=== PATIENT | male | born 1950 | race American Indian/Alaskan Native ===

== ENCOUNTER 2016-07-13 10:51 | Inpatient (IN) | payer MEDICARE, OTHER ==
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
[2016-07-13 11:24] VITALS: BMI 25.9
[2016-07-13 12:39] LABS: BASO # 0.1 K/uL (0.0-0.2); BASO % 0.8 % (0.0-2.0); EOS # 0.1 K/uL (0.0-0.7); EOS % 1.5 % (0.0-4.0); HEMATOCRIT 39.3 % (35.0-51.0); LYMPH # 1.6 K/uL (1.0-4.3); LYMPH % 21.9 % (20.0-40.0); MEAN CORPUSCULAR HEMOGLOBIN 30.4 pg (27.0-31.0); MEAN CORPUSCULAR HGB CONC 32.2 g/dL (33.0-37.0); MEAN PLATELET VOLUME 8.3 fL (7.2-11.7); MONO # 0.7 K/uL (0.0-0.8); MONO % 9.2 % (0.0-10.0); NRBC % 0.1 % (0.0-2.0); RED CELL DISTRIBUTION WIDTH 16.8 % (11.5-14.5)
[2016-07-13 12:41] LABS: MEAN CELL VOLUME 94.5 fL (80.0-94.0); WHITE BLOOD COUNT 7.1 K/uL (4.8-10.8)
[2016-07-13 13:24] LABS: CHLORIDE 102 mmol/L (98-107); SODIUM 136 mmol/L (132-148)
[2016-07-13 13:25] LABS: POTASSIUM 3.8 mmol/L (3.6-5.2)
[2016-07-13 13:26] LABS: GFR AFRICAN-AMERICAN > 60
[2016-07-13 13:27] LABS: ALKALINE PHOSPHATASE 128 U/L (38-126); ALT/SGPT 27 U/L (21-72); AST/SGOT 39 U/L (17-59); BILIRUBIN,TOTAL 1.8 mg/dL (0.2-1.3); BLOOD UREA NITROGEN 13 mg/dL (9-20); CALCIUM 9.2 mg/dl (8.6-10.4); CARBON DIOXIDE 23 mmol/L (22-30); GLUCOSE,RANDOM 88 mg/dL (75-110); TOTAL PROTEIN 8.2 g/dL (6.3-8.3)
[2016-07-13 13:28] LABS: ALCOHOL SERUM < 10 mg/dl (0-10)
[2016-07-13] MEDS ORDERED: Iodixanol 320 MG/ML 100 ML BOTTLE IV ONE (15:00)
[2016-07-13 15:11] LABS: RBC URINE 2 /hpf (0-3); URINE BILIRUBIN NEGATIVE (NEGATIVE); URINE BLOOD 1+ (NEGATIVE); URINE COLOR Yellow (YELLOW); URINE GLUCOSE (UA) NORMAL (Normal); URINE KETONE TRACE mg/dL (NEGATIVE); URINE LEUKOCYTE ESTERASE NEG Leu/uL (Negative); URINE PROTEIN 2+ mg/dL (NEGATIVE); URINE UROBILINOGEN NORMAL mg/dL (0.2-1.0); WBC URINE 1 /hpf (0-5)
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
[2016-07-13] MEDS ORDERED: Sodium Chloride 0.9% 1,000 ML IV ONE (15:46)
[2016-07-13] MEDS ORDERED: Morphine 4 MG/ML VIAL ONE (16:54)
[2016-07-13] MEDS ORDERED: Moxifloxacin IV 400mg/250ml NS 400 MG/250 ML BAG IVPB ONE ×2 (16:59→21:24)
[2016-07-13] MEDS ORDERED: Azithromycin 500 MG in Sodium Chloride 0.9% 250 ML IVPB STA (17:01)
[2016-07-13] MEDS ORDERED: Azithromycin 500mg/250ML NS 500 MG/250 ML BAG IVPB ONE (18:17)
[2016-07-13 18:29] LABS: C DIFF TOXIN A B POSITIVE ANTIGEN (NEGATIVE)
[2016-07-13 19:36] LABS: FECAL LEUKOCYTES NEGATIVE (NEGATIVE)
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
[2016-07-13] MEDS: Moxifloxacin IV 400mg/250ml NS 400 MG/250 ML BAG IVPB SCH (21:29)
[2016-07-13] MEDS ORDERED: LYRICA 75 MG PO SCH (21:30)
[2016-07-13] MEDS ORDERED: PERCOCET PO PRN (21:30)
[2016-07-13] MEDS ORDERED: Enoxaparin 150 mg Syringe SC SCH (21:30)
[2016-07-13] MEDS ORDERED: ZOLPIDEM 10 MG PO SCH (22:00)
[2016-07-13] MEDS: Dextrose 5%/0.9% NS 1,000 ML IV SCH (22:09)
[2016-07-13] MEDS: Oxycodone/Acetaminophen 5/325 mg Tab PO PRN (22:13)
[2016-07-14] MEDS: Vancomycin 125 MG/5 ML SOLN (ORAL/RECTAL) PO SCH ×5 (00:08→21:17)
[2016-07-14] MEDS: metroNIDAZOLE IV 500 mg/100 ml 500 MG/100 ML BAG IVPB SCH ×4 (00:10→22:09)
[2016-07-14] MEDS: Oxycodone/Acetaminophen 5/325 mg Tab PO PRN ×2 (08:42→14:47)
--- NOTE | 2016-07-14 13:27 | CP.PCM.PN ---
Subjective - Date & Time of Evaluation Date of Evaluation: 07/14/16 Time of Evaluation: 09:20 - Subjective Subjective: clinically same Objective - Vital Signs/Intake and Output Vital Signs (last 24 hours): Temp Pulse Resp BP Pulse Ox 98.6 F 83 20 136/65 98 07/14/16 08:09 07/14/16 08:09 07/14/16 08:09 07/14/16 08:09 07/14/16 08:09 Intake and Output: 07/14/16 07/14/16 06:59 18:59 Intake Total 720 Output Total 200 Balance 520 - Medications Medications: Current Medications Amlodipine Besylate (Norvasc) 10 mg PO DAILY [facility] Last Admin: 07/14/16 11:31 Dose: 10 mg Enoxaparin Sodium (Lovenox) 40 mg SC DAILY [facility] Dextrose/Sodium Chloride (Dextrose 5%/0.9% Ns 1000 Ml) 1,000 mls @ 75 mls/hr IV .[id number] [facility] Last Admin: 07/13/16 22:09 Dose: 75 mls/hr Moxifloxacin HCl (Avelox Iv 400mg/250ml Ns) 400 mg in 250 mls @ 167 mls/hr IVPB Q24H [facility] Last Admin: 07/13/16 21:29 Dose: Not Given Metronidazole (Flagyl) 500 mg in 100 mls @ 100 mls/hr IVPB Q8 [facility] Last Admin: 07/14/16 05:17 Dose: 100 mls/hr Oxycodone/Acetaminophen (Percocet 5/325 Mg Tab) 2 tab PO Q6 PRN PRN Reason: Pain, moderate (4-7) Last Admin: 07/14/16 08:42 Dose: 2 tab Pantoprazole Sodium (Protonix Inj) 40 mg IVP DAILY [facility] Last Admin: 07/14/16 11:31 Dose: 40 mg Pregabalin (Lyrica) 75 mg PO BID [facility] Last Admin: 07/14/16 11:31 Dose: 75 mg Vancomycin HCl (Vancocin (Oral Or Rectal Use)) 125 mg PO QID [facility] Last Admin: 07/14/16 11:31 Dose: 125 mg Zolpidem Tartrate (Ambien) 5 mg PO HS PRN PRN Reason: Insomnia Last Admin: 07/13/16 22:40 Dose: 5 mg - Labs Labs: PT 11.1 SECONDS (9.7-12.2) 07/13/16 14:24 INR 1.0 07/13/16 14:24 APTT 29 SECONDS (21-34) 07/13/16 14:24 - Constitutional Appears: Well - Head Exam Head Exam: ATRAUMATIC, NORMAL INSPECTION, NORMOCEPHALIC - Eye Exam Eye Exam: EOMI, Normal appearance, PERRL Pupil Exam: NORMAL ACCOMODATION, PERRL - ENT Exam ENT Exam: Mucous Membranes Moist, Normal Exam - Neck Exam Neck Exam: Full ROM, Normal Inspection. absent: Lymphadenopathy - Respiratory Exam Respiratory Exam: Decreased Breath Sounds - Cardiovascular Exam Cardiovascular Exam: REGULAR RHYTHM, +S1, +S2 - GI/Abdominal Exam GI & Abdominal Exam: Soft, Diminished Bowel Sounds - Rectal Exam Rectal Exam: Deferred Assessment and Plan (1) Abdominal pain Status: Acute (2) Abdominal pain Status: Acute (3) Asthma Status: Acute (4) Colitis Status: Acute (5) Diarrhea Status: Acute (6) HIV (human immunodeficiency virus infection) Status: Acute (7) HIV (human immunodeficiency virus infection) Status: Acute (8) Hepatitis B Status: Acute (9) Hepatitis C antibody test positive Status: Acute (10) Pancytopenia Status: Acute (11) Prophylactic measure Status: Acute (12) Rectal bleeding Status: Acute (13) Thrombocytopenia Status: Acute (14) Hypertension Status: Chronic - Assessment and Plan (Free Text) Plan: protonix lovenox avelox stool work up marjorie same ivf vanco po
[2016-07-14] MEDS: Enoxaparin 40 mg Syringe SC SCH (14:24)
[2016-07-14] MEDS: Dextrose 5%/0.9% NS 1,000 ML IV SCH ×2 (14:25)
[2016-07-14] MEDS: Moxifloxacin IV 400mg/250ml NS 400 MG/250 ML BAG IVPB SCH (20:30)
[2016-07-15] MEDS: Oxycodone/Acetaminophen 5/325 mg Tab PO PRN ×4 (03:40→22:39)
[2016-07-15] MEDS: metroNIDAZOLE IV 500 mg/100 ml 500 MG/100 ML BAG IVPB SCH ×3 (05:17→21:00)
[2016-07-15] MEDS: Dextrose 5%/0.9% NS 1,000 ML IV SCH ×4 (05:18→21:41)
[2016-07-15] MEDS: Enoxaparin 40 mg Syringe SC SCH (09:38)
[2016-07-15] MEDS: Vancomycin 125 MG/5 ML SOLN (ORAL/RECTAL) PO SCH ×4 (09:39→21:38)
--- NOTE | 2016-07-15 12:54 | CP.PCM.PN ---
Subjective - Date & Time of Evaluation Date of Evaluation: 07/15/16 Time of Evaluation: 09:40 - Subjective Subjective: clinically same Objective - Vital Signs/Intake and Output Vital Signs (last 24 hours): Temp Pulse Resp BP Pulse Ox 98.3 F 85 20 109/66 97 07/15/16 07:43 07/15/16 07:43 07/15/16 07:43 07/15/16 07:43 07/15/16 07:43 Intake and Output: 07/15/16 07/15/16 06:59 18:59 Intake Total 840 Balance 840 - Medications Medications: Current Medications Amlodipine Besylate (Norvasc) 10 mg PO DAILY [facility] Last Admin: 07/15/16 09:38 Dose: 10 mg Enoxaparin Sodium (Lovenox) 40 mg SC DAILY [facility] Last Admin: 07/15/16 09:38 Dose: 40 mg Dextrose/Sodium Chloride (Dextrose 5%/0.9% Ns 1000 Ml) 1,000 mls @ 75 mls/hr IV .[id number] [facility] Last Admin: 07/15/16 05:18 Dose: 75 mls/hr Moxifloxacin HCl (Avelox Iv 400mg/250ml Ns) 400 mg in 250 mls @ 167 mls/hr IVPB Q24H [facility] Last Admin: 07/14/16 20:30 Dose: 167 mls/hr Metronidazole (Flagyl) 500 mg in 100 mls @ 100 mls/hr IVPB Q8 [facility] Last Admin: 07/15/16 05:17 Dose: 100 mls/hr Oxycodone/Acetaminophen (Percocet 5/325 Mg Tab) 2 tab PO Q6 PRN PRN Reason: Pain, moderate (4-7) Last Admin: 07/15/16 09:38 Dose: 2 tab Pantoprazole Sodium (Protonix Inj) 40 mg IVP DAILY [facility] Last Admin: 07/15/16 09:38 Dose: 40 mg Pregabalin (Lyrica) 75 mg PO BID [facility] Last Admin: 07/15/16 09:38 Dose: 75 mg Vancomycin HCl (Vancocin (Oral Or Rectal Use)) 125 mg PO QID [facility] Last Admin: 07/15/16 09:39 Dose: 125 mg Zolpidem Tartrate (Ambien) 5 mg PO HS PRN PRN Reason: Insomnia Last Admin: 07/14/16 22:22 Dose: 5 mg - Labs Labs: PT 11.1 SECONDS (9.7-12.2) 07/13/16 14:24 INR 1.0 07/13/16 14:24 APTT 29 SECONDS (21-34) 07/13/16 14:24 - Constitutional Appears: Well - Head Exam Head Exam: ATRAUMATIC, NORMAL INSPECTION, NORMOCEPHALIC - Eye Exam Eye Exam: EOMI, Normal appearance, PERRL Pupil Exam: NORMAL ACCOMODATION, PERRL - ENT Exam ENT Exam: Mucous Membranes Moist, Normal Exam - Neck Exam Neck Exam: Full ROM, Normal Inspection. absent: Lymphadenopathy - Respiratory Exam Respiratory Exam: Decreased Breath Sounds - Cardiovascular Exam Cardiovascular Exam: REGULAR RHYTHM, +S1, +S2 - GI/Abdominal Exam GI & Abdominal Exam: Soft, Diminished Bowel Sounds - Rectal Exam Rectal Exam: Deferred Assessment and Plan (1) Abdominal pain Status: Acute (2) Abdominal pain Status: Acute (3) Asthma Status: Acute (4) Colitis Status: Acute (5) Diarrhea Status: Acute (6) HIV (human immunodeficiency virus infection) Status: Acute (7) HIV (human immunodeficiency virus infection) Status: Acute (8) Hepatitis B Status: Acute (9) Hepatitis C antibody test positive Status: Acute (10) Pancytopenia Status: Acute (11) Prophylactic measure Status: Acute (12) Rectal bleeding Status: Acute (13) Thrombocytopenia Status: Acute (14) Hypertension Status: Chronic - Assessment and Plan (Free Text) Plan: protonix lovenox avelox marjorie same ivf vanco po
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
[2016-07-15] MEDS: Moxifloxacin IV 400mg/250ml NS 400 MG/250 ML BAG IVPB SCH (21:39)
[2016-07-16] MEDS: Dextrose 5%/0.9% NS 1,000 ML IV SCH ×3 (02:50→17:17)
[2016-07-16] MEDS: Oxycodone/Acetaminophen 5/325 mg Tab PO PRN ×3 (05:26→17:18)
[2016-07-16] MEDS: metroNIDAZOLE IV 500 mg/100 ml 500 MG/100 ML BAG IVPB SCH ×3 (05:27→21:20)
[2016-07-16] MEDS: Vancomycin 125 MG/5 ML SOLN (ORAL/RECTAL) PO SCH ×4 (11:05→21:20)
[2016-07-16] MEDS: Enoxaparin 40 mg Syringe SC SCH (11:06)
--- NOTE | 2016-07-16 18:11 | CP.PCM.PN ---
Subjective - Date & Time of Evaluation Date of Evaluation: 07/16/16 Time of Evaluation: 09:00 - Subjective Subjective: clinically same Objective - Vital Signs/Intake and Output Vital Signs (last 24 hours): Temp Pulse Resp BP Pulse Ox 98.3 F 72 23 117/66 97 07/16/16 15:00 07/16/16 15:00 07/16/16 15:00 07/16/16 15:00 07/16/16 15:00 Intake and Output: 07/16/16 07/16/16 06:59 18:59 Intake Total 2610 1100 Balance 2610 1100 - Medications Medications: Current Medications Amlodipine Besylate (Norvasc) 10 mg PO DAILY [facility] Last Admin: 07/16/16 11:06 Dose: 10 mg Enoxaparin Sodium (Lovenox) 40 mg SC DAILY [facility] Last Admin: 07/16/16 11:06 Dose: 40 mg Dextrose/Sodium Chloride (Dextrose 5%/0.9% Ns 1000 Ml) 1,000 mls @ 75 mls/hr IV .[id number] [facility] Last Admin: 07/16/16 17:17 Dose: 75 mls/hr Moxifloxacin HCl (Avelox Iv 400mg/250ml Ns) 400 mg in 250 mls @ 167 mls/hr IVPB Q24H [facility] Last Admin: 07/15/16 21:39 Dose: 167 mls/hr Metronidazole (Flagyl) 500 mg in 100 mls @ 100 mls/hr IVPB Q8 [facility] Last Admin: 07/16/16 14:16 Dose: 100 mls/hr Oxycodone/Acetaminophen (Percocet 5/325 Mg Tab) 2 tab PO Q6 PRN PRN Reason: Pain, moderate (4-7) Last Admin: 07/16/16 17:18 Dose: 2 tab Pantoprazole Sodium (Protonix Inj) 40 mg IVP DAILY [facility] Last Admin: 07/16/16 11:05 Dose: 40 mg Pregabalin (Lyrica) 75 mg PO BID [facility] Last Admin: 07/16/16 17:18 Dose: 75 mg Vancomycin HCl (Vancocin (Oral Or Rectal Use)) 125 mg PO QID [facility] Last Admin: 07/16/16 17:21 Dose: 125 mg Zolpidem Tartrate (Ambien) 5 mg PO HS PRN PRN Reason: Insomnia Last Admin: 07/15/16 23:58 Dose: 5 mg - Labs Labs: PT 11.1 SECONDS (9.7-12.2) 07/13/16 14:24 INR 1.0 07/13/16 14:24 APTT 29 SECONDS (21-34) 07/13/16 14:24 - Constitutional Appears: Well - Head Exam Head Exam: ATRAUMATIC, NORMAL INSPECTION, NORMOCEPHALIC - Eye Exam Eye Exam: EOMI, Normal appearance, PERRL Pupil Exam: NORMAL ACCOMODATION, PERRL - ENT Exam ENT Exam: Mucous Membranes Moist, Normal Exam - Neck Exam Neck Exam: Full ROM, Normal Inspection. absent: Lymphadenopathy - Respiratory Exam Respiratory Exam: Decreased Breath Sounds - Cardiovascular Exam Cardiovascular Exam: REGULAR RHYTHM, +S1, +S2 - GI/Abdominal Exam GI & Abdominal Exam: Soft, Diminished Bowel Sounds - Rectal Exam Rectal Exam: Deferred Assessment and Plan (1) Abdominal pain Status: Acute (2) Abdominal pain Status: Acute (3) Asthma Status: Acute (4) Colitis Status: Acute (5) Diarrhea Status: Acute (6) HIV (human immunodeficiency virus infection) Status: Acute (7) HIV (human immunodeficiency virus infection) Status: Acute (8) Hepatitis B Status: Acute (9) Hepatitis C antibody test positive Status: Acute (10) Pancytopenia Status: Acute (11) Prophylactic measure Status: Acute (12) Rectal bleeding Status: Acute (13) Thrombocytopenia Status: Acute (14) Hypertension Status: Chronic - Assessment and Plan (Free Text) Plan: protonix lovenox avelox marjorie same ivf vanco po
[2016-07-16] MEDS: Moxifloxacin IV 400mg/250ml NS 400 MG/250 ML BAG IVPB SCH (20:35)
[2016-07-17 00:21] VITALS: RESP 20
[2016-07-17] MEDS: Oxycodone/Acetaminophen 5/325 mg Tab PO PRN ×4 (00:32→19:05)
[2016-07-17] MEDS: metroNIDAZOLE IV 500 mg/100 ml 500 MG/100 ML BAG IVPB SCH ×3 (05:18→22:32)
[2016-07-17] MEDS: Enoxaparin 40 mg Syringe SC SCH (11:18)
[2016-07-17] MEDS: Vancomycin 125 MG/5 ML SOLN (ORAL/RECTAL) PO SCH ×4 (11:18→21:30)
--- NOTE | 2016-07-17 12:06 | CP.PCM.PN ---
Subjective - Date & Time of Evaluation Date of Evaluation: 07/17/16 Time of Evaluation: 08:00 - Subjective Subjective: no new complaints discussed with dR lillie Longoria [employer] Objective - Vital Signs/Intake and Output Vital Signs (last 24 hours): Temp Pulse Resp BP Pulse Ox 98.4 F 73 20 138/82 100 07/17/16 08:00 07/17/16 08:00 07/17/16 08:00 07/17/16 08:00 07/17/16 08:00 Intake and Output: 07/17/16 07/17/16 06:59 18:59 Intake Total 1920 400 Balance 1920 400 - Medications Medications: Current Medications Acetaminophen (Tylenol 325mg Tab) 650 mg PO Q8 PRN PRN Reason: for pain Last Admin: 07/16/16 21:19 Dose: 650 mg Amlodipine Besylate (Norvasc) 10 mg PO DAILY [facility] Last Admin: 07/17/16 11:19 Dose: 10 mg Enoxaparin Sodium (Lovenox) 40 mg SC DAILY [facility] Last Admin: 07/17/16 11:18 Dose: 40 mg Moxifloxacin HCl (Avelox Iv 400mg/250ml Ns) 400 mg in 250 mls @ 167 mls/hr IVPB Q24H [facility] Last Admin: 07/16/16 20:35 Dose: 167 mls/hr Metronidazole (Flagyl) 500 mg in 100 mls @ 100 mls/hr IVPB Q8 [facility] Last Admin: 07/17/16 05:18 Dose: 100 mls/hr Oxycodone/Acetaminophen (Percocet 5/325 Mg Tab) 2 tab PO Q6 PRN PRN Reason: Pain, moderate (4-7) Last Admin: 07/17/16 06:33 Dose: 2 tab Pantoprazole Sodium (Protonix Inj) 40 mg IVP DAILY [facility] Last Admin: 07/17/16 11:18 Dose: 40 mg Pregabalin (Lyrica) 75 mg PO BID [facility] Last Admin: 07/17/16 11:19 Dose: 75 mg Vancomycin HCl (Vancocin (Oral Or Rectal Use)) 125 mg PO QID [facility] Last Admin: 07/17/16 11:18 Dose: 125 mg Zolpidem Tartrate (Ambien) 5 mg PO HS PRN PRN Reason: Insomnia Last Admin: 07/16/16 22:47 Dose: 5 mg - Labs Labs: PT 11.1 SECONDS (9.7-12.2) 07/13/16 14:24 INR 1.0 07/13/16 14:24 APTT 29 SECONDS (21-34) 07/13/16 14:24 - Constitutional Appears: Non-toxic, Cachectic, Chronically Ill - Head Exam Head Exam: NORMOCEPHALIC - Eye Exam Eye Exam: PERRL. absent: Scleral icterus - ENT Exam ENT Exam: Mucous Membranes Dry - Neck Exam Neck Exam: absent: Lymphadenopathy - Respiratory Exam Respiratory Exam: Decreased Breath Sounds, Rhonchi - Cardiovascular Exam Cardiovascular Exam: REGULAR RHYTHM, +S1, +S2 - GI/Abdominal Exam GI & Abdominal Exam: Distended, Soft. absent: Tenderness - Rectal Exam Rectal Exam: Deferred - Exam Exam: NORMAL INSPECTION - Extremities Exam Extremities Exam: absent: Pedal Edema - Back Exam Back Exam: absent: CVA tenderness (L), CVA tenderness (R) Assessment and Plan (1) HIV (human immunodeficiency virus infection) Status: Acute (2) HIV (human immunodeficiency virus infection) Status: Acute (3) Abdominal pain Status: Acute (4) Diarrhea Status: Acute (5) Abdominal pain Status: Acute (6) Colitis Status: Acute (7) Hepatitis C antibody test positive Status: Acute (8) Pancytopenia Status: Acute - Assessment and Plan (Free Text) Assessment: WOULD RESUME HIV MEDS
[2016-07-17 15:19] LABS: BASO % 0.5 % (0.0-2.0); EOS # 0.2 K/uL (0.0-0.7); HEMATOCRIT 31.8 % (35.0-51.0); LYMPH # 2.6 K/uL (1.0-4.3); LYMPH % 43.6 % (20.0-40.0); MEAN CELL VOLUME 94.2 fL (80.0-94.0); MEAN CORPUSCULAR HEMOGLOBIN 31.1 pg (27.0-31.0); MEAN PLATELET VOLUME 8.9 fL (7.2-11.7); MONO # 0.5 K/uL (0.0-0.8); MONO % 9.1 % (0.0-10.0); RED CELL DISTRIBUTION WIDTH 16.5 % (11.5-14.5)
[2016-07-17 15:33] LABS: CHLORIDE 108 mmol/L (98-107); POTASSIUM 3.7 mmol/L (3.6-5.2); SODIUM 135 mmol/L (132-148)
--- NOTE | 2016-07-17 15:33 | CP.PCM.PN ---
Subjective - Date & Time of Evaluation Date of Evaluation: 07/17/16 Time of Evaluation: 09:00 - Subjective Subjective: clinically same Objective - Vital Signs/Intake and Output Vital Signs (last 24 hours): Temp Pulse Resp BP Pulse Ox 98.4 F 73 20 138/82 100 07/17/16 08:00 07/17/16 08:00 07/17/16 08:00 07/17/16 08:00 07/17/16 08:00 Intake and Output: 07/17/16 07/17/16 06:59 18:59 Intake Total 1920 400 Balance 1920 400 - Medications Medications: Current Medications Acetaminophen (Tylenol 325mg Tab) 650 mg PO Q8 PRN PRN Reason: for pain Last Admin: 07/16/16 21:19 Dose: 650 mg Amlodipine Besylate (Norvasc) 10 mg PO DAILY [facility] Last Admin: 07/17/16 11:19 Dose: 10 mg Dicyclomine HCl (Bentyl) 20 mg PO QID [facility] Stop: 07/20/16 14:01 Last Admin: 07/17/16 14:06 Dose: 20 mg Enoxaparin Sodium (Lovenox) 40 mg SC DAILY [facility] Last Admin: 07/17/16 11:18 Dose: 40 mg Moxifloxacin HCl (Avelox Iv 400mg/250ml Ns) 400 mg in 250 mls @ 167 mls/hr IVPB Q24H [facility] Last Admin: 07/16/16 20:35 Dose: 167 mls/hr Metronidazole (Flagyl) 500 mg in 100 mls @ 100 mls/hr IVPB Q8 [facility] Last Admin: 07/17/16 14:08 Dose: 100 mls/hr Oxycodone/Acetaminophen (Percocet 5/325 Mg Tab) 2 tab PO Q6 PRN PRN Reason: Pain, moderate (4-7) Last Admin: 07/17/16 12:44 Dose: 2 tab Pantoprazole Sodium (Protonix Inj) 40 mg IVP DAILY [facility] Last Admin: 07/17/16 11:18 Dose: 40 mg Pregabalin (Lyrica) 75 mg PO BID [facility] Last Admin: 07/17/16 11:19 Dose: 75 mg Vancomycin HCl (Vancocin (Oral Or Rectal Use)) 125 mg PO QID [facility] Last Admin: 07/17/16 14:07 Dose: 125 mg Zolpidem Tartrate (Ambien) 5 mg PO HS PRN PRN Reason: Insomnia Last Admin: 07/16/16 22:47 Dose: 5 mg - Labs Labs: 07/17/16 15:09 PT 11.1 SECONDS (9.7-12.2) 07/13/16 14:24 INR 1.0 07/13/16 14:24 APTT 29 SECONDS (21-34) 07/13/16 14:24 - Constitutional Appears: Well - Head Exam Head Exam: ATRAUMATIC, NORMAL INSPECTION, NORMOCEPHALIC - Eye Exam Eye Exam: EOMI, Normal appearance, PERRL Pupil Exam: NORMAL ACCOMODATION, PERRL - ENT Exam ENT Exam: Mucous Membranes Moist, Normal Exam - Neck Exam Neck Exam: Full ROM, Normal Inspection. absent: Lymphadenopathy - Respiratory Exam Respiratory Exam: Decreased Breath Sounds - Cardiovascular Exam Cardiovascular Exam: REGULAR RHYTHM, +S1, +S2 - GI/Abdominal Exam GI & Abdominal Exam: Soft, Diminished Bowel Sounds - Rectal Exam Rectal Exam: Deferred Assessment and Plan (1) Abdominal pain Status: Acute (2) Abdominal pain Status: Acute (3) Asthma Status: Acute (4) Colitis Status: Acute (5) Diarrhea Status: Acute (6) HIV (human immunodeficiency virus infection) Status: Acute (7) HIV (human immunodeficiency virus infection) Status: Acute (8) Hepatitis B Status: Acute (9) Hepatitis C antibody test positive Status: Acute (10) Pancytopenia Status: Acute (11) Prophylactic measure Status: Acute (12) Rectal bleeding Status: Acute (13) Thrombocytopenia Status: Acute (14) Hypertension Status: Chronic - Assessment and Plan (Free Text) Plan: f/u with ID protonix lvoenox avelox marjorie same ivf vanco po
[2016-07-17 15:36] LABS: BLOOD UREA NITROGEN 8 mg/dL (9-20); CARBON DIOXIDE 17 mmol/L (22-30); GFR AFRICAN-AMERICAN > 60
[2016-07-17 15:37] LABS: CALCIUM 7.8 mg/dl (8.6-10.4); GLUCOSE,RANDOM 109 mg/dL (75-110)
[2016-07-17 17:22] VITALS: O2SAT 97
[2016-07-17] MEDS: Moxifloxacin IV 400mg/250ml NS 400 MG/250 ML BAG IVPB SCH (21:30)
[2016-07-18] MEDS: Oxycodone/Acetaminophen 5/325 mg Tab PO PRN ×3 (05:07→16:59)
[2016-07-18] MEDS: metroNIDAZOLE IV 500 mg/100 ml 500 MG/100 ML BAG IVPB SCH ×2 (05:10→14:13)
[2016-07-18] MEDS: Vancomycin 125 MG/5 ML SOLN (ORAL/RECTAL) PO SCH ×2 (11:05→14:14)
[2016-07-18] MEDS: Enoxaparin 40 mg Syringe SC SCH (11:06)
--- NOTE | 2016-07-18 11:29 | CP.PCM.PN ---
Subjective - Date & Time of Evaluation Date of Evaluation: 07/18/16 Time of Evaluation: 08:20 - Subjective Subjective: clinically same Objective - Vital Signs/Intake and Output Vital Signs (last 24 hours): Temp Pulse Resp BP Pulse Ox 98.2 F 71 20 126/74 97 07/18/16 07:59 07/18/16 07:59 07/18/16 07:59 07/18/16 07:59 07/18/16 07:59 Intake and Output: 07/18/16 07/18/16 06:59 18:59 Intake Total 1180 Output Total 1500 Balance -320 - Medications Medications: Current Medications Acetaminophen (Tylenol 325mg Tab) 650 mg PO Q8 PRN PRN Reason: for pain Last Admin: 07/17/16 17:33 Dose: 650 mg Amlodipine Besylate (Norvasc) 10 mg PO DAILY [facility] Last Admin: 07/18/16 11:06 Dose: 10 mg Dicyclomine HCl (Bentyl) 20 mg PO QID [facility] Stop: 07/20/16 14:01 Last Admin: 07/18/16 11:06 Dose: 20 mg Enoxaparin Sodium (Lovenox) 40 mg SC DAILY [facility] Last Admin: 07/18/16 11:06 Dose: 40 mg Moxifloxacin HCl (Avelox Iv 400mg/250ml Ns) 400 mg in 250 mls @ 167 mls/hr IVPB Q24H [facility] Last Admin: 07/17/16 21:30 Dose: 167 mls/hr Metronidazole (Flagyl) 500 mg in 100 mls @ 100 mls/hr IVPB Q8 [facility] Last Admin: 07/18/16 05:10 Dose: 100 mls/hr Oxycodone/Acetaminophen (Percocet 5/325 Mg Tab) 2 tab PO Q6H PRN PRN Reason: Pain, moderate (4-7) Stop: 07/20/16 23:03 Last Admin: 07/18/16 11:04 Dose: 2 tab Pantoprazole Sodium (Protonix Inj) 40 mg IVP DAILY [facility] Last Admin: 07/18/16 11:05 Dose: 40 mg Pregabalin (Lyrica) 75 mg PO BID [facility] Last Admin: 07/18/16 11:06 Dose: 75 mg Vancomycin HCl (Vancocin (Oral Or Rectal Use)) 125 mg PO QID [facility] Last Admin: 07/18/16 11:05 Dose: 125 mg Zolpidem Tartrate (Ambien) 5 mg PO HS PRN PRN Reason: Insomnia Last Admin: 07/17/16 22:31 Dose: 5 mg - Labs Labs: 07/17/16 15:09 07/17/16 15:09 PT 11.1 SECONDS (9.7-12.2) 07/13/16 14:24 INR 1.0 07/13/16 14:24 APTT 29 SECONDS (21-34) 07/13/16 14:24 - Constitutional Appears: Well - Head Exam Head Exam: ATRAUMATIC, NORMAL INSPECTION, NORMOCEPHALIC - Eye Exam Eye Exam: EOMI, Normal appearance, PERRL Pupil Exam: NORMAL ACCOMODATION, PERRL - ENT Exam ENT Exam: Mucous Membranes Moist, Normal Exam - Neck Exam Neck Exam: Full ROM, Normal Inspection. absent: Lymphadenopathy - Respiratory Exam Respiratory Exam: Decreased Breath Sounds - Cardiovascular Exam Cardiovascular Exam: REGULAR RHYTHM, +S1, +S2 - GI/Abdominal Exam GI & Abdominal Exam: Soft, Diminished Bowel Sounds - Rectal Exam Rectal Exam: Deferred Assessment and Plan - Assessment and Plan (Free Text) Plan: diarrhoea so far only one andimproved cd4 s good marjorie same discharge to rehab todya .. pt agreed
[2016-07-18 13:20] LABS: BASO % 0.7 % (0.0-2.0); EOS # 0.2 K/uL (0.0-0.7); EOS % 4.2 % (0.0-4.0); HEMATOCRIT 31.9 % (35.0-51.0); LYMPH # 2.5 K/uL (1.0-4.3); LYMPH % 45.8 % (20.0-40.0); MEAN CORPUSCULAR HEMOGLOBIN 30.4 pg (27.0-31.0); MONO # 0.5 K/uL (0.0-0.8); MONO % 9.7 % (0.0-10.0); NRBC % 0.1 % (0.0-2.0); RED CELL DISTRIBUTION WIDTH 16.5 % (11.5-14.5); WHITE BLOOD COUNT 5.5 K/uL (4.8-10.8)
[2016-07-18 13:39] LABS: CHLORIDE 110 mmol/L (98-107); POTASSIUM 3.7 mmol/L (3.6-5.2); SODIUM 137 mmol/L (132-148)
[2016-07-18 13:42] LABS: ALB/GLOB RATIO 0.9 (1.0-2.1); ALKALINE PHOSPHATASE 87 U/L (38-126); ALT/SGPT 34 U/L (21-72); AST/SGOT 40 U/L (17-59); BILIRUBIN,TOTAL 0.4 mg/dL (0.2-1.3); BLOOD UREA NITROGEN 9 mg/dL (9-20); CALCIUM 7.3 mg/dl (8.6-10.4); CARBON DIOXIDE 18 mmol/L (22-30); GFR AFRICAN-AMERICAN > 60; GLUCOSE,RANDOM 100 mg/dL (75-110); TOTAL PROTEIN 6.3 g/dL (6.3-8.3)
[2016-07-18 16:52] VITALS: BP 116/66; PULSE 74; TEMP 98.4
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
== END 2016-07-18 18:30 | DRG 977 ==
LOC: C.ER 10:51 → C.9E 17:02 → OBSVTOIN 18:50 → C.3T 20:55
PROVIDERS: ADMIT Internal Medicine Nephrology; ATTEND Internal Medicine Nephrology
DX: B20 Human immunodeficiency virus [HIV] disease (principal); A04.7 Enterocolitis due to Clostridium difficile; B19.10 Unspecified viral hepatitis B without hepatic coma; B19.20 Unspecified viral hepatitis C without hepatic coma; Z59.0 Homelessness; F17.210 Nicotine dependence, cigarettes, uncomplicated; S43.005A Unspecified dislocation of left shoulder joint, initial encounter; V03.10XA Pedestrian on foot injured in collision with car, pick-up truck or van in traffic accident, initial encounter; Y92.410 Unspecified street and highway as the place of occurrence of the external cause

== ENCOUNTER 2016-09-27 21:10 | Emergency (ER) | payer MEDICARE ==
[2016-09-27 21:10] VITALS: BMI 25.9
[2016-09-27 21:31] VITALS: RESP 18; O2SAT 99
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
[2016-09-27 23:42] VITALS: BP 145/80; PULSE 83; TEMP 97.7
[2016-09-27] MEDS ORDERED: Bacitracin 500 Units/gm Oint Foilpak UD TOP ONE (23:48)
[2016-09-27] MEDS ORDERED: Bacitracin 500 Units/gm Oint Foilpak UD ONE (23:51)
[2016-09-28] MEDS ORDERED: Amoxicillin-Clav 875-125 mg Tab PO ONE (00:05)
[2016-09-28] MEDS ORDERED: Amoxicillin-Clav 875-125 mg Tab PO STA (00:05)
== END 2016-09-28 00:11 | disposition home or self-care (01) ==
LOC: C.ER 21:10
DX: S02.2XXA Fracture of nasal bones, initial encounter for closed fracture (principal); S00.83XA Contusion of other part of head, initial encounter; S00.31XA Abrasion of nose, initial encounter; Y08.89XA Assault by other specified means, initial encounter

== ENCOUNTER 2017-05-13 02:17 | Observation (INO) | payer MEDICARE ==
[2017-05-13 02:18] VITALS: BMI 25.9
--- NOTE | 2017-05-13 03:47 | C.PDOC ---
History Of Present Illness <Christian Zelaya R - Last Filed: 05/13/17 06:39> <Brian De La Vega M - Last Filed: 05/13/17 09:14> 66 y/o male presents to the ED complaining of left sided chest pain since tonight. No sweating. Also reports feeling short of breath. Denies any associated cough, fever, or chills. (Christian Zelaya R) History Per: Patient History/Exam Limitations: no limitations Onset/Duration Of Symptoms: Hrs Current Symptoms Are (Timing): Still Present <Christian Zelaya R - Last Filed: 05/13/17 06:39> <Brian De La Vega M - Last Filed: 05/13/17 09:14> Time Seen by Provider: 05/13/17 03:22 Chief Complaint (Nursing): Chest Pain Past Medical History Reviewed: Historical Data, Nursing Documentation, Vital Signs - Medical History PMH: Asthma, Bronchitis, HTN Other Surgeries: Right ankle, right knee, left hip replacement, neck surgery Family History: States: Unknown Family Hx - Social History Hx Tobacco Use: Yes Hx Alcohol Use: Yes Hx Substance Use: No - Immunization History Hx Tetanus Toxoid Vaccination: Yes Hx Influenza Vaccination: Yes Hx Pneumococcal Vaccination: Yes <Christian Zelaya - Last Filed: 05/13/17 06:39> Vital Signs: Last Vital Signs Temp 97.5 F L 05/13/17 02:40 Pulse 62 05/13/17 07:05 Resp 16 05/13/17 07:05 BP 122/79 05/13/17 07:05 Pulse Ox 98 05/13/17 07:05 Review Of Systems Except As Marked, All Systems Reviewed And Found Negative. Constitutional: Negative for: Fever, Chills, Sweats ENT: Negative for: Nose Congestion Cardiovascular: Positive for: Chest Pain Respiratory: Positive for: Shortness of Breath. Negative for: Cough Gastrointestinal: Negative for: Nausea, Vomiting <Christian Zelaya - Last Filed: 05/13/17 06:39> Physical Exam - Physical Exam Appears: No Acute Distress Skin: Normal Color, Warm, Dry Head: Atraumatic, Normacephalic Eye(s): bilateral: Normal Inspection, PERRL, EOMI Nose: Normal Oral Mucosa: Moist Neck: Normal ROM, Supple Chest: Tenderness (Mild tenderness to left chest wall area) Cardiovascular: Rhythm Regular, No Murmur Respiratory: Decreased Breath Sounds (bilaterally), No Rales, No Rhonchi, No Wheezing Gastrointestinal/Abdominal: Soft, No Tenderness, No Distention Extremity: Bilateral: Atraumatic, Normal Color And Temperature, Normal ROM Neurological/Psych: Oriented x3, Normal Speech <GarciaChristian R - Last Filed: 05/13/17 06:39> ED Course And Treatment - Laboratory Results Result Diagrams: 05/13/17 04:01 05/13/17 04:47 O2 Sat by Pulse Oximetry: 100 (RA) Pulse Ox Interpretation: Normal <GarciaChristian R - Last Filed: 05/13/17 06:39> - Laboratory Results Result Diagrams: 05/13/17 04:01 05/13/17 04:47 <Brian De La Vega - Last Filed: 05/13/17 09:14> Medical Decision Making <ZelayaChristian R - Last Filed: 05/13/17 06:39> <Brian De La Vega - Last Filed: 05/13/17 09:14> Medical Decision Making: Time: 3:27 Initial Plan: --EKG --Basic blood work --Pro-BNP --Troponin I --D dimer --Chest x-ray --Reevaluation Labs reviewed: D dimer elevated at 865 Pending PE study. 7:00 Dr. De La Vega to take over care, patient still pending PE study (Christian Zelaya R) Disposition Discussed With : Brian De La Vega (pending PE study) Counseled Patient/Family Regarding: Studies Performed, Diagnosis - Disposition Disposition Time: 07:00 <Christian Zelaya - Last Filed: 05/13/17 06:39> - Disposition Disposition Time: 09:13 <Brian De La Vega - Last Filed: 05/13/17 09:14> - Disposition Condition: FAIR Forms: [facility] (Amharic) - Clinical Impression Clinical Impression: Chest pain - Scribe Statement The provider has reviewed the documentation as recorded by the Scribe (Nahomy Kim) <Christian Zelaya R - Last Filed: 05/13/17 06:39> <Brian De La Vega - Last Filed: 05/13/17 09:14> - Scribe Statement Provider Attestation: All medical record entries made by the Scribe were at my direction and personally dictated by me. I have reviewed the chart and agree that the record accurately reflects my personal performance of the history, physical exam, medical decision making, and the department course for this patient. I have also personally directed, reviewed, and agree with the discharge instructions and disposition. (Christian Zelaya) Addendum <Christian Zelaya R - Last Filed: 05/13/17 06:39> <Brian De La Vega M - Last Filed: 05/13/17 09:14> Addendum: 05/13/17 09:11 Received patient in s/o with chest pain and sob. PE study ordered. Case discussed with Dr. Christy Hinojosa and will admit to tele observation. Discussed with Dr. Sharan Tapia and everette to admit to Dr. Christy Hinojosa. (Brian De La Vega ) Disposition <Christian Zelaya R - Last Filed: 05/13/17 06:39> Discussed With Dr.: Jonathan Hinojosa Doctor Will See Patient In The: Hospital Counseled Patient/Family Regarding: Studies Performed, Diagnosis Disposition Time: :13 - POA Present On Arrival: None <Brian De La Vega - Last Filed: 05/13/17 09:14> Clinical Impression: Chest pain Disposition: HOSPITALIZED Condition: FAIR Stand Alone Forms: [facility] (Amharic)
[2017-05-13 04:04] LABS: BASO % 0.7 % (0.0-2.0); EOS # 0.3 K/uL (0.0-0.7); EOS % 4.4 % (0.0-4.0); HEMOGLOBIN 12.1 g/dL (12.0-18.0); LYMPH % 27.4 % (20.0-40.0); MEAN CELL VOLUME 95.3 fL (80.0-94.0); MEAN CORPUSCULAR HEMOGLOBIN 31.6 pg (27.0-31.0); MEAN CORPUSCULAR HGB CONC 33.1 g/dL (33.0-37.0); MEAN PLATELET VOLUME 8.3 fL (7.2-11.7); MONO # 0.7 K/uL (0.0-0.8); MONO % 10.4 % (0.0-10.0); NEUT # 4.1 K/uL (1.8-7.0); NEUT % 57.1 % (50.0-75.0); NRBC % 0.1 % (0.0-2.0); RBC 3.84 Mil/uL (4.40-5.90); RED CELL DISTRIBUTION WIDTH 16.2 % (11.5-14.5); WHITE BLOOD COUNT 7.2 K/uL (4.8-10.8)
[2017-05-13 05:09] LABS: ALB/GLOB RATIO 0.9 (1.0-2.1); ALT/SGPT 39 U/L (21-72); AST/SGOT 42 U/L (17-59); BLOOD UREA NITROGEN 15 mg/dL (9-20); CALCIUM 9.3 mg/dl (8.6-10.4); GFR AFRICAN-AMERICAN > 60; GFR NON-AFRICAN AMERICAN > 60
[2017-05-13 05:21] LABS: B-TYPE NATRIURETIC PEPTIDE 126 pg/mL (0-900)
[2017-05-13] MEDS ORDERED: Iodixanol 320 MG/ML 100 ML BOTTLE IV ONE (06:09)
--- NOTE | 2017-05-13 07:26 | CT ---
EXAM: CT Angiography Chest With Intravenous Contrast EXAM DATE/TIME: 05/13/2017 4:22 AM CLINICAL HISTORY: 66 years old, male; Pain; Chest pain; Additional info: Chest pain/ sob/ elev/ d-dimer. Pt had 22g size i couldn't hold the 2.7 cc pressure, and i redo the study as chest w/contrast TECHNIQUE: Axial computed tomographic angiography images of the chest with intravenous contrast using pulmonary embolism protocol. All CT scans at this facility use one or more dose reduction techniques, viz.: automated exposure control; ma/kV adjustment per patient size (including targeted exams where dose is matched to indication; i.e. head); or iterative reconstruction technique. MIP reconstructed images were created and reviewed. Coronal and sagittal reformatted images were created and reviewed. CONTRAST: 100 mL of [id number] administered intravenously. COMPARISON: No relevant prior studies available. FINDINGS: Pulmonary arteries: Examination technically limited for evaluation of pulmonary embolism secondary to suboptimal contrast bolus. Contrast density in the pulmonary trunk, on 2 separate attempts, only in the 140s Hounsfield units. No large defect in the main pulmonary and lobar arteries. Aorta: No thoracic aortic aneurysm or dissection. Lungs: Unremarkable. No mass. No consolidation. Pleural space: Unremarkable. No significant effusion. No pneumothorax. Heart: Unremarkable. No cardiomegaly. No significant pericardial effusion. No evidence of RV dysfunction. Bones/joints: No acute fracture. Soft tissues: Unremarkable. Lymph nodes: No enlarged lymph nodes. IMPRESSION: Limited examination, no large embolus in main or lobar arteries.
[2017-05-13] MEDS ORDERED: Albuterol-Ipratrop 3 mg / 0.5 (3 ml) UD INH STA (08:23)
[2017-05-13] MEDS ORDERED: Albuterol-Ipratrop 3 mg / 0.5 (3 ml) UD ONE (08:30)
--- NOTE | 2017-05-13 10:11 | RAD ---
HISTORY: chest pain COMPARISON: 11/18/2013 TECHNIQUE: Chest PA and lateral FINDINGS: LUNGS: No active pulmonary disease. PLEURA: No significant pleural effusion identified. No pneumothorax apparent. CARDIOVASCULAR: Normal. OSSEOUS STRUCTURES: No significant abnormalities. VISUALIZED UPPER ABDOMEN: Normal. OTHER FINDINGS: None. IMPRESSION: No active disease.
[2017-05-13 10:55] VITALS: RESP 20
[2017-05-13] MEDS ORDERED: Aluminum Hydroxide/Magnesium Hydroxide Susp (30 mL) PO STA (12:04)
--- NOTE | 2017-05-13 13:28 | VASCLAB ---
PROCEDURE: Lower Extremity Venous Duplex Exam. HISTORY: Pain, r/o DVT - d- dimer elevated PRIORS: None. TECHNIQUE: Bilateral common femoral, femoral, popliteal and posterior tibial, peroneal and great saphenous veins were evaluated. Flow was assessed with color Doppler, compressibility, assessment of phasic flow and augmentation response. Report prepared by Ashu Garcia, NAIF, RVT FINDINGS: RIGHT: 1. Common Femoral Vein: 1.1. Compressibility - Fully compressible: Thrombus - None : Flow - Phasic: Augmentation -Normal: Reflux - None. 2. Femoral Vein: 2.1. Compressibility - Fully compressible: Thrombus - None : Flow - Phasic: Augmentation -Normal: Reflux - None. 3. Popliteal Vein: 3.1. Compressibility - Fully compressible: Thrombus - None : Flow - Phasic: Augmentation -Normal: Reflux - None. 4. Posterior Tibial Vein: 4.1. Compressibility - Fully compressible: Thrombus - None: Flow - Phasic: Augmentation -Normal: Reflux - None. 5. Peroneal Vein: 5.1. Compressibility - Fully compressible: Thrombus - None: Flow - Phasic: Augmentation -Normal: Reflux - None. 6. Great Saphenous Vein: 6.1. Compressibility - Fully compressible: Thrombus - None: Flow - Phasic: Augmentation - Normal: Reflux - None. LEFT: 1. Common Femoral Vein: 1.1. Compressibility - Fully compressible: Thrombus - None: Flow - Phasic: Augmentation -Normal: Reflux - None. 2. Femoral Vein: 2.1. Compressibility - Fully compressible: Thrombus - None: Flow - Phasic: Augmentation -Normal: Reflux - None. 3. Popliteal Vein: 3.1. Compressibility - Fully compressible: Thrombus - None : Flow - Phasic: Augmentation -Normal: Reflux - None. 4. Posterior Tibial Vein: 4.1. Compressibility - Fully compressible: Thrombus - None: Flow - Phasic: Augmentation -Normal: Reflux - None. 5. Peroneal Vein: 5.1. Compressibility - Fully compressible: Thrombus - None: Flow - Phasic: Augmentation -Normal: Reflux - None. 6. Great Saphenous Vein: 6.1. Compressibility - Fully compressible: Thrombus - None: Flow - Phasic: Augmentation - Normal: Reflux - None. OTHER FINDINGS: Right: None significant. Left: None significant. IMPRESSION: Right: No evidence of deep or superficial vein thrombosis of the right lower extremity. Normal valve function noted of the right side. Left: No evidence of deep or superficial vein thrombosis of the left lower extremity. Normal valve function noted of the left side.
[2017-05-13 14:25] LABS: CK-MB 0.75 ng/mL (0.0-3.38)
--- NOTE | 2017-05-13 14:29 | CP.PCM.HP ---
Past Patient History - Infectious Disease Hx of Infectious Diseases: None - Tetanus Immunizations Tetanus Immunization: Unknown - Past Medical History & Family History Past Medical History?: Yes - Past Social History Smoking Status: Heavy Smoker > 10 Cigarettes Daily - CARDIAC Hx Hypertension: Yes - PULMONARY Hx Asthma: Yes Hx Bronchitis: Yes - NEUROLOGICAL HX Cerebrovascular Accident: No - HEMATOLOGICAL/ONCOLOGICAL Hx Hepatitis B: Yes - MUSCULOSKELETAL/RHEUMATOLOGICAL Hx Falls: No - GASTROINTESTINAL Hx Colitis: Yes - PSYCHIATRIC Hx Substance Use: No - SURGICAL HISTORY Hx Surgeries: Yes Hx Orthopedic Surgery: Yes (right ankle, left hip replacement, neck surgery) Other/Comment: right knee sx. 14 screws to left ankle. left hip replacement - ANESTHESIA Hx Anesthesia: Yes Meds Allergies/Adverse Reactions: Allergies Allergy/AdvReac Type Severity Reaction Status Date / Time No Known Allergies Allergy Verified 05/13/17 02:43 Physical Exam - Constitutional Appears: Well - Head Exam Head Exam: ATRAUMATIC, NORMAL INSPECTION, NORMOCEPHALIC - Eye Exam Eye Exam: EOMI, Normal appearance, PERRL Pupil Exam: NORMAL ACCOMODATION, PERRL - ENT Exam ENT Exam: Mucous Membranes Moist, Normal Exam - Neck Exam Neck exam: Positive for: Normal Inspection - Respiratory Exam Respiratory Exam: Decreased Breath Sounds - Cardiovascular Exam Cardiovascular Exam: REGULAR RHYTHM, +S1, +S2 - GI/Abdominal Exam GI & Abdominal Exam: Diminished Bowel Sounds, Soft - Rectal Exam Rectal Exam: Deferred Results - Vital Signs Recent Vital Signs: Last Vital Signs Temp 98.8 F 05/13/17 10:54 Pulse 70 05/13/17 10:54 Resp 20 05/13/17 10:54 BP 164/79 H 05/13/17 10:54 Pulse Ox 98 05/13/17 10:54 - Labs Result Diagrams: 05/13/17 04:01 05/13/17 04:47 Labs: Laboratory Results - last 24 hr 05/13/17 05/13/17 05/13/17 04:01 04:01 04:47 WBC 7.2 RBC 3.84 L Hgb 12.1 Hct 36.6 MCV 95.3 H MCH 31.6 H MCHC 33.1 RDW 16.2 H Plt Count 181 MPV 8.3 Neut % (Auto) 57.1 Lymph % (Auto) 27.4 Gonzales % (Auto) 10.4 H Eos % (Auto) 4.4 H Baso % (Auto) 0.7 Neut # (Auto) 4.1 Lymph # (Auto) 2.0 Gonzales # (Auto) 0.7 Eos # (Auto) 0.3 Baso # (Auto) 0.0 D-Dimer, Quantitative 865 H Sodium 142 Potassium 4.6 Chloride 110 H Carbon Dioxide 19 L Anion Gap 18 BUN 15 Creatinine 1.1 Est GFR ( Amer) > 60 Est GFR (Non-Af Amer) > 60 Random Glucose 84 Calcium 9.3 Total Bilirubin 0.9 AST 42 ALT 39 Alkaline Phosphatase 114 Total Creatine Kinase CK-MB (Mass) Troponin I < 0.0120 NT-Pro-B Natriuret Pep 126 Total Protein 8.3 Albumin 4.0 Globulin 4.3 H Albumin/Globulin Ratio 0.9 L 05/13/17 13:55 WBC RBC Hgb Hct MCV MCH MCHC RDW Plt Count MPV Neut % (Auto) Lymph % (Auto) Gonzales % (Auto) Eos % (Auto) Baso % (Auto) Neut # (Auto) Lymph # (Auto) Gonzales # (Auto) Eos # (Auto) Baso # (Auto) D-Dimer, Quantitative Sodium Potassium Chloride Carbon Dioxide Anion Gap BUN Creatinine Est GFR ( Amer) Est GFR (Non-Af Amer) Random Glucose Calcium Total Bilirubin AST ALT Alkaline Phosphatase Total Creatine Kinase 158 CK-MB (Mass) 0.75 Troponin I < 0.0120 NT-Pro-B Natriuret Pep Total Protein Albumin Globulin Albumin/Globulin Ratio
[2017-05-13] MEDS: Oxycodone/Acetaminophen 5/325 mg Tab PO PRN (17:16)
[2017-05-13 21:12] LABS: CK-MB 0.52 ng/mL (0.0-3.38)
--- NOTE | 2017-05-13 23:07 | CARD ---
APPROVED REPORT EXAM: Two-dimensional and M-mode echocardiogram with Doppler and color Doppler. Other Information Quality : LimitedRhythm : INDICATION Dyspnea Chest Pain LVF, HIV (+) RISK FACTORS Hypertension M-Mode DIMENSIONS RVDd2.03 (2.1-3.2cm)Left Atrium (MM)3.72 (2.5-4.0cm) IVSd1.18 (0.7-1.1cm)Aortic Root3.25 (2.2-3.7cm) LVDd5.09 (4.0-5.6cm)Aortic Cusp Exc.2.14 (1.5-2.0cm) PWd1.22 (0.7-1.1cm)FS (%) 49 % LVDs2.62 (2.0-3.8cm)LVEF (%)80 (>50%) Mitral Valve MV E Sjkcrsju32.4cm/sMV A Uyhiuhqi77.5cm/sE/A ratio0.7 TDI E/Lateral E'0.0E/Medial E'0.0 Tricuspid Valve TR Peak Wuofmpow593sr/sTR Peak Gr.[id number] LEFT VENTRICLE The left ventricle is normal size. There is normal left ventricular wall thickness. Left ventricle systolic function is normal. The Ejection Fraction is 65-70%. There is normal LV segmental wall motion. Transmitral Doppler flow pattern is Grade I-abnormal relaxation pattern. There is no ventricular septal defect visualized. RIGHT VENTRICLE The right ventricle is normal size. The right ventricular systolic function is normal. ATRIA The left atrium is borderline dilated. The right atrium size is normal. AORTIC VALVE The aortic valve is mildly sclerotic. The aortic valve is tri-cuspid. No aortic regurgitation is present. There is no aortic valvular stenosis. MITRAL VALVE The mitral valve is normal in structure. There is no evidence of mitral valve prolapse. There is no mitral valve regurgitation noted. TRICUSPID VALVE The tricuspid valve is normal in structure. There is trace tricuspid regurgitation. Right ventricular systolic pressure is estimated at less than 30 mmHg. There is no pulmonary hypertension. PULMONIC VALVE The pulmonic valve is not well visualized. There is no pulmonic valvular regurgitation. GREAT VESSELS The aortic root is normal in size. The IVC is normal in size and collapses >50% with inspiration. PERICARDIAL EFFUSION There is no pericardial effusion. <Conclusion> Left ventricle systolic function is normal. The Ejection Fraction is 65-70%. Transmitral Doppler flow pattern is Grade I-abnormal relaxation pattern.
[2017-05-14] MEDS: Oxycodone/Acetaminophen 5/325 mg Tab PO PRN ×3 (01:16→19:17)
--- NOTE | 2017-05-14 06:53 | CP.PCM.CON ---
History of Present Illness - History of Present Illness History of Present Illness: Patient seen and evaluated Admitted for chest pain DERREK x 2 negative For stress test in am Past Patient History - Infectious Disease Hx of Infectious Diseases: None - Tetanus Immunizations Tetanus Immunization: Unknown - Past Medical History & Family History Past Medical History?: Yes - Past Social History Smoking Status: Heavy Smoker > 10 Cigarettes Daily - CARDIAC Hx Hypertension: Yes - PULMONARY Hx Asthma: Yes Hx Bronchitis: Yes - NEUROLOGICAL HX Cerebrovascular Accident: No - HEMATOLOGICAL/ONCOLOGICAL Hx Hepatitis B: Yes - MUSCULOSKELETAL/RHEUMATOLOGICAL Hx Falls: No - GASTROINTESTINAL Hx Colitis: Yes - PSYCHIATRIC Hx Substance Use: No - SURGICAL HISTORY Hx Surgeries: Yes Hx Orthopedic Surgery: Yes (right ankle, left hip replacement, neck surgery) Other/Comment: right knee sx. 14 screws to left ankle. left hip replacement - ANESTHESIA Hx Anesthesia: Yes Meds Allergies/Adverse Reactions: Allergies Allergy/AdvReac Type Severity Reaction Status Date / Time No Known Allergies Allergy Verified 05/13/17 02:43 - Medications Medications: Current Medications Acetaminophen (Tylenol 325mg Tab) 650 mg PO Q6 PRN PRN Reason: Pain, moderate (4-7) Amlodipine Besylate (Norvasc) 10 mg PO DAILY [facility] Last Admin: 05/13/17 12:14 Dose: 10 mg Aspirin (Aspirin) 325 mg PO DAILY [facility] Heparin Sodium (Porcine) (Heparin) 5,000 units SC Q8 [facility] Last Admin: 05/14/17 05:48 Dose: 5,000 units Oxycodone/Acetaminophen (Percocet 5/325 Mg Tab) 1 tab PO Q8 PRN PRN Reason: Pain, severe (8-10) Stop: 05/16/17 22:01 Last Admin: 05/14/17 01:16 Dose: 1 tab Pantoprazole Sodium (Protonix Ec Tab) 40 mg PO DAILY [facility] Pregabalin (Lyrica) 75 mg PO BID [facility] Last Admin: 05/13/17 17:16 Dose: 75 mg Rosuvastatin Calcium (Crestor) 5 mg PO HS [facility] Last Admin: 05/13/17 21:43 Dose: 5 mg Zolpidem Tartrate (Ambien) 5 mg PO HS PRN PRN Reason: Insomnia Last Admin: 05/13/17 21:43 Dose: 5 mg Results - Vital Signs Recent Vital Signs: Last Vital Signs Temp 98.5 F 05/14/17 05:46 Pulse 72 05/14/17 05:46 Resp 20 05/14/17 05:46 BP 103/71 05/14/17 05:46 Pulse Ox 97 05/14/17 05:46 - Labs Result Diagrams: 05/13/17 04:01 05/13/17 04:47 Labs: Laboratory Results - last 24 hr 05/13/17 05/13/17 13:55 20:46 Total Creatine Kinase 158 137 CK-MB (Mass) 0.75 0.52 Troponin I < 0.0120 < 0.0120
[2017-05-14 08:24] LABS: HDL CHOLESTEROL 44 mg/dL (30-70)
[2017-05-14 08:35] LABS: LDL CHOLESTEROL 106 mg/dL (0-129)
--- NOTE | 2017-05-14 10:16 | CP.PCM.PN ---
Subjective - Date & Time of Evaluation Date of Evaluation: 05/14/17 Time of Evaluation: 10:16 - Subjective Subjective: Progress note for Dr. Hinojosa's Service Pt seen and examined at bedside. He states that he continued to have chest pain overnight last night and localizes this to the left side of the chest about 1-2 inches below the nipple line, ranging from axillary to midline. He states that this pain has not been present today. + SOB with chest pain. He had a stress test this morning. No acute events. Objective - Vital Signs/Intake and Output Vital Signs (last 24 hours): Temp Pulse Resp BP Pulse Ox 98.7 F 69 20 125/73 98 05/14/17 07:30 05/14/17 07:30 05/14/17 07:30 05/14/17 07:30 05/14/17 07:30 - Medications Medications: Current Medications Acetaminophen (Tylenol 325mg Tab) 650 mg PO Q6 PRN PRN Reason: Pain, moderate (4-7) Amlodipine Besylate (Norvasc) 10 mg PO DAILY [facility] Last Admin: 05/13/17 12:14 Dose: 10 mg Aspirin (Aspirin) 325 mg PO DAILY [facility] Heparin Sodium (Porcine) (Heparin) 5,000 units SC Q8 [facility] Last Admin: 05/14/17 05:48 Dose: 5,000 units Oxycodone/Acetaminophen (Percocet 5/325 Mg Tab) 1 tab PO Q8 PRN PRN Reason: Pain, severe (8-10) Stop: 05/16/17 22:01 Last Admin: 05/14/17 01:16 Dose: 1 tab Pantoprazole Sodium (Protonix Ec Tab) 40 mg PO DAILY [facility] Pregabalin (Lyrica) 75 mg PO BID [facility] Last Admin: 05/13/17 17:16 Dose: 75 mg Rosuvastatin Calcium (Crestor) 5 mg PO HS [facility] Last Admin: 05/13/17 21:43 Dose: 5 mg Zolpidem Tartrate (Ambien) 5 mg PO HS PRN PRN Reason: Insomnia Last Admin: 05/13/17 21:43 Dose: 5 mg - Labs Labs: 05/13/17 04:01 05/13/17 04:47 - Constitutional Appears: No Acute Distress - Head Exam Head Exam: ATRAUMATIC, NORMOCEPHALIC - Eye Exam Eye Exam: EOMI - ENT Exam ENT Exam: Mucous Membranes Moist - Respiratory Exam Respiratory Exam: Clear to Ausculation Bilateral, NORMAL BREATHING PATTERN - Cardiovascular Exam Cardiovascular Exam: REGULAR RHYTHM, +S1, +S2 - GI/Abdominal Exam GI & Abdominal Exam: Soft. absent: Tenderness - Extremities Exam Extremities Exam: absent: Pedal Edema - Neurological Exam Neurological Exam: Alert, Awake, Oriented x3 - Psychiatric Exam Psychiatric exam: Normal Affect, Normal Mood - Skin Skin Exam: Dry, Warm Assessment and Plan - Assessment and Plan (Free Text) Plan: Chest Pain Cardio consult placed to Dr. Daphne jenkins appreciated DERREK negative x3 CXR negative EKG 05/13/17 - Sinus rhythm with premature atrial complexes Echo 05/13/17- EF 65-70% with grade I abnormal relaxation pattern Stress test completed- follow up results crestor 5mg PO daily norvasc 10mg PO daily D-dimer elevated - 865 LE US negative for DVT Chest CT negative ASA 325mg PO daily Percocet 5/325mg 1T PO q8hrs prn severe pain HTN Amlodipine 10mg PO daily crestor 5mg PO daily HIV Documented history on previous admissions but no labs Follow up hiv ab; CD4/CD8 ID consult placed to Dr. Ming jenkins appreciated Hep C Documented hx of hep C s/p treatment Hep C ab reactive on labs 11/2013 As per pt condition is resolved ID consult placed to Dr. Ming jenkins appreciated Insomnia Ambien 5mg PO qhs prn Prophylaxis Heparin 5k sc q8hrs protonix 40mg PO daily Case Discussed with Dr. Hinojosa All management as per Dr. Hinojosa
[2017-05-14] MEDS: Pantoprazole 40 mg EC Tab PO SCH (10:36)
--- NOTE | 2017-05-14 11:18 | CP.PCM.PN ---
Addendum entered and electronically signed by Zeeshan Schuler DO 05/14/17 16:27: Stress test 05/14/17- Normal cardiac stress test; see full report. Stable from Cardiac Standpoint. Original Note: <Zeeshan Schuler - Last Filed: 05/14/17 11:13> Subjective - Date & Time of Evaluation Date of Evaluation: 05/14/17 Time of Evaluation: 09:00 - Subjective Subjective: PGY2 Cardiology Progress Note for Dr. Mata Patient seen and examined at bedside. No acute distress. Patient denies chest pain, SOB, or LE edema. Patient is scheduled for stress test. 12-point review of systems is otherwise negative without any additional acute complaints. Objective - Vital Signs/Intake and Output Vital Signs (last 24 hours): Temp Pulse Resp BP Pulse Ox 98.7 F 69 20 125/73 98 05/14/17 07:30 05/14/17 07:30 05/14/17 07:30 05/14/17 07:30 05/14/17 07:30 - Medications Medications: Current Medications Acetaminophen (Tylenol 325mg Tab) 650 mg PO Q6 PRN PRN Reason: Pain, moderate (4-7) Amlodipine Besylate (Norvasc) 10 mg PO DAILY [facility] Last Admin: 05/14/17 10:36 Dose: 10 mg Aspirin (Aspirin) 325 mg PO DAILY [facility] Last Admin: 05/14/17 10:36 Dose: 325 mg Heparin Sodium (Porcine) (Heparin) 5,000 units SC Q8 [facility] Last Admin: 05/14/17 05:48 Dose: 5,000 units Oxycodone/Acetaminophen (Percocet 5/325 Mg Tab) 1 tab PO Q8 PRN PRN Reason: Pain, severe (8-10) Stop: 05/16/17 22:01 Last Admin: 05/14/17 10:40 Dose: 1 tab Pantoprazole Sodium (Protonix Ec Tab) 40 mg PO DAILY [facility] Last Admin: 05/14/17 10:36 Dose: 40 mg Pregabalin (Lyrica) 75 mg PO BID [facility] Last Admin: 05/14/17 10:36 Dose: 75 mg Rosuvastatin Calcium (Crestor) 5 mg PO HS [facility] Last Admin: 05/13/17 21:43 Dose: 5 mg Zolpidem Tartrate (Ambien) 5 mg PO HS PRN PRN Reason: Insomnia Last Admin: 05/13/17 21:43 Dose: 5 mg - Labs Labs: 05/13/17 04:01 05/13/17 04:47 - Constitutional Appears: Non-toxic, No Acute Distress - Head Exam Head Exam: ATRAUMATIC, NORMAL INSPECTION - Eye Exam Eye Exam: EOMI, Normal appearance - ENT Exam ENT Exam: Mucous Membranes Moist - Respiratory Exam Respiratory Exam: Clear to Ausculation Bilateral, NORMAL BREATHING PATTERN. absent: Wheezes - Cardiovascular Exam Cardiovascular Exam: REGULAR RHYTHM, +S1, +S2. absent: JVD, Murmur - GI/Abdominal Exam GI & Abdominal Exam: Soft, Normal Bowel Sounds. absent: Tenderness - Extremities Exam Extremities Exam: Normal Capillary Refill. absent: Pedal Edema, Tenderness - Back Exam Back Exam: NORMAL INSPECTION. absent: CVA tenderness (L), CVA tenderness (R) - Neurological Exam Neurological Exam: Alert, Awake, Oriented x3 - Psychiatric Exam Psychiatric exam: Normal Affect, Normal Mood Assessment and Plan - Assessment and Plan (Free Text) Assessment: Chest Pain f/u stress test results (test scheduled) DERREK negative x3 EKG 05/13/17 - Sinus rhythm with premature atrial complexes Echo 05/13/17- EF 65-70% with grade I abnormal relaxation pattern Ddimer elevated - 865 LE US negative for DVT Chest CT negative CXR negative Continue crestor 5, norvasc [address] Adolfo Schuler, PGY2 <Fan Mata - Last Filed: 05/14/17 22:54> Objective - Vital Signs/Intake and Output Vital Signs (last 24 hours): Temp Pulse Resp BP Pulse Ox 98 F 87 20 107/61 98 05/14/17 15:00 05/14/17 16:00 05/14/17 15:00 05/14/17 15:00 05/14/17 15:00 Intake and Output: 05/14/17 05/15/17 18:59 06:59 Intake Total 480 Balance 480 - Medications Medications: Current Medications Acetaminophen (Tylenol 325mg Tab) 650 mg PO Q6 PRN PRN Reason: Pain, moderate (4-7) Last Admin: 05/14/17 15:47 Dose: 650 mg Amlodipine Besylate (Norvasc) 10 mg PO DAILY [facility] Last Admin: 03/27/18 10:36 Dose: 10 mg Aspirin (Aspirin) 325 mg PO DAILY [facility] Last Admin: 05/14/17 10:36 Dose: 325 mg Heparin Sodium (Porcine) (Heparin) 5,000 units SC Q8 [facility] Last Admin: 05/14/17 21:53 Dose: 5,000 units Oxycodone/Acetaminophen (Percocet 5/325 Mg Tab) 1 tab PO Q8 PRN PRN Reason: Pain, severe (8-10) Stop: 05/16/17 22:01 Last Admin: 05/14/17 19:17 Dose: 1 tab Pantoprazole Sodium (Protonix Ec Tab) 40 mg PO DAILY [facility] Last Admin: 05/14/17 10:36 Dose: 40 mg Pregabalin (Lyrica) 75 mg PO BID [facility] Last Admin: 05/14/17 17:17 Dose: 75 mg Rosuvastatin Calcium (Crestor) 5 mg PO HS [facility] Last Admin: 05/14/17 21:53 Dose: 5 mg Zolpidem Tartrate (Ambien) 5 mg PO HS PRN PRN Reason: Insomnia Last Admin: 05/14/17 21:54 Dose: 5 mg - Labs Labs: 05/13/17 04:01 05/13/17 04:47 Assessment and Plan - Assessment and Plan (Free Text) Plan: Patient seen and evaluated Normal stress test and EF No further cardiac work up needed at this time
--- NOTE | 2017-05-14 16:09 | CP.PCM.PN ---
Subjective - Date & Time of Evaluation Date of Evaluation: 05/14/17 Time of Evaluation: 12:00 - Subjective Subjective: clinically same Objective - Vital Signs/Intake and Output Vital Signs (last 24 hours): Temp Pulse Resp BP Pulse Ox 98 F 80 20 107/61 98 05/14/17 15:00 05/14/17 15:00 05/14/17 15:00 05/14/17 15:00 05/14/17 15:00 Intake and Output: 05/14/17 05/14/17 06:59 18:59 Intake Total 480 Balance 480 - Medications Medications: Current Medications Acetaminophen (Tylenol 325mg Tab) 650 mg PO Q6 PRN PRN Reason: Pain, moderate (4-7) Last Admin: 05/14/17 15:47 Dose: 650 mg Amlodipine Besylate (Norvasc) 10 mg PO DAILY [facility] Last Admin: 05/14/17 10:36 Dose: 10 mg Aspirin (Aspirin) 325 mg PO DAILY [facility] Last Admin: 05/14/17 10:36 Dose: 325 mg Heparin Sodium (Porcine) (Heparin) 5,000 units SC Q8 [facility] Last Admin: 05/14/17 13:17 Dose: 5,000 units Oxycodone/Acetaminophen (Percocet 5/325 Mg Tab) 1 tab PO Q8 PRN PRN Reason: Pain, severe (8-10) Stop: 05/16/17 22:01 Last Admin: 05/14/17 10:40 Dose: 1 tab Pantoprazole Sodium (Protonix Ec Tab) 40 mg PO DAILY [facility] Last Admin: 05/14/17 10:36 Dose: 40 mg Pregabalin (Lyrica) 75 mg PO BID [facility] Last Admin: 05/14/17 10:36 Dose: 75 mg Rosuvastatin Calcium (Crestor) 5 mg PO HS [facility] Last Admin: 05/13/17 21:43 Dose: 5 mg Zolpidem Tartrate (Ambien) 5 mg PO HS PRN PRN Reason: Insomnia Last Admin: 05/13/17 21:43 Dose: 5 mg - Labs Labs: 05/13/17 04:01 05/13/17 04:47 - Constitutional Appears: Well - Head Exam Head Exam: ATRAUMATIC, NORMAL INSPECTION, NORMOCEPHALIC - Eye Exam Eye Exam: EOMI, Normal appearance, PERRL Pupil Exam: NORMAL ACCOMODATION, PERRL - ENT Exam ENT Exam: Mucous Membranes Moist, Normal Exam - Neck Exam Neck Exam: Full ROM, Normal Inspection. absent: Lymphadenopathy - Respiratory Exam Respiratory Exam: Decreased Breath Sounds - Cardiovascular Exam Cardiovascular Exam: REGULAR RHYTHM, +S1, +S2 - GI/Abdominal Exam GI & Abdominal Exam: Soft, Diminished Bowel Sounds - Rectal Exam Rectal Exam: Deferred
[2017-05-15] MEDS: Oxycodone/Acetaminophen 5/325 mg Tab PO PRN ×2 (05:25→13:46)
--- NOTE | 2017-05-15 07:42 | CARD ---
APPROVED REPORT Protocol: PHARMACOLOGICAL STRESS Test Type: LEXISCAN Test Indications: CHEST PAIN Medications: LIST SCAN Medical History: CHEST PAIN Target HR: 156 bpm Resting ECG: NSR Resting Heart Rate: 81 bpm Resting Blood Pressure: 120/60mmHg submaximum (85%): 133 bpm TEST SUMMARY [id number]/60.0. INFUSIONDOSE 100:[id number]/60.0. [id number]/60.1. PROCEDURE Pharmacologic stress testing was performed using 0.4mg per 5ml of regadenoson given intravenously over 7-10 seconds. Reversal agent aminophyline 125 mg, given intravenously for Chest Pain. POST EXERCISE Reason for Termination: Protocol Completed Target HR: No Max HR: 86 bpm 83% of Maximum Predicted HR: 156 bpm Exercise duration: 00:30 min:sec, 0 Stage Exercise capacity: 1.0METs Max Blood Pressure: 150/60mmHg Blood Pressure response to exercise: normal resting BP - appropriate response Heart Rate response to exercise: appropriate Chest Pain: No, none Angina index: 0 Arrhythmia: No, none ST Change: No, none Deviation: 0 mm INTERPRETATION Stress EKG Conclusion: NEGATIVE LEXISCAN STRESS TEST VPB'S NORMAL BP RESPONSE TO LEXISCAN NUCLEAR STUDIES TO BE READ SEPARATELY EXAM: Myocardial Perfusion STRESS/REST Imaging Protocol The imaging protocol used to acquire images was Stress Tc-99m/rest Tc-99m 1 day Rest Spect myocardial perfusion imaging was performed in supine position 45 minutes following the injection of 32.6 mCi of Tc-99 Myoview. Gated Stress Spect was performed 45 minutes after intravenous 13.1 mCi Tc-99 Myoview injection. The images were gated to evaluate regional wall motion and calculate ventricular ejection fraction.Images were reconstructed using backfilter projection method in short horizontal and verticle long axis. Spect slices were generated. RESTING DATA EDV43.72xjUK3.30L/min ESV10.00mlMyocardial Mass87.00g Av. Heart Rate70.00bpm EF77.00% STRESS DATA EDV51.53wtDM4.40L/min ESV13.00mlMyocardial Mass94.00g EF75.00% Regional WT score at stress:2.00 Regional WM score at stress:0.00 Summed WT score at stress:21.00 Av. Heart Rate87.00bpmSummed WM score at stress:0.00 LV Perf. Quant 17 Seg. SSS0.00 17 Seg. SRS0.00 17 Seg. SDS0.00 Stress Defect Extent (% LAD)0.00Rest Defect Extent (% LAD)0.00Rev. Defect Extent (% LAD)0.00 Stress Defect Extent (% LCX)10.00Rest Defect Extent (% LCX)7.50Rev. Defect Extent (% LCX)8.80 Stress Defect Extent (% RCA)0.00Rest Defect Extent (% RCA)0.00Rev. Defect Extent (% RCA)0.00 Stress Defect Extent (% OTILIA)1.70Rest Defect Extent (% OTILIA)1.30Rev. Defect Extent (% OTILIA)1.50 IMPRESSION Normal Myocardial Perfusion exercise stress study Left Ventricle LV Size/Shape: The left ventricle is normal size. LV Function:Left ventricle systolic function is normal. The Ejection Fraction is >70%. Regional Wall Motion:There is normal left ventricular wall motion. Metabolism/Perfusion Defects: There is no scan evidence of reversible ischemia noted. There are no perfusion/metabolism defects. Conclusion 1. There is no scan evidence of reversible ischemia noted. 2. Left ventricle systolic function is normal. 3. The Ejection Fraction is >70%.
[2017-05-15 08:13] LABS: BASO % 0.6 % (0.0-2.0); EOS # 0.3 K/uL (0.0-0.7); EOS % 4.3 % (0.0-4.0); HEMOGLOBIN 12.2 g/dL (12.0-18.0); LYMPH # 1.8 K/uL (1.0-4.3); LYMPH % 29.7 % (20.0-40.0); MEAN CELL VOLUME 94.5 fL (80.0-94.0); MEAN CORPUSCULAR HEMOGLOBIN 31.9 pg (27.0-31.0); MEAN CORPUSCULAR HGB CONC 33.8 g/dL (33.0-37.0); MEAN PLATELET VOLUME 8.6 fL (7.2-11.7); MONO # 0.7 K/uL (0.0-0.8); MONO % 11.9 % (0.0-10.0); NEUT # 3.2 K/uL (1.8-7.0); NEUT % 53.5 % (50.0-75.0); NRBC % 0.1 % (0.0-2.0); RBC 3.82 Mil/uL (4.40-5.90); RED CELL DISTRIBUTION WIDTH 15.6 % (11.5-14.5)
[2017-05-15 08:26] VITALS: BP 106/68; PULSE 76; TEMP 98; O2SAT 97
[2017-05-15 08:51] LABS: ALB/GLOB RATIO 0.9 (1.0-2.1); ALBUMIN 3.7 g/dL (3.5-5.0); ALT/SGPT 27 U/L (21-72); AST/SGOT 31 U/L (17-59); BLOOD UREA NITROGEN 16 mg/dL (9-20); CALCIUM 9.3 mg/dl (8.6-10.4); GFR AFRICAN-AMERICAN > 60; GFR NON-AFRICAN AMERICAN 51
[2017-05-15] MEDS: Pantoprazole 40 mg EC Tab PO SCH (09:28)
--- NOTE | 2017-05-15 10:11 | CP.PCM.PN ---
Subjective - Date & Time of Evaluation Date of Evaluation: 05/15/17 Time of Evaluation: 10:04 - Subjective Subjective: Progress note for Dr. Hinojosa's Service Pt seen and examined at bedside. He states that he is feeling better and relieved to hear that his heart is doing well. No acute complaints. No chest pain currently. He has been off of HIV meds for days now. Awaiting evaluation by Dr. Talbert. Objective - Vital Signs/Intake and Output Vital Signs (last 24 hours): Temp Pulse Resp BP Pulse Ox 98.0 F 76 20 106/68 97 05/15/17 08:23 05/15/17 08:23 05/15/17 08:23 05/15/17 08:23 05/15/17 08:23 - Medications Medications: Current Medications Acetaminophen (Tylenol 325mg Tab) 650 mg PO Q6 PRN PRN Reason: Pain, moderate (4-7) Last Admin: 05/14/17 15:47 Dose: 650 mg Amlodipine Besylate (Norvasc) 10 mg PO DAILY [facility] Last Admin: 05/15/17 09:28 Dose: 10 mg Aspirin (Aspirin) 325 mg PO DAILY [facility] Last Admin: 05/15/17 09:28 Dose: 325 mg Heparin Sodium (Porcine) (Heparin) 5,000 units SC Q8 [facility] Last Admin: 05/15/17 05:26 Dose: 5,000 units Oxycodone/Acetaminophen (Percocet 5/325 Mg Tab) 1 tab PO Q8 PRN PRN Reason: Pain, severe (8-10) Stop: 05/16/17 22:01 Last Admin: 05/15/17 05:25 Dose: 1 tab Pantoprazole Sodium (Protonix Ec Tab) 40 mg PO DAILY [facility] Last Admin: 05/15/17 09:28 Dose: 40 mg Pregabalin (Lyrica) 75 mg PO BID [facility] Last Admin: 05/15/17 09:28 Dose: 75 mg Rosuvastatin Calcium (Crestor) 5 mg PO HS [facility] Last Admin: 05/14/17 21:53 Dose: 5 mg Zolpidem Tartrate (Ambien) 5 mg PO HS PRN PRN Reason: Insomnia Last Admin: 05/14/17 21:54 Dose: 5 mg - Labs Labs: 05/15/17 08:02 05/15/17 08:02 - Constitutional Appears: No Acute Distress - Head Exam Head Exam: ATRAUMATIC - Eye Exam Eye Exam: EOMI, Normal appearance - ENT Exam ENT Exam: Mucous Membranes Moist - Respiratory Exam Respiratory Exam: Clear to Ausculation Bilateral - Cardiovascular Exam Cardiovascular Exam: REGULAR RHYTHM, +S1, +S2 - GI/Abdominal Exam GI & Abdominal Exam: Soft. absent: Tenderness - Extremities Exam Extremities Exam: absent: Pedal Edema - Neurological Exam Neurological Exam: Alert, Awake, Oriented x3 - Psychiatric Exam Psychiatric exam: Normal Affect, Normal Mood - Skin Skin Exam: Dry, Warm Assessment and Plan - Assessment and Plan (Free Text) Plan: Chest Pain Cardio consult placed to Dr. Daphne jenkins appreciated DERREK negative x3 CXR negative EKG 05/13/17 - Sinus rhythm with premature atrial complexes Echo 05/13/17- EF 65-70% with grade I abnormal relaxation pattern Stress test completed 05/14- normal with EF >70% crestor 5mg PO daily norvasc 10mg PO daily Stable from cardiac standpoint D-dimer elevated - 865 LE US negative for DVT Chest CT negative Lipid panel: Total cholesterol 183 Triglycerides 65 LDL 106 HDL 44 ASA 325mg PO daily Percocet 5/325mg 1T PO q8hrs prn severe pain HTN Amlodipine 10mg PO daily crestor 5mg PO daily HIV Documented history on previous admissions but no labs Follow up hiv ab; CD4/CD8 ID consult placed to Dr. Ming jenkins appreciated Hep C Documented hx of hep C s/p treatment Hep C ab reactive on labs 11/2013 As per pt condition is resolved ID consult placed to Dr. Ming jenkins appreciated Insomnia Ambien 5mg PO qhs prn Hx of neuralgia/chronic pain Continue Lyrica 75mg PO BID Prophylaxis Heparin 5k sc q8hrs protonix 40mg PO daily We will follow up recs from Dr. Talbert and prepare for discharge accordingly. Pt states that his PMD is Dr. Tapia and he sees a clinic in [place] for his HIV meds. He will follow up with these physicians upon d/c. Case Discussed with Dr. Hinojosa All management as per Dr. Hinojosa
--- NOTE | 2017-05-15 14:33 | CP.PCM.CON ---
History of Present Illness - History of Present Illness History of Present Illness: 66 yo male referred for ID eval Hx of HIV and Hep C denies current mediucations 'last CD4 670 in june 2016 will review old records and update t cells Review of Systems - Review of Systems All systems: reviewed and no additional remarkable complaints except - Constitutional Constitutional: absent: As Per HPI, Anorexia, Chills, Daytime Sleepiness, Excessive Sweating, Fatigue, Fever, Frequent Falls, Headache, Increased Appetite , Lethargy, Malaise, Night Sweats, Snoring, Sleep Apnea, Weight Gain, Weight Loss, Weakness, Other - EENT Eyes: As Per HPI Ears: As Per HPI Nose/Mouth/Throat: As Per HPI. absent: Epistaxis, Nasal Congestion, Nasal Discharge, Nasal Obstruction, Nasal Trauma, Nose Pain, Post Nasal Drip, Sinus Pain, Sinus Pressure, Bleeding Gums, Change in Voice, Dental Pain, Dry Mouth, Dysphagia, Halitosis, Hoarsness, Lip Swelling, Mouth Lesions, Mouth Pain, Odynophagia, Sore Throat, Throat Swelling, Tongue Swelling, Facial Pain, Neck Pain, Neck Mass, Other - Cardiovascular Cardiovascular: absent: As Per HPI, Acrocyanosis, Chest Pain, Chest Pain at Rest , Chest Pain with Activity, Claudication, Diaphoresis, Dyspnea, Dyspnea on Exertion, Edema, Irregular Heart Rhythm, Pain Radiating to Arm/Neck/Jaw, Leg Edema, Leg Ulcers, Lightheadedness, Orthopnea, Palpitations, Paroxysmal Nocturnal Dyspnea, Pedal Edema, Radiating Pain, Rapid Heart Rate, Slow Heart Rate, Syncope, Other - Respiratory Respiratory: absent: As Per HPI, Cough, Dyspnea, Hemoptysis, Dyspnea on Exertion , Wheezing, Snoring, Stridor, Pain on Inspiration, Chest Congestion, Excessive Mucous Production, Change in Mucous Color, Pain with Coughing, Other - Gastrointestinal Gastrointestinal: absent: As Per HPI, Abdominal Pain, Belching, Bloating, Change in Bowel Habits, Change in Stool Character, Coffee Ground Emesis, Constipation, Cramping, Diarrhea, Dyspepsia, Dysphagia, Early Satiety, Excessive Flatus, Fecal Incontinence, Heartburn, Hematemesis, Hematochezia, Loose Stools, Melena, Nausea, Odynophagia, Temesmus, Vomiting, Other - Genitourinary Genitourinary: absent: As Per HPI, Change in Urinary Stream, Difficulty Urinating, Dysuria, Flank Pain, Hematuria, Pyuria, Nocturia, Urinary Incontinence, Urinary Frequency, Urinary Hesitance, Urinary Urgency, Voiding Freq/Small Amts, Freq UTI, Hx Renal/Bladder Calculi, Hx /Renal Surgery, Bladder Distension, Other - Musculoskeletal Musculoskeletal: absent: As Per HPI, Abnormal Gait, Arthralgias, Atrophy, Back Pain, Deformity, Joint Swelling, Limited Range of Motion, Loss of Height, Muscle Cramps, Muscle Weakness, Myalgias, Neck Pain, Numbness, Radiating Pain into Limb, Stiffness, Tingling, Other - Integumentary Integumentary: absent: As Per HPI, Acne, Alopecia, Bleeding Lesions, Change in Hair, Change in Nails, Change in Pigmentation, Changing Lesions, Dry Skin, Erythema, Furuncle, Hirsutism, Lesions, New Lesions, Non-Healing Lesions, Photosensitivity, Pruritus, Rash, Skin Pain, Skin Ulcer, Sores, Striae, Swelling , Unusual Bruising, Wounds, Jaundice, Other - Neurological Neurological: absent: As Per HPI, Abnormal Gait, Abnormal Hearing, Abnormal Movements, Abnormal Speech, Behavioral Changes, Burning Sensations, Confusion, Convulsions, Disequilibrium, Dizziness, Numbness, Focal Weakness, Frequent Falls , Headaches, Lack of Coordination, Loss of Vision, Memory Loss, Paresthesias, Radicular Pain, Restless Legs, Sensory Deficit, Syncope, Tingling, Tremor, Vertigo, Weakness, Other Visual Disturbances, Other - Psychiatric Psychiatric: absent: As Per HPI, Abnormal Sleep Pattern, Anhedonia, Anxiety, Auditory Hallucinations, Behavioral Changes, Change in Appetite, Change in Libido, Confusion, Depression, Difficulty Concentrating, Hallucinations, Homicidal Ideation, Hopelessness, Irritability, Memory Loss, Mood Swings, Panic Attacks, Paranoia, Suicidal Ideation, Visual Hallucinations, Tactile Hallucinations, Other Past Patient History - Infectious Disease Hx of Infectious Diseases: None - Tetanus Immunizations Tetanus Immunization: Unknown - Past Medical History & Family History Past Medical History?: Yes - Past Social History Smoking Status: Heavy Smoker > 10 Cigarettes Daily - CARDIAC Hx Hypertension: Yes - PULMONARY Hx Asthma: Yes Hx Bronchitis: Yes - NEUROLOGICAL HX Cerebrovascular Accident: No - HEMATOLOGICAL/ONCOLOGICAL Hx Hepatitis B: Yes - MUSCULOSKELETAL/RHEUMATOLOGICAL Hx Falls: No - GASTROINTESTINAL Hx Colitis: Yes - PSYCHIATRIC Hx Substance Use: No - SURGICAL HISTORY Hx Surgeries: Yes Hx Orthopedic Surgery: Yes (right ankle, left hip replacement, neck surgery) Other/Comment: right knee sx. 14 screws to left ankle. left hip replacement - ANESTHESIA Hx Anesthesia: Yes Meds Allergies/Adverse Reactions: Allergies Allergy/AdvReac Type Severity Reaction Status Date / Time No Known Allergies Allergy Verified 05/13/17 02:43 - Medications Medications: Current Medications Acetaminophen (Tylenol 325mg Tab) 650 mg PO Q6 PRN PRN Reason: Pain, moderate (4-7) Last Admin: 05/14/17 15:47 Dose: 650 mg Amlodipine Besylate (Norvasc) 10 mg PO DAILY [facility] Last Admin: 05/15/17 09:28 Dose: 10 mg Aspirin (Aspirin) 325 mg PO DAILY [facility] Last Admin: 05/15/17 09:28 Dose: 325 mg Heparin Sodium (Porcine) (Heparin) 5,000 units SC Q8 [facility] Last Admin: 05/15/17 14:23 Dose: 5,000 units Oxycodone/Acetaminophen (Percocet 5/325 Mg Tab) 1 tab PO Q8 PRN PRN Reason: Pain, severe (8-10) Stop: 05/16/17 22:01 Last Admin: 05/15/17 13:46 Dose: 1 tab Pantoprazole Sodium (Protonix Ec Tab) 40 mg PO DAILY [facility] Last Admin: 05/15/17 09:28 Dose: 40 mg Pregabalin (Lyrica) 75 mg PO BID [facility] Last Admin: 05/15/17 09:28 Dose: 75 mg Rosuvastatin Calcium (Crestor) 5 mg PO HS [facility] Last Admin: 05/14/17 21:53 Dose: 5 mg Zolpidem Tartrate (Ambien) 5 mg PO HS PRN PRN Reason: Insomnia Last Admin: 05/14/17 21:54 Dose: 5 mg Physical Exam - Constitutional Appears: Non-toxic - Head Exam Head Exam: ATRAUMATIC, NORMOCEPHALIC - Eye Exam Eye Exam: EOMI, PERRL. absent: Scleral icterus - ENT Exam ENT Exam: Mucous Membranes Dry - Neck Exam Neck exam: Negative for: Lymphadenopathy - Respiratory Exam Respiratory Exam: Decreased Breath Sounds - Cardiovascular Exam Cardiovascular Exam: REGULAR RHYTHM - GI/Abdominal Exam GI & Abdominal Exam: Diminished Bowel Sounds, Soft. absent: Tenderness - Rectal Exam Rectal Exam: Deferred - Exam Exam: NORMAL INSPECTION - Extremities Exam Extremities exam: Negative for: pedal edema - Back Exam Back exam: absent: CVA tenderness (L), CVA tenderness (R) - Neurological Exam Neurological exam: Alert, CN II-XII Intact, Oriented x3, Reflexes Normal Results - Vital Signs Recent Vital Signs: Last Vital Signs Temp 98.0 F 05/15/17 08:23 Pulse 76 05/15/17 08:23 Resp 20 05/15/17 08:23 BP 106/68 05/15/17 08:23 Pulse Ox 97 05/15/17 08:23 - Labs Result Diagrams: 05/15/17 08:02 05/15/17 08:02 Labs: Laboratory Results - last 24 hr 05/15/17 05/15/17 05/15/17 08:02 08:02 08:02 WBC 6.0 RBC 3.82 L Hgb 12.2 Hct 36.1 MCV 94.5 H MCH 31.9 H MCHC 33.8 RDW 15.6 H Plt Count 178 MPV 8.6 Neut % (Auto) 53.5 Lymph % (Auto) 29.7 [place] % (Auto) 11.9 H Eos % (Auto) 4.3 H Baso % (Auto) 0.6 Neut # (Auto) 3.2 Lymph # (Auto) 1.8 [place] # (Auto) 0.7 Eos # (Auto) 0.3 Baso # (Auto) 0.0 Sodium 139 Potassium 4.2 Chloride 108 H Carbon Dioxide 16 L Anion Gap 18 BUN 16 Creatinine 1.4 Est GFR ( Amer) > 60 Est GFR (Non-Af Amer) 51 Random Glucose 93 Calcium 9.3 Total Bilirubin 1.0 AST 31 ALT 27 Alkaline Phosphatase 114 Total Protein 7.8 Albumin 3.7 Globulin 4.1 H Albumin/Globulin Ratio 0.9 L HIV 1&2 Antibody Screen Reactive Assessment & Plan (1) Chest pain Status: Acute (2) Abdominal pain Status: Acute (3) HIV (human immunodeficiency virus infection) Status: Acute (4) Hepatitis C antibody test positive Status: Acute
--- NOTE | 2017-05-15 15:28 | CP.PCM.PN ---
Subjective - Date & Time of Evaluation Date of Evaluation: 05/15/17 Time of Evaluation: 15:28 - Subjective Subjective: PT 2 DAY OBS; TO BE D/C HOME TODAY PER DR. Victorina FRANKLIN. DR FRANKLIN IS AWARE THAT THE CD4, T-CELL COUNT WAS DRAWN THIS MORNING; RESULT MAY TAKE 2 DAYS TO COME IN. PT TO BE D/C HOME TODAY AND F/U WITH DR. KIMBROUGH ON SATURDAY FOR LAB RESULTS AND FURTHER MANAGEMENT FOR HIS HIV. CLEARED BY DR. FREY FOR D/C. -FOLLOW UP WITH DR. Christy FRANKLIN IN THE OFFICE ON SATURDAY IF YOU'D LIKE---CALL THE OFFICE TO MAKE YOUR APPT TIME. -FOLLOW UP WITH DR. KIMBROUGH IN THE OFFICE BY SATURDAY---CALL THE OFFICE TO MAKE YOU APPT TIME. -FOLLOW UP WITH DR. FREY (HEART DOCTOR) IN THE OFFICE WITHIN 2-3 WEEKS---CALL FOR APPT TIME. -CONTINUE YOUR HOME MEDICATIONS USUAL. DR. KIMBROUGH WILL MAKE ADJUSTMENTS IF NEEDED AFTER YOUR BLOOD WORK IS RESULTED. -REFILL PRESCRIPTIONS HAVE BEEN PROVIDED TO YOU. PICK THEM UP SOON POSSIBLE. -YOU MAY TAKE A BABY ASPIRIN (81 MG) ONCE A DAY FOR HEART PROTECTION. -IF YOU HAVE ANY FURTHER CONCERNS OR QUESTIONS PRIOR TO YOUR APPTS, CONTACT DR. KIMBROUGH AND DR. FRANKLIN. Objective - Vital Signs/Intake and Output Vital Signs (last 24 hours): Temp Pulse Resp BP Pulse Ox 98.0 F 76 20 106/68 97 05/15/17 08:23 05/15/17 08:23 05/15/17 08:23 05/15/17 08:23 05/15/17 08:23 - Medications Medications: Current Medications Acetaminophen (Tylenol 325mg Tab) 650 mg PO Q6 PRN PRN Reason: Pain, moderate (4-7) Last Admin: 05/14/17 15:47 Dose: 650 mg Amlodipine Besylate (Norvasc) 10 mg PO DAILY [facility] Last Admin: 05/15/17 09:28 Dose: 10 mg Aspirin (Aspirin) 325 mg PO DAILY [facility] Last Admin: 05/15/17 09:28 Dose: 325 mg Heparin Sodium (Porcine) (Heparin) 5,000 units SC Q8 [facility] Last Admin: 05/15/17 14:23 Dose: 5,000 units Oxycodone/Acetaminophen (Percocet 5/325 Mg Tab) 1 tab PO Q8 PRN PRN Reason: Pain, severe (8-10) Stop: 05/16/17 22:01 Last Admin: 05/15/17 13:46 Dose: 1 tab Pantoprazole Sodium (Protonix Ec Tab) 40 mg PO DAILY [facility] Last Admin: 05/15/17 09:28 Dose: 40 mg Pregabalin (Lyrica) 75 mg PO BID [facility] Last Admin: 05/15/17 09:28 Dose: 75 mg Rosuvastatin Calcium (Crestor) 5 mg PO HS [facility] Last Admin: 05/14/17 21:53 Dose: 5 mg Zolpidem Tartrate (Ambien) 5 mg PO HS PRN PRN Reason: Insomnia Last Admin: 05/14/17 21:54 Dose: 5 mg - Labs Labs: 05/15/17 08:02 05/15/17 08:02
--- NOTE | 2017-05-15 23:36 | CARD ---
APPROVED REPORT EKG Measurement Heart [id number] <Conclusion> Sinus rhythm with premature atrial complexes Otherwise normal ECG
[2017-05-16 11:55] LABS: % CD4 (T HELPER CELL) 40 Percent (30-61); % CD8 (SUPPRESSOR T CELL) 42 Percent (12-42); ABSOLUTE CD4 CELLS 670 Cells/mcL (490-1740); ABSOLUTE CD8 CELLS 703 Cells/mcL (180-1170); ABSOLUTE LYMPHOCYTES 1690 Cells/mcL (850-3900); HELPER/SUPPRESSOR RATIO 0.95 Ratio (0.86-5.00)
== END 2017-05-15 16:44 | disposition home or self-care (01) ==
LOC: C.ER 02:17 → C.9E 09:10 → C.6T 09:34
PROVIDERS: ADMIT Internal Medicine Nephrology; ATTEND Internal Medicine Nephrology
DX: R07.9 Chest pain, unspecified (principal); F17.210 Nicotine dependence, cigarettes, uncomplicated; I10 Essential (primary) hypertension; J45.909 Unspecified asthma, uncomplicated; Z96.642 Presence of left artificial hip joint; R10.9 Unspecified abdominal pain; B20 Human immunodeficiency virus [HIV] disease; B19.20 Unspecified viral hepatitis C without hepatic coma; Z86.19 Personal history of other infectious and parasitic diseases; G47.00 Insomnia, unspecified
CPT/HCPCS: 36415; 71046; 71275; 78452; 80053; 80061; 83880; 84484; 85025; 85378; 86360; 86703; 87389; 93005; 93017; 93306; 93970; 94150; 94640; 96374; 97116; 97162; 99285; A9502; G0378; G8978; G8979; J1644; J2785; Q9967

== ENCOUNTER 2017-08-17 02:20 | Observation (INO) | payer MEDICARE ==
[2017-08-17 02:20] VITALS: BMI 25.9
--- NOTE | 2017-08-17 02:51 | C.PDOC ---
History Of Present Illness <Christian Zelaya R - Last Filed: 08/17/17 02:51> <Kirti Davila A - Last Filed: 08/17/17 17:39> 67 year old male with a Hx of HIV presents to the ER with a complaint of numbness to the left side of the face and vomiting. Denies headache. (Christian Zelaya R) History Per: Patient History/Exam Limitations: no limitations Onset/Duration Of Symptoms: Hrs Current Symptoms Are (Timing): Still Present Recent travel outside of the [place]: No <Christian Zelaya R - Last Filed: 08/17/17 02:51> <Kirti Davila A - Last Filed: 08/17/17 17:39> Chief Complaint (Nursing): GI Problem Past Medical History Reviewed: Historical Data, Nursing Documentation, Vital Signs - Medical History PMH: Asthma, Bronchitis, HTN Family History: States: Unknown Family Hx - Social History Hx Tobacco Use: Yes Hx Alcohol Use: Yes Hx Substance Use: No - Immunization History Hx Tetanus Toxoid Vaccination: Yes Hx Influenza Vaccination: Yes Hx Pneumococcal Vaccination: Yes <Christian Zelaya R - Last Filed: 08/17/17 02:51> Vital Signs: Last Vital Signs Temp 98 F 08/17/17 15:56 Pulse 74 08/17/17 15:56 Resp 20 08/17/17 15:56 BP 119/76 08/17/17 15:56 Pulse Ox 98 08/17/17 16:40 Review Of Systems Constitutional: Negative for: Fever, Chills Cardiovascular: Negative for: Chest Pain, Palpitations Respiratory: Negative for: Cough, Shortness of Breath Gastrointestinal: Negative for: Nausea, Vomiting Neurological: Positive for: Numbness (Left face), Headache <Christian Zelaya R - Last Filed: 08/17/17 02:51> Physical Exam - Physical Exam Appears: Non-toxic Skin: Normal Color, Warm, Dry Head: Atraumatic, Normacephalic, Other (No facial asymmetry) Eye(s): bilateral: Normal Inspection, PERRL, EOMI Oral Mucosa: Moist Neck: Normal, Supple Chest: Symmetrical, No Tenderness Cardiovascular: Rhythm Regular Respiratory: Normal Breath Sounds, No Rales, No Rhonchi, No Wheezing Gastrointestinal/Abdominal: Soft, No Tenderness Extremity: Other (Mild swelling of the right lower extremity) Neurological/Psych: Oriented x3, Normal Speech, Normal Motor, Normal Sensation, Other (No focal deficits) <Christian Zelaya R - Last Filed: 08/17/17 02:51> ED Course And Treatment O2 Sat by Pulse Oximetry: 98 (Room air) Pulse Ox Interpretation: Normal Progress Note: CT head and blood work ordered. Toradol administered. <Christian Zelaya - Last Filed: 08/17/17 02:51> - Laboratory Results Result Diagrams: 08/17/17 03:17 08/17/17 03:17 <Kirti Davila A - Last Filed: 08/17/17 17:39> rTPA Inclusion/Exclusion - Refusal of Treatment Patient Refused Treatment: No - Inclusion Criteria for Altepase Patient is 18 years or Older: Yes The Clinical Diagnosis of Ischemic Stroke That is Causing a Potentially Disabling Neurological Deficit: No Time of Onset is Well Established to be Less Than 270 Minute Before Treatment Would Begin: No Risk/Benefit Discussed With Patient/Family Member Present: No <Kirti Davila - Last Filed: 08/17/17 17:39> NIHSS Stroke Scale - Date/Time Evaluation Performed Date Performed: 08/17/17 Time Performed: 07:15 When Was NIHSS Performed: Baseline - How Severe is the Stroke Level of Consciousness: 0=Alert LOC to Questions: 0=Both comments correct LOC to commands: 0=Obeys both correctly Best Gaze: 0=Normal Visual: 0=No visual loss Facial: 0=Normal Motor Arm - Left: 0=No drift Motor Arm - Right: 0=No drift Motor Leg - Left: 0=No drift Motor Leg - Right: 0=No drift Limb Ataxia: 0=Absent Sensory: 1=Mild to moderate loss (mild left sided facial numbness) Best Language: 0=No aphasia Dysarthia: 0=Normal articulation Extinction & Inattention (Neglect): 0=Normal, no object Score: 1 <Kirti Davila - Last Filed: 08/17/17 17:39> Disposition <Christian Zelaya - Last Filed: 08/17/17 02:51> - Disposition Disposition Time: 09:33 <Kirti Davila - Last Filed: 08/17/17 17:39> - Disposition Disposition: HOSPITALIZED Condition: STABLE - Clinical Impression Clinical Impression: TIA (transient ischemic attack), Left facial numbness, Elevated serum creatinine, Dehydration - Scribe Statement The provider has reviewed the documentation as recorded by the Scribe <Christian Zelaya - Last Filed: 08/17/17 02:51> <Kirti Davila A - Last Filed: 08/17/17 17:39> - Scribe Statement Ashu Kraus All medical record entries made by the Scribe were at my direction and personally dictated by me. I have reviewed the chart and agree that the record accurately reflects my personal performance of the history, physical exam, medical decision making, and the department course for this patient. I have also personally directed, reviewed, and agree with the discharge instructions and disposition. (Christian Zelaya) Addendum <Christian Zelaya - Last Filed: 08/17/17 02:51> <Kirti Davila A - Last Filed: 08/17/17 17:39> Addendum: 08/17/17 07:23 No peripheral access obtainable by nurse. Right sided EJ 18 gauge peripheral IV inserted by me, patient tolerated well. 08/17/17 09:12 Accession No. : [id number] Patient Name / ID : MAXWELL CASPER / [id number] Exam Date : 08/17/2017 08:14:53 ( Approved ) Study Comment : Sex / Age : M / 67Y Creator : Addison Schuster MD Dictator : Registered Dietetic Technician : Cabin Equipment Supervisor : Addison Schuster MD Approver2 : Report Date : 08/17/2017 09:09:58 My Comment : PROCEDURE: CT Chest with contrast (Pulmonary Angiogram) HISTORY: elevated D-dimer/ chest discomfort COMPARISON: None available. TECHNIQUE: Axial computed tomography images were obtained of the chest in the pulmonary arterial phase of enhancement. Coronal and sagittal reformatted images were created and reviewed. Intravenous contrast dose: 100 cc Visipaque 320 Radiation dose: Total exam DLP = 381.05 mGy-cm. This CT exam was performed using one or more of the following dose reduction techniques: Automated exposure control, adjustment of the mA and/or kV according to patient size, and/or use of iterative reconstruction technique. FINDINGS: PULMONARY ARTERIES: Unremarkable. No pulmonary embolism. Pulmonary trunk measures approximately 2.65 cm. . There may be a tiny bubble of air within the the right aspect of the main pulmonary trunk likely due to injection AORTA: No acute findings. No thoracic aortic aneurysm. Ascending thoracic aorta measures approximately 3.3 cm and descending thoracic aorta measures approximately 2.65 cm. The right brachiocephalic and left common carotid artery arise from a common trunk. LUNGS: Minor passive/dependent atelectasis seen both posterior lower lung zones. . . There are also some mild scarring changes seen in the left medial lung base, lingular region as well as superior aspect right lower and middle lobe. PLEURAL SPACES: Unremarkable. No effusion or pneumothorax. HEART: Unremarkable. Heart is enlarged. . No significant pericardial effusion. LYMPH NODES: No there are a few small nonspecific mediastinal lymph nodes. . . Central airways midline and patent. Small hiatal hernia with wall thickening of the distal esophagus likely due to protrusion of gastric mucosa. Possibility of esophagitis or other intrinsic wall lesion not excluded. BONES, CHEST WALL: Unremarkable. No fracture or destructive lesion OTHER FINDINGS: There is a small calcification seen in the left lobe of the liver. IMPRESSION: No evidence of acute pulmonary embolus. Mild scarring changes seen throughout the lower lobes including the lingular and middle lobe regions. 08/17/17 09:20 Name: PENNIE ARREOLA Age: 67Years M Date: 08/17/2017 Requesting Physician: Christian Zelaya : 1950 [employer] Procedure Ordered As Accession Number of Images CT HEAD WO CT HEAD W O CONTRAST [id number] Provided Clinical History: Headache CONFIDENTIALITY STATEMENT This report is intended only for the use of the referring physician, and only in accordance with law, If you received this in error, call [phone] Page 1 of 1 EXAM: CT Head Without Intravenous Contrast CLINICAL HISTORY: 67 years old, male; Pain; Headache; Patient HX: 09-27-16 TECHNIQUE: Axial computed tomography images of the head/brain without intravenous contrast. All CT scans at this facility use at least one of these dose optimization techniques: automated exposure control; mA and/or kV adjustment per patient size (includes targeted exams where dose is matched to clinical indication); or iterative reconstruction. COMPARISON: No relevant prior studies available. FINDINGS: Brain: Cerebral and cerebellar atrophy. Small vessel ischemic/degenerative changes. Physiologic basal ganglia calcifications. No hemorrhage. Ventricles: Unremarkable. No ventriculomegaly. Bones/joints: Unremarkable. No acute fracture. Soft tissues: Unremarkable. Vasculature: Intracranial arterial calcifications. Sinuses: Unremarkable as visualized. No acute sinusitis. Mastoid air cells: Unremarkable as visualized. No mastoid effusion. IMPRESSION: 1. Cerebral and cerebellar atrophy. 2. Small vessel ischemic/degenerative changes. Thank you for allowing us to participate in the care of your patient. Dictated and Authenticated by: James Tesfaye MD 08/17/2017 8:18 AM Eastern Time ([place] & [place]) 08/17/17 09:[address] Lee Tapia, requests admission to Dr. Victorina Hinojosa with him on consult for possible TIA. Dr. Victorina Hinojosa contacted and agrees [facility] admission to his service, Dr. Osuna for neurology. (Kirti Davila) Decision To Admit <Christian Zelaya - Last Filed: 08/17/17 02:51> - Pt Status Changed To: Hospital Disposition Of: Observation - . Bed Request Type: Telemetry Admitting Physician: Jonathan Hinojosa <Kirti Davila - Last Filed: 08/17/17 17:39> - . Patient Diagnosis: TIA (transient ischemic attack), Left facial numbness, Elevated serum creatinine, Dehydration
[2017-08-17 03:21] LABS: BASO # 0.1 K/uL (0.0-0.2); BASO % 1.1 % (0.0-2.0); EOS # 0.3 K/uL (0.0-0.7); EOS % 5.1 % (0.0-4.0); HEMOGLOBIN 11.2 g/dL (12.0-18.0); LYMPH # 1.5 K/uL (1.0-4.3); LYMPH % 28.3 % (20.0-40.0); MEAN CELL VOLUME 94.1 fL (80.0-94.0); MEAN PLATELET VOLUME 8.4 fL (7.2-11.7); MONO # 0.6 K/uL (0.0-0.8); NEUT # 2.9 K/uL (1.8-7.0); NEUT % 54.5 % (50.0-75.0); RBC 3.61 Mil/uL (4.40-5.90); RED CELL DISTRIBUTION WIDTH 13.8 % (11.5-14.5); WHITE BLOOD COUNT 5.3 K/uL (4.8-10.8)
[2017-08-17 03:32] LABS: ALBUMIN 4.1 g/dL (3.5-5.0); CALCIUM 9.6 mg/dl (8.6-10.4)
[2017-08-17] MEDS ORDERED: Iodixanol 320 MG/ML 100 ML BOTTLE IV ONE (04:37)
--- NOTE | 2017-08-17 09:11 | CT ---
PROCEDURE: CT Chest with contrast (Pulmonary Angiogram) HISTORY: elevated D-dimer/ chest discomfort COMPARISON: None available. TECHNIQUE: Axial computed tomography images were obtained of the chest in the pulmonary arterial phase of enhancement. Coronal and sagittal reformatted images were created and reviewed. Intravenous contrast dose: 100 cc Visipaque 320 Radiation dose: Total exam DLP = 381.05 mGy-cm. This CT exam was performed using one or more of the following dose reduction techniques: Automated exposure control, adjustment of the mA and/or kV according to patient size, and/or use of iterative reconstruction technique. FINDINGS: PULMONARY ARTERIES: Unremarkable. No pulmonary embolism. Pulmonary trunk measures approximately 2.65 cm. . There may be a tiny bubble of air within the the right aspect of the main pulmonary trunk likely due to injection AORTA: No acute findings. No thoracic aortic aneurysm. Ascending thoracic aorta measures approximately 3.3 cm and descending thoracic aorta measures approximately 2.65 cm. The right brachiocephalic and left common carotid artery arise from a common trunk. LUNGS: Minor passive/dependent atelectasis seen both posterior lower lung zones. . . There are also some mild scarring changes seen in the left medial lung base, lingular region as well as superior aspect right lower and middle lobe. PLEURAL SPACES: Unremarkable. No effusion or pneumothorax. HEART: Unremarkable. Heart is enlarged. . No significant pericardial effusion. LYMPH NODES: No there are a few small nonspecific mediastinal lymph nodes. . . Central airways midline and patent. Small hiatal hernia with wall thickening of the distal esophagus likely due to protrusion of gastric mucosa. Possibility of esophagitis or other intrinsic wall lesion not excluded. BONES, CHEST WALL: Unremarkable. No fracture or destructive lesion OTHER FINDINGS: There is a small calcification seen in the left lobe of the liver. IMPRESSION: No evidence of acute pulmonary embolus. Mild scarring changes seen throughout the lower lobes including the lingular and middle lobe regions.
[2017-08-17] MEDS ORDERED: Sodium Chloride 0.9% 500 ML IV ONE (09:34)
--- NOTE | 2017-08-17 09:38 | CT ---
PROCEDURE: CT HEAD WITHOUT CONTRAST. HISTORY: Headache COMPARISON: Comparison made with CT scan brain 09/27/2016 TECHNIQUE: Axial computed tomography images were obtained through the head/brain without intravenous contrast. Radiation dose: Total exam DLP = 755.4. MGy-cm. This CT exam was performed using one or more of the following dose reduction techniques: Automated exposure control, adjustment of the mA and/or kV according to patient size, and/or use of iterative reconstruction technique. FINDINGS: HEMORRHAGE: No intracranial hemorrhage. BRAIN: Moderate diffuse/confluent chronic periventricular white matter ischemic changes seen extending peripherally into the deep and subcortical white matter both cerebral hemispheres. . Moderate generalized volume loss. VENTRICLES: No obstructive hydrocephalus. CALVARIUM: No acute calvarial fractures. PARANASAL SINUSES: Unremarkable as visualized. No significant inflammatory changes. MASTOID AIR CELLS: Unremarkable as visualized. No inflammatory changes. OTHER FINDINGS: None. IMPRESSION: No acute intracranial hemorrhage. Moderate chronic periventricular white matter ischemic changes. Moderate volume loss.
--- NOTE | 2017-08-17 13:56 | CP.PCM.CON ---
History of Present Illness - History of Present Illness History of Present Illness: 67 year old male with a history of HTN, HIV, colitis, RLE DVT, admitted with left facial numbness. The patient was diagnosed early this month with a RLE DVT and started on ELiquis. He noted to left facial numbness and shoulder pain which prompted him to come to the hospital. He also has some abdominal discomfort but has no N/V. Past medical history: HTN, HIV, colitis, RLE DVT Past surgical history: Left hip replacement, back surgery Family history: Sister with breast cancer, parents unknown cancers Social history: Denies tobacco, drinks wine socially Allergies: NKA Review of systems: All remaining review of systems including HEENT, cardiovascular, respiratory, gastrointestinal, genitourinary, musculoskeletal, dermatologic, neurologic, and psychaitric are negative unless mentioned in the HPI. Past Patient History - Infectious Disease Hx of Infectious Diseases: None - Tetanus Immunizations Tetanus Immunization: Unknown - Past Medical History & Family History Past Medical History?: Yes - Past Social History Smoking Status: Heavy Smoker > 10 Cigarettes Daily - CARDIAC Hx Hypertension: Yes - PULMONARY Hx Asthma: Yes Hx Bronchitis: Yes - NEUROLOGICAL HX Cerebrovascular Accident: No - HEMATOLOGICAL/ONCOLOGICAL Hx Hepatitis B: Yes - MUSCULOSKELETAL/RHEUMATOLOGICAL Hx Falls: No - GASTROINTESTINAL Hx Colitis: Yes - PSYCHIATRIC Hx Substance Use: No - SURGICAL HISTORY Hx Surgeries: Yes Hx Orthopedic Surgery: Yes (right ankle, left hip replacement, neck surgery) Other/Comment: right knee sx. 14 screws to left ankle. left hip replacement - ANESTHESIA Hx Anesthesia: Yes Meds Allergies/Adverse Reactions: Allergies Allergy/AdvReac Type Severity Reaction Status Date / Time No Known Allergies Allergy Verified 08/17/17 02:38 Physical Exam - Head Exam Head Exam: ATRAUMATIC - Eye Exam Eye Exam: Normal appearance - ENT Exam ENT Exam: Mucous Membranes Dry - Respiratory Exam Respiratory Exam: NORMAL BREATHING PATTERN - Cardiovascular Exam Cardiovascular Exam: +S1, +S2 - GI/Abdominal Exam GI & Abdominal Exam: Normal Bowel Sounds - Extremities Exam Extremities exam: Positive for: pedal edema - Neurological Exam Neurological exam: Oriented x3 - Psychiatric Exam Psychiatric exam: Normal Affect, Normal Mood - Skin Skin Exam: Warm Results - Vital Signs Recent Vital Signs: Last Vital Signs Temp 98.4 F 08/17/17 02:35 Pulse 73 08/17/17 09:32 Resp 15 08/17/17 09:32 BP 113/72 06/30/18 09:32 Pulse Ox 100 08/17/17 09:32 - Labs Result Diagrams: 08/17/17 03:17 08/17/17 03:17 Labs: Laboratory Results - last 24 hr 08/17/17 08/17/17 08/17/17 02:46 02:54 03:17 WBC 5.3 RBC 3.61 L Hgb 11.2 L Hct 33.9 L MCV 94.1 H MCH 31.0 MCHC 33.0 RDW 13.8 Plt Count 134 MPV 8.4 Neut % (Auto) 54.5 Lymph % (Auto) 28.3 Mcleod % (Auto) 11.0 H Eos % (Auto) 5.1 H Baso % (Auto) 1.1 Neut # (Auto) 2.9 Lymph # (Auto) 1.5 Mcleod # (Auto) 0.6 Eos # (Auto) 0.3 Baso # (Auto) 0.1 D-Dimer, Quantitative 559 H Sodium Potassium Chloride Carbon Dioxide Anion Gap BUN Creatinine Est GFR ( Amer) Est GFR (Non-Af Amer) POC Glucose (mg/dL) 90 Random Glucose Calcium Total Bilirubin AST ALT Alkaline Phosphatase Total Protein Albumin Globulin Albumin/Globulin Ratio 08/17/17 03:17 WBC RBC Hgb Hct MCV MCH MCHC RDW Plt Count MPV Neut % (Auto) Lymph % (Auto) Mcleod % (Auto) Eos % (Auto) Baso % (Auto) Neut # (Auto) Lymph # (Auto) Mcleod # (Auto) Eos # (Auto) Baso # (Auto) D-Dimer, Quantitative Sodium 145 Potassium 4.6 Chloride 112 H Carbon Dioxide 21 L Anion Gap 18 BUN 18 Creatinine 1.8 H Est GFR ( Amer) 46 Est GFR (Non-Af Amer) 38 POC Glucose (mg/dL) Random Glucose 99 Calcium 9.6 Total Bilirubin 0.7 AST 33 ALT 23 Alkaline Phosphatase 103 Total Protein 8.4 H Albumin 4.1 Globulin 4.3 H Albumin/Globulin Ratio 1.0 Assessment & Plan (1) DVT (deep venous thrombosis) Assessment and Plan: unprovoked RLE DVT dx 07/2017 on Eliquis Status: Acute (2) Anemia Assessment and Plan: 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 Status: Acute
[2017-08-17] MEDS: Pantoprazole 40 mg EC Tab PO SCH (14:45)
[2017-08-17] MEDS: Oxycodone/Acetaminophen 5/325 mg Tab PO PRN (19:08)
--- NOTE | 2017-08-17 19:14 | CP.PCM.HP ---
Past Patient History - Infectious Disease Hx of Infectious Diseases: None - Tetanus Immunizations Tetanus Immunization: Unknown - Past Medical History & Family History Past Medical History?: Yes - Past Social History Smoking Status: Heavy Smoker > 10 Cigarettes Daily - CARDIAC Hx Hypertension: Yes - PULMONARY Hx Asthma: Yes Hx Bronchitis: Yes - NEUROLOGICAL HX Cerebrovascular Accident: No - HEMATOLOGICAL/ONCOLOGICAL Hx Hepatitis B: Yes - MUSCULOSKELETAL/RHEUMATOLOGICAL Hx Falls: No - GASTROINTESTINAL Hx Colitis: Yes - PSYCHIATRIC Hx Substance Use: No - SURGICAL HISTORY Hx Surgeries: Yes Hx Orthopedic Surgery: Yes (right ankle, left hip replacement, neck surgery) Other/Comment: right knee sx. 14 screws to left ankle. left hip replacement - ANESTHESIA Hx Anesthesia: Yes Meds Allergies/Adverse Reactions: Allergies Allergy/AdvReac Type Severity Reaction Status Date / Time No Known Allergies Allergy Verified 08/17/17 02:38 Physical Exam - Eye Exam Eye Exam: Conjunctival injection, EOMI, Normal appearance, PERRL Pupil Exam: NORMAL ACCOMODATION, PERRL - ENT Exam ENT Exam: Mucous Membranes Moist, Normal Exam - Neck Exam Neck exam: Positive for: Normal Inspection - Respiratory Exam Respiratory Exam: Decreased Breath Sounds - Cardiovascular Exam Cardiovascular Exam: REGULAR RHYTHM, +S1, +S2 - GI/Abdominal Exam GI & Abdominal Exam: Diminished Bowel Sounds, Soft - Rectal Exam Rectal Exam: Deferred Results - Vital Signs Recent Vital Signs: Last Vital Signs Temp 98 F 08/17/17 15:56 Pulse 74 08/17/17 15:56 Resp 20 08/17/17 15:56 BP 119/76 08/17/17 15:56 Pulse Ox 98 08/17/17 16:40 - Labs Result Diagrams: 08/17/17 03:17 08/17/17 03:17 Labs: Laboratory Results - last 24 hr 08/17/17 08/17/17 08/17/17 02:46 02:54 03:17 WBC 5.3 RBC 3.61 L Hgb 11.2 L Hct 33.9 L MCV 94.1 H MCH 31.0 MCHC 33.0 RDW 13.8 Plt Count 134 MPV 8.4 Neut % (Auto) 54.5 Lymph % (Auto) 28.3 Gilliam % (Auto) 11.0 H Eos % (Auto) 5.1 H Baso % (Auto) 1.1 Neut # (Auto) 2.9 Lymph # (Auto) 1.5 Gilliam # (Auto) 0.6 Eos # (Auto) 0.3 Baso # (Auto) 0.1 D-Dimer, Quantitative 559 H Sodium Potassium Chloride Carbon Dioxide Anion Gap BUN Creatinine Est GFR ( Amer) Est GFR (Non-Af Amer) POC Glucose (mg/dL) 90 Random Glucose Calcium Total Bilirubin AST ALT Alkaline Phosphatase Total Protein Albumin Globulin Albumin/Globulin Ratio 08/17/17 03:17 WBC RBC Hgb Hct MCV MCH MCHC RDW Plt Count MPV Neut % (Auto) Lymph % (Auto) Gilliam % (Auto) Eos % (Auto) Baso % (Auto) Neut # (Auto) Lymph # (Auto) Gilliam # (Auto) Eos # (Auto) Baso # (Auto) D-Dimer, Quantitative Sodium 145 Potassium 4.6 Chloride 112 H Carbon Dioxide 21 L Anion Gap 18 BUN 18 Creatinine 1.8 H Est GFR ( Amer) 46 Est GFR (Non-Af Amer) 38 POC Glucose (mg/dL) Random Glucose 99 Calcium 9.6 Total Bilirubin 0.7 AST 33 ALT 23 Alkaline Phosphatase 103 Total Protein 8.4 H Albumin 4.1 Globulin 4.3 H Albumin/Globulin Ratio 1.0
[2017-08-18] MEDS: Oxycodone/Acetaminophen 5/325 mg Tab PO PRN ×3 (06:35→20:13)
[2017-08-18] MEDS: Pantoprazole 40 mg EC Tab PO SCH (09:19)
[2017-08-18 14:02] LABS: HDL CHOLESTEROL 29 mg/dL (30-70)
[2017-08-18 14:12] LABS: LDL CHOLESTEROL 96 mg/dL (0-129)
--- NOTE | 2017-08-18 15:37 | CP.PCM.PN ---
Subjective - Date & Time of Evaluation Date of Evaluation: 08/18/17 Time of Evaluation: 10:30 - Subjective Subjective: clinically same Objective - Vital Signs/Intake and Output Vital Signs (last 24 hours): Temp Pulse Resp BP Pulse Ox 98.2 F 76 20 106/63 97 08/18/17 07:00 08/18/17 12:00 08/18/17 07:00 08/18/17 09:18 08/18/17 07:00 Intake and Output: 08/18/17 08/18/17 06:59 18:59 Intake Total 400 Balance 400 - Medications Medications: Current Medications Amlodipine Besylate (Norvasc) 10 mg PO DAILY [facility] Last Admin: 08/18/17 09:19 Dose: 10 mg Apixaban (Eliquis) 5 mg PO BID [facility] Last Admin: 08/18/17 09:19 Dose: 5 mg Aspirin (Aspirin) 325 mg PO DAILY [facility] Last Admin: 08/18/17 09:19 Dose: 325 mg Oxycodone/Acetaminophen (Percocet 5/325 Mg Tab) 1 tab PO Q4H PRN Stop: 08/20/17 18:01 Last Admin: 08/18/17 06:35 Dose: 1 tab Pantoprazole Sodium (Protonix Ec Tab) 40 mg PO DAILY [facility] Last Admin: 08/18/17 09:19 Dose: 40 mg Pregabalin (Lyrica) 75 mg PO BID [facility] Last Admin: 08/18/17 09:19 Dose: 75 mg Rosuvastatin Calcium (Crestor) 5 mg PO [facility] Zolpidem Tartrate (Ambien) 5 mg PO [facility] Last Admin: 08/17/17 23:58 Dose: 5 mg - Labs Labs: 08/17/17 03:17 08/17/17 03:17 - Constitutional Appears: Well - Head Exam Head Exam: ATRAUMATIC, NORMAL INSPECTION, NORMOCEPHALIC - Eye Exam Eye Exam: EOMI, Normal appearance, PERRL Pupil Exam: NORMAL ACCOMODATION, PERRL - ENT Exam ENT Exam: Mucous Membranes Moist, Normal Exam - Neck Exam Neck Exam: Full ROM, Normal Inspection. absent: Lymphadenopathy - Respiratory Exam Respiratory Exam: Decreased Breath Sounds - Cardiovascular Exam Cardiovascular Exam: REGULAR RHYTHM, +S1, +S2 - GI/Abdominal Exam GI & Abdominal Exam: Soft, Diminished Bowel Sounds - Rectal Exam Rectal Exam: Deferred
[2017-08-19] MEDS: Oxycodone/Acetaminophen 5/325 mg Tab PO PRN ×4 (03:20→20:50)
--- NOTE | 2017-08-19 07:11 | CON ---
DATE: 08/18/2017 ATTENDING PHYSICIAN: Dr. Christy Hinojosa. REASON FOR CONSULTATION: Left-sided numbness and tingling. HISTORY: The patient is a 67 years old right-handed gentleman with past medical history of hypertension, HIV, colitis, cervical lumbosacral surgeries, neck pain, low back pain, heavy smoker in the past, right lower extremity DVT diagnosed a month ago. The patient was admitted because of an episode of numbness and tingling of the face, left arm and leg with heaviness started on Saturday morning, which was 08/16/2017 and resolved after half hour as per the patient. The patient denied associated double vision, blurred vision, dysarthria or dysphagia. The patient's symptoms resolved without residual after almost 18 hours at 12 o'clock on Saturday, same day the patient stated that he had numbness and tingling of the face, arm and leg and felt heavy in the face on the left side and that is the reason he called 911. The patient was admitted because of the recurrence of the symptoms and had it on the same side. No preceding chest pain, palpitations, shortness of breath or confusion, this time lasted 1 hour and resolved although the patient is on Eliquis because of the DVT. The patient denied such episodes in the past. No past history of seizures. The patient states that the symptoms again was not preceded by dizziness, chest pain, palpitations or shortness of breath. The patient has been ambulating with a cane because of the previous history of lumbar surgery and cervical surgery. PAST MEDICAL HISTORY: As mentioned above, hypertension, HIV, colitis, right lower extremity DVT. PAST SURGICAL HISTORY: Left hip replacement, cervical and lumbosacral surgery. FAMILY HISTORY: Noncontributory. SOCIAL HISTORY: Denies drug and ethanol abuse. The patient is a heavy ex-smoker, just quit recently, still smoking 1 pack per week. ALLERGIES: NO KNOW ALLERGIC REACTION TO MEDICATION. CURRENT MEDICATIONS: Zolpidem, aspirin, rosuvastatin, Apixaban, pregabalin, amlodipine, oxycodone, pantoprazole. REVIEW OF SYSTEMS: As per H and P and ER note, reviewed. PHYSICAL EXAMINATION: VITAL SIGNS: Blood pressure 106/63, pulse 88, respirations 20. MENTAL STATUS: The patient is alert, awake and oriented x3. Normal naming, repetition and comprehension. CRANIAL NERVES: Pupils asymmetrical. The patient has dense corneal opacification. 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 Right eye has dense cataract and pupils reactive. No field defect. No facial palsy. V1 to V3 intact. The patient is hypophonic probably secondary to chronic heavy smoker. MOTOR: Normal tone in upper extremities, positive asterixis and myoclonic jerks while extending the arms and hyperextending the wrist. Upper extremity, deltoid, elbow financial professional 5/5. Lower extremities bilateral hip flexion 4 to 4+/5. Knee flexion, extension, ankle dorsiflexion, plantar extension 5-/5. Deep tendon reflexes 2+ in upper and lower extremities. No clonus. Plantar flexion. SENSORY: Pinprick, light touch symmetric. Coordination, [id number] slightly dysmetric because of myoclonic jerks. LABORATORY DATA: CAT scan of the brain reviewed consistent with significant periventricular white matter disease mostly in the frontal, possibility of small lacunar infarcts in bilateral frontal periventricular region cannot be excluded in addition to right cerebellar hypodensity, possibility of old CVA also is likely. Labs reviewed. IMPRESSION: 1. Transient ischemic attack associated with left facial, arm, leg, numbness and tingling, the transient first episode half hour, second episode 1 hour. The patient will need MRI of the brain, carotid Doppler, EEG, hydration. The patient is already on aspirin and Eliquis, already protected. 2. The patient has myoclonic jerks probably to chronic hypoxia and heavy smoker, possibility of chronic obstructive pulmonary disease to be considered. 3. Hypophonia. I have strongly recommended the patient to be seen by ENT after discharge. 4. Neck and low back pain, status post surgeries as an outpatient. Physical therapy for ambulation out of bed to chair. Thank you for the consultation and Dr. Osuna will follow up the patient tomorrow. Jimmy East MD
[2017-08-19] MEDS: Pantoprazole 40 mg EC Tab PO SCH (10:50)
[2017-08-19 12:12] LABS: FREE T4 0.68 ng/dL (0.78-2.19)
[2017-08-19] MEDS: MESALAMINE 800 MG PO SCH (17:07)
--- NOTE | 2017-08-19 17:19 | CON ---
DATE: 08/19/2017 ATTENDING PHYSICIAN: Anup Tapia MD LOCATION: The patient is in room number 651, bed 1. REASON FOR THE NEUROLOGICAL FOLLOW UP EVALUATION : Left-sided facial numbness. The patient was seen and evaluated from neurological point of view by Dr. East, who was the covering physician for me over the weekend, yesterday, for possible ischemic attack. At present, he is complaining of no related complaints that he was brought in. Symptoms are all resolved as per the patient. Initially, he had left-sided pain and numbness from his left upper back down to his leg. A few hours after, he had a nap, he woke up with left facial numbness, not associating with any speech and visual or bulbar dysfunction. Because of the second symptom threatened him to come to the hospital, he called 911 at that point. PAST MEDICAL HISTORY: Significant for HIV, hypertension, right lower extremity deep vein thrombosis. ALLERGIES: NO KNOWN ALLERGIES. REVIEW OF SYSTEMS: Twelve-point system being reviewed. From neuro, new numbness of his left side of the face. MEDICATIONS: Ambien, Crestor, Ecotrin, Eliquis, Lyrica, Norvasc, Percocet, pantoprazole. PHYSICAL EXAMINATION: VITAL SIGNS: Blood pressure 113/64, mean arterial pressure of 80, respiratory rate 20, temperature afebrile, pulse rate 81 and regular. NECK: Supple. No carotid bruit. HEART: Heart sounds regular. CHEST: Fair air entry. EXTREMITIES: No edema in legs. NEUROLOGIC: Left facial asymmetry manifesting as flattening of the left nasolabial fold. He also admits left-sided blindness; however, visual field is intact on counting the fingers. Motor Examination: Pain limited examination on both upper and lower extremities, all related to his previous surgeries, which were done more than 14 and 20 years ago. Deep tendon reflexes, both upper extremities and lower extremities were hyperreflexic on the left side. Right side was areflexic. Plantars are mute on the right side, left side was equivocal response. Sensory examination: No cortical sensory loss. Coordination: Gross dysmetria, left more than his right side. WORKUP: CT of the head, cerebral as well as cerebellar atrophy with small vessel disease. EKG, normal sinus rhythm. BLOOD WORKUP: WBC 5.3, hemoglobin 11.2, hematocrit 33.9, platelet 134. D-dimer 559. Sodium 145, potassium 4.6, chloride 112, bicarbonate 31, GFR 46, total protein 8.4. Globulin 4.3. Cholesterol 161, LDL 96, HDL 29. NEUROLOGICAL ASSESSMENT: The patient does have right subcortical dysfunction manifesting with left hyperreflexia, all consistent with either right internal capsular or brainstem dysfunction. This all probably is secondary to his hypertension and possible human immunodeficiency virus related ischemic process. RECOMMENDATIONS: 1. MRI of the brain to rule out the above vascular or space-occupying lesion. 2. Carotid Doppler to assess the stenosis. 3. Echocardiogram to rule out cardiogenic causes for his stroke. 4. Peripheral neuropathy. 5. Post-laminectomy pain syndrome from neck as well as his lumbosacral spine region. 6. Physical therapy to be continued and fall precaution. 7. I decreased the dose of the aspirin to 81 mg, which could do the same purpose of 325. Let him continue Eliquis for now. The patient will be followed while he is in the hospital. Pal Osuna MD MTDRito
--- NOTE | 2017-08-19 17:29 | VASCLAB ---
PROCEDURE: Lower Extremity Venous Duplex Exam. HISTORY: rt leg pain/swelling, HX OF DVT OF THE RIGHT LOWER EXTREMITY PRIORS: None. TECHNIQUE: Bilateral common femoral, femoral, popliteal and posterior tibial, peroneal and great saphenous veins were evaluated. Flow was assessed with color Doppler, compressibility, assessment of phasic flow and augmentation response. Report prepared by Vee Holloway, ISABEL, RVS FINDINGS: RIGHT: 1. Common Femoral Vein: 1.1. Compressibility - Fully compressible: Thrombus - None : Flow - Phasic: Augmentation -Normal: Reflux - None. 2. Femoral Vein: 2.1. Compressibility - Incompressible: Thrombus - Acute : Flow - Absent : Augmentation -None: Reflux - None. 3. Popliteal Vein: 3.1. Compressibility - Partial: Thrombus - Acute : Flow - Reduced : Augmentation -Normal: Reflux - None. 4. Posterior Tibial Vein: 4.1. Compressibility - Fully compressible: Thrombus - None: Flow - Phasic: Augmentation -Normal: Reflux - None. 5. Peroneal Vein: 5.1. Compressibility - Fully compressible: Thrombus - None: Flow - Phasic: Augmentation -Normal: Reflux - None. 6. Great Saphenous Vein: 6.1. Compressibility - Fully compressible: Thrombus - None: Flow - Phasic: Augmentation - Normal: Reflux - None. LEFT: 1. Common Femoral Vein: 1.1. Compressibility - Fully compressible: Thrombus - None: Flow - Phasic: Augmentation -Normal: Reflux - None. 2. Femoral Vein: 2.1. Compressibility - Fully compressible: Thrombus - None: Flow - Phasic: Augmentation -Normal: Reflux - None. 3. Popliteal Vein: 3.1. Compressibility - Fully compressible: Thrombus - None : Flow - Phasic: Augmentation -Normal: Reflux - None. 4. Posterior Tibial Vein: 4.1. Compressibility - Fully compressible: Thrombus - None: Flow - Phasic: Augmentation -Normal: Reflux - None. 5. Peroneal Vein: 5.1. Compressibility - Fully compressible: Thrombus - None: Flow - Phasic: Augmentation -Normal: Reflux - None. 6. Great Saphenous Vein: 6.1. Compressibility - Fully compressible: Thrombus - None: Flow - Phasic: Augmentation - Normal: Reflux - None. OTHER FINDINGS: Right: None significant. Left: None significant. IMPRESSION: Right: No evidence of deep or superficial vein thrombosis of the right lower extremity. Normal valve function noted of the right side. There is non compressible right femoral vein and partial compression right popliteal vein. Left: No evidence of deep or superficial vein thrombosis of the left lower extremity. Normal valve function noted of the left side. Nurse -Rafa was notified with the result.
--- NOTE | 2017-08-19 20:29 | CARD ---
APPROVED REPORT EXAM: Two-dimensional and M-mode echocardiogram with Doppler and color Doppler. Other Information Quality : GoodRhythm : INDICATION CVA/TIA Stroke 2D DIMENSIONS IVSd1.2 (0.7-1.1cm)LVDd4.1 (3.9-5.9cm) PWd1.0 (0.7-1.1cm)LVDs2.4 (2.5-4.0cm) FS (%) 41.4 %LVEF (%)72.7 (>50%) M-Mode DIMENSIONS Left Atrium (MM)4.05 (2.5-4.0cm)IVSd1.07 (0.7-1.1cm) Aortic Root3.65 (2.2-3.7cm)LVDd4.86 (4.0-5.6cm) Aortic Cusp Exc.2.33 (1.5-2.0cm)PWd0.98 (0.7-1.1cm) FS (%) 39 %LVDs2.95 (2.0-3.8cm) LVEF (%)70 (>50%) Mitral Valve MV E Dpgynydg88.9cm/sMV A Vvczcwwm07.0cm/sE/A ratio1.1 TDI E/Lateral E'0.0E/Medial E'0.0 Tricuspid Valve TR Peak [id number] Peak [id number] LEFT VENTRICLE The left ventricle is normal size. There is normal left ventricular wall thickness. Left ventricle systolic function is normal. The Ejection Fraction is >70%. There is normal LV segmental wall motion. The left ventricular diastolic function is normal. No left ventricle thrombus noted on this study. RIGHT VENTRICLE The right ventricle is normal size. The right ventricular systolic function is normal. ATRIA The left atrium size is normal. The right atrium size is normal. AORTIC VALVE The aortic valve is mildly thickened. The aortic valve is trileaflet. No aortic regurgitation is present. There is no aortic valvular stenosis. There is no aortic valvular vegetation. MITRAL VALVE Mitral annular calcification is mild. There is no evidence of mitral valve prolapse. There is no mitral valve stenosis. Mitral regurgitation is trace to mild. TRICUSPID VALVE The tricuspid valve is normal in structure. There is mild tricuspid regurgitation. Right ventricular systolic pressure is estimated at less than 30 mmHg. There is no pulmonary hypertension. There is no tricuspid valve prolapse or vegetation. There is no tricuspid valve stenosis. PULMONIC VALVE The pulmonary valve is normal in structure. There is no pulmonic valvular regurgitation. There is no pulmonic valvular stenosis. GREAT VESSELS The aortic root is normal in size. The IVC is normal in size and collapses >50% with inspiration. PERICARDIAL EFFUSION There is no pericardial effusion. There is no pleural effusion. <Conclusion> The left ventricle is normal size. Left ventricle systolic function is normal. The Ejection Fraction is >70%. The left ventricular diastolic function is normal. The right ventricle is normal size. The right ventricular systolic function is normal. The left atrium size is normal. The right atrium size is normal. Mitral regurgitation is trace to mild. There is mild tricuspid regurgitation.
--- NOTE | 2017-08-19 20:35 | CP.PCM.PN ---
Subjective - Date & Time of Evaluation Date of Evaluation: 08/19/17 Time of Evaluation: 10:00 - Subjective Subjective: clinically same Objective - Vital Signs/Intake and Output Vital Signs (last 24 hours): Temp Pulse Resp BP Pulse Ox 98 F 109 H 20 120/64 99 08/19/17 15:00 08/19/17 15:55 08/19/17 15:00 08/19/17 15:00 08/19/17 15:00 - Medications Medications: Current Medications Amlodipine Besylate (Norvasc) 10 mg PO DAILY [facility] Last Admin: 08/19/17 10:50 Dose: 10 mg Apixaban (Eliquis) 5 mg PO BID [facility] Last Admin: 08/19/17 17:07 Dose: 5 mg Aspirin (Ecotrin) 81 mg PO DAILY [facility] Last Admin: 08/19/17 10:50 Dose: 81 mg Folic Acid (Folic Acid) 1 mg PO STAT STA Stop: 08/19/17 20:26 Home Med (Patient's Own Medication) 1 tab PO DAILY [facility] Last Admin: 08/19/17 17:07 Dose: 1 tab Home Med (Patient's Own Medication) 1 tab PO BID [facility] Last Admin: 08/19/17 17:07 Dose: 1 tab Ciprofloxacin (Cipro 400mg/200ml Dsw) 400 mg in 200 mls @ 133 mls/hr IVPB Q12H [facility] PRN Reason: Protocol Oxycodone/Acetaminophen (Percocet 5/325 Mg Tab) 1 tab PO Q4H PRN Stop: 08/20/17 18:01 Last Admin: 08/19/17 13:46 Dose: 1 tab Pantoprazole Sodium (Protonix Ec Tab) 40 mg PO DAILY [facility] Last Admin: 08/19/17 10:50 Dose: 40 mg Pregabalin (Lyrica) 75 mg PO BID [facility] Last Admin: 08/19/17 17:07 Dose: 75 mg Rosuvastatin Calcium (Crestor) 5 mg PO HS [facility] Last Admin: 08/18/17 21:07 Dose: 5 mg Zolpidem Tartrate (Ambien) 5 mg PO HS [facility] Last Admin: 08/18/17 21:07 Dose: 5 mg - Labs Labs: 08/17/17 03:17 08/17/17 03:17 - Constitutional Appears: Well - Head Exam Head Exam: ATRAUMATIC, NORMAL INSPECTION, NORMOCEPHALIC - Eye Exam Eye Exam: EOMI, Normal appearance, PERRL Pupil Exam: NORMAL ACCOMODATION, PERRL - ENT Exam ENT Exam: Mucous Membranes Moist, Normal Exam - Neck Exam Neck Exam: Full ROM, Normal Inspection. absent: Lymphadenopathy - Respiratory Exam Respiratory Exam: Decreased Breath Sounds - Cardiovascular Exam Cardiovascular Exam: REGULAR RHYTHM, +S1, +S2 - GI/Abdominal Exam GI & Abdominal Exam: Soft, Diminished Bowel Sounds - Rectal Exam Rectal Exam: Deferred
[2017-08-19] MEDS: Ciprofloxacin 400mg/200ml D5W 400 MG/200 ML BAG IVPB SCH (22:47)
--- NOTE | 2017-08-19 23:33 | CARD ---
APPROVED REPORT EKG Measurement Heart [id number] [id number] <Conclusion> Normal sinus rhythm with sinus arrhythmia Normal ECG
[2017-08-20] MEDS: Oxycodone/Acetaminophen 5/325 mg Tab PO PRN ×3 (06:02→15:46)
--- NOTE | 2017-08-20 09:03 | CP.PCM.PN ---
Subjective - Date & Time of Evaluation Date of Evaluation: 08/20/17 Time of Evaluation: 07:00 - Subjective Subjective: PGY2 Medicine Note for Dr. Victorina Hinojosa Patient was seen and examined at bedside in the AM. Patient states he continues to have watery diarrhea and sometimes he has nausea. He states he is losing weight and would like more supplementation so he doesn't continue to decrease his weight. Objective - Vital Signs/Intake and Output Vital Signs (last 24 hours): Temp Pulse Resp BP Pulse Ox 98.3 F 70 20 102/60 97 08/20/17 05:00 08/20/17 07:00 08/20/17 05:00 08/20/17 05:00 08/20/17 05:00 - Medications Medications: Current Medications Amlodipine Besylate (Norvasc) 10 mg PO DAILY [facility] Last Admin: 08/19/17 10:50 Dose: 10 mg Apixaban (Eliquis) 5 mg PO BID [facility] Last Admin: 08/19/17 17:07 Dose: 5 mg Aspirin (Ecotrin) 81 mg PO DAILY [facility] Last Admin: 08/19/17 10:50 Dose: 81 mg Home Med (Patient's Own Medication) 1 tab PO DAILY [facility] Last Admin: 08/19/17 17:07 Dose: 1 tab Home Med (Patient's Own Medication) 1 tab PO BID [facility] Last Admin: 08/19/17 17:07 Dose: 1 tab Ciprofloxacin (Cipro 400mg/200ml Dsw) 400 mg in 200 mls @ 133 mls/hr IVPB Q12H [facility] PRN Reason: Protocol Last Admin: 08/19/17 22:47 Dose: 133 mls/hr Oxycodone/Acetaminophen (Percocet 5/325 Mg Tab) 1 tab PO Q4H PRN Stop: 08/20/17 18:01 Last Admin: 08/20/17 06:02 Dose: 1 tab Pantoprazole Sodium (Protonix Ec Tab) 40 mg PO DAILY [facility] Last Admin: 08/19/17 10:50 Dose: 40 mg Pregabalin (Lyrica) 75 mg PO BID [facility] Last Admin: 08/19/17 17:07 Dose: 75 mg Rosuvastatin Calcium (Crestor) 5 mg PO HS [facility] Last Admin: 08/19/17 22:46 Dose: 5 mg Zolpidem Tartrate (Ambien) 5 mg PO HS [facility] Last Admin: 08/19/17 22:46 Dose: 5 mg - Labs Labs: 08/17/17 03:17 08/17/17 03:17 - Constitutional Appears: No Acute Distress - Head Exam Head Exam: ATRAUMATIC, NORMAL INSPECTION - Eye Exam Eye Exam: EOMI, Normal appearance, PERRL Pupil Exam: NORMAL ACCOMODATION - ENT Exam ENT Exam: Mucous Membranes Moist - Respiratory Exam Respiratory Exam: Clear to Ausculation Bilateral, NORMAL BREATHING PATTERN - Cardiovascular Exam Cardiovascular Exam: REGULAR RHYTHM, +S1, +S2 - GI/Abdominal Exam GI & Abdominal Exam: Soft, Normal Bowel Sounds. absent: Tenderness - Extremities Exam Extremities Exam: Normal Inspection - Neurological Exam Neurological Exam: Alert, Awake, Oriented x3 - Psychiatric Exam Psychiatric exam: Normal Affect, Normal Mood - Skin Skin Exam: Normal Color Assessment and Plan - Assessment and Plan (Free Text) Assessment: 67 year old male with past medical history of HIV, HTN, HCV, C. diff and recent DVT (month ago) presented to the ER on 08/17/17 for TIA symptoms of left facial numbness which have resolved. Vomiting/Diarrhea - GI Consult: Dr. Germain --> help appreciated - possible EGD Saturday08/23/17 - Liquid Diet - Supplementations 2x per day - Cipro 400mg q12h started on 08/19/17 - Protonix 40mg daily - Florastor 250mg daily TIA symptoms - resolved - Neuro Consult: Dr. Osuna --> help appreciated - Imaging: * Head CT: No acute intracranial hemorrhage. Moderate chronic periventricular white matter ischemic changes. Moderate volume loss. * Carotid Doppler: RIGHT: Duplex scan does not suggest hemodynamically significant stenosis of the right extracranial carotid arteries. LEFT: Duplex scan does not suggest hemodynamically significant stenosis of the left extracranial carotid arteries. * Brain MRI: Appropriate age related neuro degenerative changes are appreciated concordant with the patient's age. No mass effect or acute/ subacute brain infarction identified. No definitive intracranial hemorrhage identified. * ECHO: EF >70%; mitral regurgitation is trace to mild; there is mild tricuspid regurgitation; please see full report. - Aspirin 81mg daily History of DVT - Hem/Onc Consult: Dr. Tapia --> help appreciated - LE doppler (08/17/17): negative - Chest CT: negative for PE - Eliquis 5mg bid - held - Heparin SC q8h till 08/22/17 History of HIV - HAART Therapy History of HTN - Norvasc 10mg daily - EKG: NSR History of HLD - Crestor 5mg daily Prophylaxis - Eliquis 5mg po bid - held - Heparin SC q8h till 08/22/17 - Protonix 40mg daily All orders and management per Dr. Victorina Hinojosa
[2017-08-20] MEDS: Saccharomyces Boulardi 250 mg Cap PO SCH (09:26)
[2017-08-20] MEDS: Pantoprazole 40 mg EC Tab PO SCH (09:26)
[2017-08-20] MEDS: MESALAMINE 800 MG PO SCH ×2 (09:32→17:18)
[2017-08-20] MEDS: Ciprofloxacin 400mg/200ml D5W 400 MG/200 ML BAG IVPB SCH ×2 (09:34→21:33)
--- NOTE | 2017-08-20 09:41 | CP.PCM.CON ---
<WilliampaigesadiYakov - Last Filed: 08/20/17 10:08> History of Present Illness - History of Present Illness History of Present Illness: GI Fellow PGY4, Consult note. Ashkan Carbajal is a 67yo pleasant AA M with history of HIV, ulcerative colitis, HCV, C. diff and recent DVT on eliquis who presented initially for TIA symptoms of left facial numbness. We were consulted for vomiting and diarrhea. Patient admits vomiting and diarrhea x3-4 days. These episodes occur 3-4x per day associated with food. He denies hematemesis or melena/hematochezia. He admits his bowel movements are watery and begin within 2 hours of eating. He was given zofran last night which has helped. He admits abdominal pain associated with his bowel movements. The pain is in both of his lower abdominal quadrants, 7/10 at the worst, now 3/10. He has a sense of fullness and urgency that precedes each bowel movement. It has been relieved with pain medications. He admits weight loss over the last few weeks after discontinuing megace. He denies fever. PMHx - Ulcerative colitis: Approximately 10yrs duration. Taking asacol BID. He does not know his GI docs name. Denies knowledge of C. diff or HCV but serology positive on previous admissions. HIV: he states he is compliant with HIV meds and sees Dr. Tk Hung who Rx most of his medicaitons. PSHx - Colonosocpy 2 months ago for rectal bleeding. He states there was "bruising" and evidence of bleeding in his "lower bowels". Multiple orthopedic procedures. Denies abdominal surgeries. SocHx: Drinks 12oz wine occasionally, not everyday. Quit smoking 3 months ago but previous heavy smoker. 12pt ROS negative except for as in HPI. Past Patient History - Infectious Disease Hx of Infectious Diseases: None - Tetanus Immunizations Tetanus Immunization: Unknown - Past Medical History & Family History Past Medical History?: Yes - Past Social History Smoking Status: Heavy Smoker > 10 Cigarettes Daily - CARDIAC Hx Hypertension: Yes - PULMONARY Hx Asthma: Yes Hx Bronchitis: Yes - NEUROLOGICAL HX Cerebrovascular Accident: No - HEMATOLOGICAL/ONCOLOGICAL Hx Hepatitis B: Yes - MUSCULOSKELETAL/RHEUMATOLOGICAL Hx Falls: No - GASTROINTESTINAL Hx Colitis: Yes - PSYCHIATRIC Hx Substance Use: No - SURGICAL HISTORY Hx Surgeries: Yes Hx Orthopedic Surgery: Yes (right ankle, left hip replacement, neck surgery) Other/Comment: right knee sx. 14 screws to left ankle. left hip replacement - ANESTHESIA Hx Anesthesia: Yes Meds Allergies/Adverse Reactions: Allergies Allergy/AdvReac Type Severity Reaction Status Date / Time No Known Allergies Allergy Verified 08/17/17 02:38 - Medications Medications: Current Medications Amlodipine Besylate (Norvasc) 10 mg PO DAILY [facility] Last Admin: 08/19/17 10:50 Dose: 10 mg Apixaban (Eliquis) 5 mg PO BID [facility] Last Admin: 08/19/17 17:07 Dose: 5 mg Aspirin (Ecotrin) 81 mg PO DAILY [facility] Last Admin: 08/19/17 10:50 Dose: 81 mg Home Med (Patient's Own Medication) 1 tab PO DAILY [facility] Last Admin: 08/19/17 17:07 Dose: 1 tab Home Med (Patient's Own Medication) 1 tab PO BID [facility] Last Admin: 08/19/17 17:07 Dose: 1 tab Ciprofloxacin (Cipro 400mg/200ml Dsw) 400 mg in 200 mls @ 133 mls/hr IVPB Q12H [facility] PRN Reason: Protocol Last Admin: 08/19/17 22:47 Dose: 133 mls/hr Oxycodone/Acetaminophen (Percocet 5/325 Mg Tab) 1 tab PO Q4H PRN Stop: 08/20/17 18:01 Last Admin: 08/20/17 06:02 Dose: 1 tab Pantoprazole Sodium (Protonix Ec Tab) 40 mg PO DAILY [facility] Last Admin: 08/19/17 10:50 Dose: 40 mg Pregabalin (Lyrica) 75 mg PO BID [facility] Last Admin: 08/19/17 17:07 Dose: 75 mg Rosuvastatin Calcium (Crestor) 5 mg PO [facility] Last Admin: 08/19/17 22:46 Dose: 5 mg Saccharomyces Boulardii (Florastor) 250 mg PO DAILY [facility] Zolpidem Tartrate (Ambien) 5 mg PO HS [facility] Last Admin: 08/19/17 22:46 Dose: 5 mg Physical Exam - Constitutional Appears: Non-toxic, No Acute Distress - Head Exam Head Exam: ATRAUMATIC, NORMAL INSPECTION, NORMOCEPHALIC - Eye Exam Eye Exam: EOMI, Normal appearance, PERRL - ENT Exam ENT Exam: Mucous Membranes Moist, Normal Exam Additional comments: No oral lesions - Respiratory Exam Respiratory Exam: NORMAL BREATHING PATTERN. absent: Respiratory Distress, Stridor - Cardiovascular Exam Cardiovascular Exam: REGULAR RHYTHM. absent: Tachycardia - GI/Abdominal Exam GI & Abdominal Exam: Soft, Tenderness. absent: Organomegaly, Pulsatile Mass, Rebound, Rigid Additional comments: Mildly TTP in right and left lower quadrants - Extremities Exam Extremities exam: Positive for: normal inspection. Negative for: calf tenderness, pedal edema - Neurological Exam Neurological exam: Alert, CN II-XII Intact, Oriented x3 - Psychiatric Exam Psychiatric exam: Normal Affect, Normal Mood - Skin Skin Exam: Dry, Intact, Normal Color Results - Vital Signs Recent Vital Signs: Last Vital Signs Temp 98.0 F 08/20/17 07:00 Pulse 64 08/20/17 07:00 Resp 18 08/20/17 07:00 BP 102/56 L 08/20/17 07:00 Pulse Ox 98 08/20/17 07:00 - Labs Result Diagrams: 08/17/17 03:17 08/17/17 03:17 Labs: Laboratory Results - last 24 hr 08/18/17 08/19/17 08/19/17 06:53 11:04 11:04 Total Protein (PEP) 6.4 Homocysteine 22.3 H Free T4 0.68 L TSH 3rd Generation 0.56 RPR 08/19/17 11:04 Total Protein (PEP) Homocysteine Free T4 TSH 3rd Generation RPR Nonreactive Assessment & Plan - Assessment and Plan (Free Text) Assessment: 67yo AAM with history of ulcerative colitis, HIV, c.diff, and HCV who initially presented with TIA symptoms now with acute vomiting and diarrhea likely due to infectious etiology. Acute diarrhea - Immunocompromised host. DDx includes GE, c.diff, other infectious etiology including CMV depending on HIV status Ulcerative colitis, chronic Weight loss Chronic Anemia, non microcytic HIV HCV - reactive serology 2013 DVT on Eliquis TIA Hx of C.diff - Positive result 2016. Plan: -Continue supportive care -Repeat CBC and CMP -Order C. Diff study and stool culture -Request records from [facility] -Call primary care for further understanding of patient's medical history -Change diet to full liquid while n/v ongoing -Agree with Zofran as needed -Consider EGD for weight loss in setting of chronic smoker and anemia. Will need to discuss Eliquis with primary if we can hold for potential EGD . <Ron Germain Y - Last Filed: 08/20/17 10:49> Meds - Medications Medications: Current Medications Amlodipine Besylate (Norvasc) 10 mg PO DAILY [facility] Last Admin: 08/20/17 09:26 Dose: 10 mg Apixaban (Eliquis) 5 mg PO BID [facility] Last Admin: 08/20/17 09:26 Dose: 5 mg Aspirin (Ecotrin) 81 mg PO DAILY [facility] Last Admin: 08/20/17 09:26 Dose: 81 mg Home Med (Patient's Own Medication) 1 tab PO DAILY [facility] Last Admin: 08/20/17 09:31 Dose: 1 tab Home Med (Patient's Own Medication) 1 tab PO BID [facility] Last Admin: 08/20/17 09:32 Dose: 1 tab Ciprofloxacin (Cipro 400mg/200ml Dsw) 400 mg in 200 mls @ 133 mls/hr IVPB Q12H [facility] PRN Reason: Protocol Last Admin: 08/20/17 09:34 Dose: 133 mls/hr Oxycodone/Acetaminophen (Percocet 5/325 Mg Tab) 1 tab PO Q4H PRN Stop: 08/20/17 18:01 Last Admin: 08/20/17 10:19 Dose: 1 tab Pantoprazole Sodium (Protonix Ec Tab) 40 mg PO DAILY [facility] Last Admin: 08/20/17 09:26 Dose: 40 mg Pregabalin (Lyrica) 75 mg PO BID [facility] Last Admin: 08/20/17 09:31 Dose: 75 mg Rosuvastatin Calcium (Crestor) 5 mg PO [facility] Last Admin: 08/19/17 22:46 Dose: 5 mg Saccharomyces Boulardii (Florastor) 250 mg PO DAILY [facility] Last Admin: 08/20/17 09:26 Dose: 250 mg Zolpidem Tartrate (Ambien) 5 mg PO [facility] Last Admin: 08/19/17 22:46 Dose: 5 mg Results - Vital Signs Recent Vital Signs: Last Vital Signs Temp 98.0 F 08/20/17 07:00 Pulse 64 08/20/17 07:00 Resp 18 08/20/17 07:00 BP 102/56 L 08/20/17 07:00 Pulse Ox 98 08/20/17 07:00 - Labs Result Diagrams: 08/17/17 03:17 08/17/17 03:17 Labs: Laboratory Results - last 24 hr 08/18/17 08/19/17 08/19/17 06:53 11:04 11:04 Total Protein (PEP) 6.4 Homocysteine 22.3 H Free T4 0.68 L TSH 3rd Generation 0.56 RPR 08/19/17 11:04 Total Protein (PEP) Homocysteine Free T4 TSH 3rd Generation RPR Nonreactive Attending/Attestation - Attestation I have personally seen and examined this patient.: Yes I have fully participated in the care of the patient.: Yes I have reviewed all pertinent clinical information: Yes Notes (Text): 08/20/17 10:39 I have seen and examined patient with GI fellow. Agree with above documentation with the following additions. In brief, this is a 67 year old male with history of HIV on HAART, ?ulcerative colitis, DVT on eliquis, HCV who initially presented to hospital with complaint of left sided facial droop and numbness. He is currently undergoing neurologic workup, GI called for evaluation of vomiting and diarrhea. He claims that symptoms started 3-4 days ago during same time as facial numbness began, prior to this he was in usual state of health. He describes having epigastric abdominal pain, 7/10 intensity that is worse following meal consumption. He also endorses having non-bloody emesis and loose brown diarrhea following attempted meal consumption. He denies sick contacts, recent travel, or antibiotic use. He does endorse an unintentional weight loss of nearly 10 pounds over the past 6 months. He claims to have been diagnosed with "colitis" several years ago and is maintained on oral Asacol but is not able to provide much more information. He had a colonoscopy 2 months ago at [facility] which was normal as per patient and he was asked to repeat test in 3 years, no prior EGD. Review of vitals from today are normal. Family history: reviewed, patient denies history of GI malignancies HIV on HAART ?UC HCV DVT on eliquis TIA Weight loss - Liquid diet as tolerated - Continue with anti-emetic therapy PRN - Obtain stool studies (culture, O/P, c-difficile) - Obtain repeat CBC, CMP, no bloodwork since 08/17 - Follow up neurology recommendations - Obtain prior endoscopy report from [facility] - Will continue with conservative care for the time being and observation. Discussed with Dr. Tapia, will temporarily hold Eliquis in the event that patient requires EGD given anemia and weight loss in setting of abdominal pain and vomiting. Will continue to monitor patient clinical course.
[2017-08-20 11:14] LABS: EOS # 0.3 K/uL (0.0-0.7); EOS % 6.2 % (0.0-4.0); HEMOGLOBIN 11.3 g/dL (12.0-18.0); LYMPH # 1.9 K/uL (1.0-4.3); LYMPH % 37.7 % (20.0-40.0); MEAN CELL VOLUME 94.5 fL (80.0-94.0); MEAN CORPUSCULAR HEMOGLOBIN 32.3 pg (27.0-31.0); MEAN CORPUSCULAR HGB CONC 34.1 g/dL (33.0-37.0); MEAN PLATELET VOLUME 9.5 fL (7.2-11.7); MONO # 0.5 K/uL (0.0-0.8); MONO % 9.2 % (0.0-10.0); NEUT # 2.3 K/uL (1.8-7.0); NEUT % 45.9 % (50.0-75.0); NRBC % 0.2 % (0.0-2.0); RBC 3.49 Mil/uL (4.40-5.90); RED CELL DISTRIBUTION WIDTH 13.7 % (11.5-14.5)
[2017-08-20 12:03] LABS: ALB/GLOB RATIO 1.1 (1.0-2.1); ALT/SGPT 23 U/L (21-72); AST/SGOT 26 U/L (17-59); BLOOD UREA NITROGEN 17 mg/dL (9-20); CALCIUM 9.5 mg/dl (8.6-10.4); GFR AFRICAN-AMERICAN > 60; GFR NON-AFRICAN AMERICAN > 60
--- NOTE | 2017-08-20 12:13 | VASCLAB ---
PROCEDURE: HISTORY: Left sided numbness COMPARISON: No prior. TECHNIQUE: Grayscale and duplex Doppler evaluation of the cervical carotid and vertebral arteries were performed. The common carotid, carotid bifurcations and cervical Internal Carotid Artery (ICA) and proximal External Carotid Artery (ECA) were evaluated. The vertebral arteries were evaluated for gross patency and flow direction. Report prepared by CHRISTOPHER Pettit FINDINGS: RIGHT CAROTID ARTERIES: 1. Common Carotid Artery: No significant focal plaque formation of the right common carotid artery. Maximum Peak Systolic velocity: 122 cm/sec: End-diastolic velocity 27 cm/sec. 2. Carotid Bifurcation: Calcific plaque formation. Maximum Peak Systolic velocity: 75 cm/sec: End-diastolic velocity 17 cm/sec. 3. Internal Carotid Artery: Plaque description: Calcific 3.1. Proximal Segment: Peak systolic velocity 67 cm/sec: End-diastolic velocity 22 cm/sec - % stenosis 0-15% 3.2. Middle Segment: Peak systolic velocity 47 cm/sec: End-diastolic velocity 16 cm/sec - % stenosis 0-15% 3.3. Distal Segment: Peak systolic velocity 46 cm/sec: End-diastolic velocity 154 cm/sec - % stenosis 0-15% 4. External Carotid Artery: Calcific plaque. Peak systolic velocity 82 cm/sec 5. ICA/CCA Ratio: 0.8 LEFT CAROTID ARTERIES: 1. Common Carotid Artery: No significant focal plaque formation of the left common carotid artery. Maximum Peak Systolic velocity: 118 cm/sec: End-diastolic velocity 25 cm/sec. 2. Carotid Bifurcation: plaque formation. Maximum Peak Systolic velocity: 67 cm/sec: End-diastolic velocity 12 cm/sec. 3. Internal Carotid Artery: Plaque description: 3.1. Proximal Segment: Peak systolic velocity 55 cm/sec: End-diastolic velocity 21 cm/sec - % stenosis 0-15% 3.2. Middle Segment: Peak systolic velocity 71 cm/sec: End-diastolic velocity 26 cm/sec - % stenosis 0-15% 3.3. Distal Segment: Peak systolic velocity 53 cm/sec: End-diastolic velocity 21 cm/sec - % stenosis 0-15% 4. External Carotid Artery: No significant focal plaque formation. Peak systolic velocity 98 cm/sec 5. ICA/CCA Ratio: 0.7 VERTEBRAL ARTERIES: 1. Right Vertebral Artery: The right vertebral artery flow direction is antegrade. 2. Left Vertebral Artery: The left vertebral artery flow direction is antegrade. OTHER FINDINGS: IMPRESSION: RIGHT: Duplex scan does not suggest hemodynamically significant stenosis of the right extracranial carotid arteries. LEFT: Duplex scan does not suggest hemodynamically significant stenosis of the left extracranial carotid arteries.
--- NOTE | 2017-08-20 12:44 | PN ---
DATE: 08/20/2017 TIME OF EVALUATION: 07:15 a.m. NEUROLOGICAL PROBLEM: Right subcortical dysfunction manifesting with left hemiparesis as transient ischemic attack. VITAL SIGNS: Blood pressure 102/60 with mean arterial pressure of 74, respiratory 18, temperature afebrile. Rest of the examination, which is unchanged, compared with yesterday's exam. The current examination is same as yesterday's exam. The patient seems to be normal. No new symptoms except abdominal discomfort. His facial numbness and arm weakness all disappeared. WORKUP: 1. MRI of the brain cannot be through the computer. 2. Getting out of bed and physical therapy should be entertained as early as possible. 3. Keep the mean arterial pressure around 100, at present is somewhat low for him. Avoid sedative for his sleep including Ambien. Continue aspirin for now and diabetic control. If medically stable, the patient can be discharged and should have followup visit with me as outpatient. Pal Osuna MD
--- NOTE | 2017-08-20 13:47 | MRI ---
PROCEDURE: MRI BRAIN WITHOUT CONTRAST HISTORY: left face numbness COMPARISON: Noncontrast head CT 08/17/2017. TECHNIQUE: Multiplanar, multisequence MR images of the brain were obtained without intravenous contrast enhancement. FINDINGS: HEMORRHAGE: None DWI: No evidence of an acute or early subacute infarction. BRAIN PARENCHYMA: Good corticomedullary differentiation is seen. Proportional, diffuse expansion of the ventriculosulcal and cisternal spaces is appreciated with white matter signal changes compatible with diffuse cerebral atrophy and chronic microangiopathy. Chronic microangiopathy also affects the faheem. No suspicious extra-axial fluid collection is identified and the midline brain anatomy appears grossly nonfocal as imaged. There is no mass effect throughout. VENTRICLES: Unremarkable. No hydrocephalus. CRANIUM: Unremarkable. ORBITS: Grossly unremarkable. PARANASAL SINUSES/MASTOIDS: Clear VASCULAR SYSTEM: Skull base flow voids intact. OTHER FINDINGS: None. IMPRESSION: Appropriate age related neuro degenerative changes are appreciated concordant with the patient's age. No mass effect or acute/ subacute brain infarction identified. No definitive intracranial hemorrhage identified.
--- NOTE | 2017-08-20 15:37 | CP.PCM.PN ---
Subjective - Date & Time of Evaluation Date of Evaluation: 08/20/17 Time of Evaluation: 09:15 - Subjective Subjective: clinically same Objective - Vital Signs/Intake and Output Vital Signs (last 24 hours): Temp Pulse Resp BP Pulse Ox 98.0 F 88 18 178/83 H 98 08/20/17 07:00 08/20/17 14:17 08/20/17 07:00 08/20/17 13:15 08/20/17 14:17 - Medications Medications: Current Medications Amlodipine Besylate (Norvasc) 10 mg PO DAILY [facility] Last Admin: 08/20/17 09:26 Dose: 10 mg Apixaban (Eliquis) 5 mg PO BID [facility] Last Admin: 08/20/17 09:26 Dose: 5 mg Aspirin (Ecotrin) 81 mg PO DAILY [facility] Last Admin: 08/20/17 09:26 Dose: 81 mg Heparin Sodium (Porcine) (Heparin) 5,000 units SC Q8 [facility] Stop: 08/23/17 00:00 Home Med (Patient's Own Medication) 1 tab PO DAILY [facility] Last Admin: 08/20/17 09:31 Dose: 1 tab Home Med (Patient's Own Medication) 1 tab PO BID [facility] Last Admin: 08/20/17 09:32 Dose: 1 tab Ciprofloxacin (Cipro 400mg/200ml Dsw) 400 mg in 200 mls @ 133 mls/hr IVPB Q12H [facility] PRN Reason: Protocol Last Admin: 08/20/17 09:34 Dose: 133 mls/hr Oxycodone/Acetaminophen (Percocet 5/325 Mg Tab) 1 tab PO Q4H PRN Stop: 08/20/17 18:01 Last Admin: 08/20/17 10:19 Dose: 1 tab Pantoprazole Sodium (Protonix Ec Tab) 40 mg PO DAILY [facility] Last Admin: 08/20/17 09:26 Dose: 40 mg Pregabalin (Lyrica) 75 mg PO BID [facility] Last Admin: 08/20/17 09:31 Dose: 75 mg Rosuvastatin Calcium (Crestor) 5 mg PO HS [facility] Last Admin: 08/19/17 22:46 Dose: 5 mg Saccharomyces Boulardii (Florastor) 250 mg PO DAILY [facility] Last Admin: 08/20/17 09:26 Dose: 250 mg Zolpidem Tartrate (Ambien) 5 mg PO HS [facility] Last Admin: 08/19/17 22:46 Dose: 5 mg - Labs Labs: 08/20/17 10:58 08/20/17 10:58 - Constitutional Appears: Well - Head Exam Head Exam: ATRAUMATIC, NORMAL INSPECTION, NORMOCEPHALIC - Eye Exam Eye Exam: EOMI, Normal appearance, PERRL Pupil Exam: NORMAL ACCOMODATION, PERRL - ENT Exam ENT Exam: Mucous Membranes Moist, Normal Exam - Neck Exam Neck Exam: Full ROM, Normal Inspection. absent: Lymphadenopathy - Respiratory Exam Respiratory Exam: Decreased Breath Sounds - Cardiovascular Exam Cardiovascular Exam: REGULAR RHYTHM, +S1, +S2 - GI/Abdominal Exam GI & Abdominal Exam: Soft, Diminished Bowel Sounds - Rectal Exam Rectal Exam: Deferred
[2017-08-20] MEDS ORDERED: Multiple Vitamins Tab PO ONE (17:07)
[2017-08-21] MEDS: Oxycodone/Acetaminophen 5/325 mg Tab PO PRN ×4 (00:36→15:37)
--- NOTE | 2017-08-21 02:21 | CP.PCM.PN ---
Subjective - Date & Time of Evaluation Date of Evaluation: 08/18/17 Time of Evaluation: 12:00 - Subjective Subjective: Has stomach pain. Objective - Vital Signs/Intake and Output Vital Signs (last 24 hours): Temp Pulse Resp BP Pulse Ox 98.1 F 86 20 110/69 97 08/20/17 23:05 08/20/17 23:30 08/20/17 23:05 08/20/17 23:05 08/20/17 23:05 - Medications Medications: Current Medications Amlodipine Besylate (Norvasc) 10 mg PO DAILY [facility] Last Admin: 08/20/17 09:26 Dose: 10 mg Apixaban (Eliquis) 5 mg PO BID [facility] Last Admin: 08/20/17 09:26 Dose: 5 mg Aspirin (Ecotrin) 81 mg PO DAILY [facility] Last Admin: 08/20/17 09:26 Dose: 81 mg Heparin Sodium (Porcine) (Heparin) 5,000 units SC Q8 [facility] Stop: 08/23/17 00:00 Last Admin: 08/20/17 21:37 Dose: 5,000 units Home Med (Patient's Own Medication) 1 tab PO DAILY [facility] Last Admin: 08/20/17 09:31 Dose: 1 tab Home Med (Patient's Own Medication) 1 tab PO BID [facility] Last Admin: 08/20/17 17:18 Dose: 1 tab Ciprofloxacin (Cipro 400mg/200ml Dsw) 400 mg in 200 mls @ 133 mls/hr IVPB Q12H [facility] PRN Reason: Protocol Last Admin: 08/20/17 21:33 Dose: 133 mls/hr Multivitamins (Hexavitamin) 1 tab PO DAILY [facility] Oxycodone/Acetaminophen (Percocet 5/325 Mg Tab) 1 tab PO Q4H PRN PRN Reason: Pain, severe (8-10) Stop: 08/24/17 00:17 Last Admin: 08/21/17 00:36 Dose: 1 tab Pantoprazole Sodium (Protonix Ec Tab) 40 mg PO DAILY [facility] Last Admin: 08/20/17 09:26 Dose: 40 mg Pregabalin (Lyrica) 75 mg PO BID [facility] Last Admin: 08/20/17 17:18 Dose: 75 mg Rosuvastatin Calcium (Crestor) 5 mg PO [facility] Last Admin: 08/20/17 21:32 Dose: 5 mg Saccharomyces Boulardii (Florastor) 250 mg PO DAILY [facility] Last Admin: 08/20/17 09:26 Dose: 250 mg Zolpidem Tartrate (Ambien) 5 mg PO [facility] Last Admin: 08/20/17 23:01 Dose: 5 mg - Labs Labs: 08/20/17 10:58 08/20/17 10:58 - Head Exam Head Exam: ATRAUMATIC - Eye Exam Eye Exam: Normal appearance - ENT Exam ENT Exam: Mucous Membranes Dry - Respiratory Exam Respiratory Exam: NORMAL BREATHING PATTERN - Cardiovascular Exam Cardiovascular Exam: +S1, +S2 - GI/Abdominal Exam GI & Abdominal Exam: Normal Bowel Sounds - Extremities Exam Extremities Exam: Pedal Edema Assessment and Plan (1) DVT (deep venous thrombosis) Assessment & Plan: unprovoked RLE DVT dx 07/2017 on Eliquis Status: Acute (2) Anemia Assessment & Plan: 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
--- NOTE | 2017-08-21 02:24 | CP.PCM.PN ---
Subjective - Date & Time of Evaluation Date of Evaluation: 08/19/17 Time of Evaluation: 20:00 - Subjective Subjective: Feeling better Objective - Vital Signs/Intake and Output Vital Signs (last 24 hours): Temp Pulse Resp BP Pulse Ox 98.1 F 86 20 110/69 97 08/20/17 23:05 08/20/17 23:30 08/20/17 23:05 08/20/17 23:05 08/20/17 23:05 - Medications Medications: Current Medications Amlodipine Besylate (Norvasc) 10 mg PO DAILY [facility] Last Admin: 08/20/17 09:26 Dose: 10 mg Apixaban (Eliquis) 5 mg PO BID [facility] Last Admin: 08/20/17 09:26 Dose: 5 mg Aspirin (Ecotrin) 81 mg PO DAILY [facility] Last Admin: 08/20/17 09:26 Dose: 81 mg Heparin Sodium (Porcine) (Heparin) 5,000 units SC Q8 [facility] Stop: 08/23/17 00:00 Last Admin: 08/20/17 21:37 Dose: 5,000 units Home Med (Patient's Own Medication) 1 tab PO DAILY [facility] Last Admin: 08/20/17 09:31 Dose: 1 tab Home Med (Patient's Own Medication) 1 tab PO BID [facility] Last Admin: 08/20/17 17:18 Dose: 1 tab Ciprofloxacin (Cipro 400mg/200ml Dsw) 400 mg in 200 mls @ 133 mls/hr IVPB Q12H [facility] PRN Reason: Protocol Last Admin: 08/20/17 21:33 Dose: 133 mls/hr Multivitamins (Hexavitamin) 1 tab PO DAILY [facility] Oxycodone/Acetaminophen (Percocet 5/325 Mg Tab) 1 tab PO Q4H PRN PRN Reason: Pain, severe (8-10) Stop: 08/24/17 00:17 Last Admin: 08/21/17 00:36 Dose: 1 tab Pantoprazole Sodium (Protonix Ec Tab) 40 mg PO DAILY [facility] Last Admin: 08/20/17 09:26 Dose: 40 mg Pregabalin (Lyrica) 75 mg PO BID [facility] Last Admin: 08/20/17 17:18 Dose: 75 mg Rosuvastatin Calcium (Crestor) 5 mg PO HS [facility] Last Admin: 08/20/17 21:32 Dose: 5 mg Saccharomyces Boulardii (Florastor) 250 mg PO DAILY [facility] Last Admin: 08/20/17 09:26 Dose: 250 mg Zolpidem Tartrate (Ambien) 5 mg PO [facility] Last Admin: 08/20/17 23:01 Dose: 5 mg - Labs Labs: 08/20/17 10:58 08/20/17 10:58 - Head Exam Head Exam: ATRAUMATIC - Eye Exam Eye Exam: Normal appearance - ENT Exam ENT Exam: Mucous Membranes Dry - Respiratory Exam Respiratory Exam: NORMAL BREATHING PATTERN - Cardiovascular Exam Cardiovascular Exam: +S1, +S2 - GI/Abdominal Exam GI & Abdominal Exam: Normal Bowel Sounds - Extremities Exam Extremities Exam: Pedal Edema Assessment and Plan (1) DVT (deep venous thrombosis) Assessment & Plan: unprovoked RLE DVT dx 07/2017 on Eliquis Status: Acute (2) Anemia Assessment & Plan: 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
--- NOTE | 2017-08-21 02:27 | CP.PCM.PN ---
Subjective - Date & Time of Evaluation Date of Evaluation: 08/20/17 Time of Evaluation: 14:00 - Subjective Subjective: Feeling better Objective - Vital Signs/Intake and Output Vital Signs (last 24 hours): Temp Pulse Resp BP Pulse Ox 98.1 F 86 20 110/69 97 08/20/17 23:05 08/20/17 23:30 08/20/17 23:05 08/20/17 23:05 08/20/17 23:05 - Medications Medications: Current Medications Amlodipine Besylate (Norvasc) 10 mg PO DAILY [facility] Last Admin: 08/20/17 09:26 Dose: 10 mg Apixaban (Eliquis) 5 mg PO BID [facility] Last Admin: 08/20/17 09:26 Dose: 5 mg Aspirin (Ecotrin) 81 mg PO DAILY [facility] Last Admin: 08/20/17 09:26 Dose: 81 mg Heparin Sodium (Porcine) (Heparin) 5,000 units SC Q8 [facility] Stop: 08/23/17 00:00 Last Admin: 08/20/17 21:37 Dose: 5,000 units Home Med (Patient's Own Medication) 1 tab PO DAILY [facility] Last Admin: 08/20/17 09:31 Dose: 1 tab Home Med (Patient's Own Medication) 1 tab PO BID [facility] Last Admin: 08/20/17 17:18 Dose: 1 tab Ciprofloxacin (Cipro 400mg/200ml Dsw) 400 mg in 200 mls @ 133 mls/hr IVPB Q12H [facility] PRN Reason: Protocol Last Admin: 08/20/17 21:33 Dose: 133 mls/hr Multivitamins (Hexavitamin) 1 tab PO DAILY [facility] Oxycodone/Acetaminophen (Percocet 5/325 Mg Tab) 1 tab PO Q4H PRN PRN Reason: Pain, severe (8-10) Stop: 08/24/17 00:17 Last Admin: 08/21/17 00:36 Dose: 1 tab Pantoprazole Sodium (Protonix Ec Tab) 40 mg PO DAILY [facility] Last Admin: 08/20/17 09:26 Dose: 40 mg Pregabalin (Lyrica) 75 mg PO BID [facility] Last Admin: 08/20/17 17:18 Dose: 75 mg Rosuvastatin Calcium (Crestor) 5 mg PO HS [facility] Last Admin: 08/20/17 21:32 Dose: 5 mg Saccharomyces Boulardii (Florastor) 250 mg PO DAILY [facility] Last Admin: 08/20/17 09:26 Dose: 250 mg Zolpidem Tartrate (Ambien) 5 mg PO [facility] Last Admin: 08/20/17 23:01 Dose: 5 mg - Labs Labs: 08/20/17 10:58 08/20/17 10:58 - Head Exam Head Exam: ATRAUMATIC - Eye Exam Eye Exam: Normal appearance - ENT Exam ENT Exam: Mucous Membranes Dry - Respiratory Exam Respiratory Exam: NORMAL BREATHING PATTERN - Cardiovascular Exam Cardiovascular Exam: +S1, +S2 - GI/Abdominal Exam GI & Abdominal Exam: Normal Bowel Sounds - Extremities Exam Extremities Exam: Pedal Edema Assessment and Plan (1) DVT (deep venous thrombosis) Assessment & Plan: unprovoked RLE DVT dx 07/2017 on Eliquis, okay to hold for endoscopy Status: Acute (2) Anemia Assessment & Plan: 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
[2017-08-21] MEDS: Ciprofloxacin 400mg/200ml D5W 400 MG/200 ML BAG IVPB SCH ×2 (10:01→21:50)
[2017-08-21] MEDS: Saccharomyces Boulardi 250 mg Cap PO SCH (10:01)
[2017-08-21] MEDS: Multiple Vitamins Tab PO SCH (10:02)
[2017-08-21] MEDS: MESALAMINE 800 MG PO SCH ×2 (10:03→17:32)
[2017-08-21] MEDS: Pantoprazole 40 mg EC Tab PO SCH (10:03)
--- NOTE | 2017-08-21 14:22 | CP.PCM.PN ---
Subjective - Date & Time of Evaluation Date of Evaluation: 08/21/17 Time of Evaluation: 09:40 - Subjective Subjective: clinically same Objective - Vital Signs/Intake and Output Vital Signs (last 24 hours): Temp Pulse Resp BP Pulse Ox 98.6 F 97 H 20 110/71 99 08/21/17 07:00 08/21/17 07:00 08/21/17 07:00 08/21/17 07:00 08/21/17 07:00 Intake and Output: 08/21/17 08/21/17 06:59 18:59 Output Total 200 Balance -200 - Medications Medications: Current Medications Amlodipine Besylate (Norvasc) 10 mg PO DAILY [facility] Last Admin: 08/21/17 10:03 Dose: 10 mg Apixaban (Eliquis) 5 mg PO BID [facility] Last Admin: 08/20/17 09:26 Dose: 5 mg Aspirin (Ecotrin) 81 mg PO DAILY [facility] Last Admin: 08/21/17 10:01 Dose: 81 mg Heparin Sodium (Porcine) (Heparin) 5,000 units SC Q8 [facility] Stop: 08/23/17 00:00 Last Admin: 08/21/17 13:27 Dose: 5,000 units Home Med (Patient's Own Medication) 1 tab PO DAILY [facility] Last Admin: 08/21/17 10:05 Dose: 1 tab Home Med (Patient's Own Medication) 1 tab PO BID [facility] Last Admin: 08/21/17 10:03 Dose: 1 tab Ciprofloxacin (Cipro 400mg/200ml Dsw) 400 mg in 200 mls @ 133 mls/hr IVPB Q12H [facility] PRN Reason: Protocol Last Admin: 08/21/17 10:01 Dose: 133 mls/hr Multivitamins (Hexavitamin) 1 tab PO DAILY [facility] Last Admin: 08/21/17 10:02 Dose: 1 tab Oxycodone/Acetaminophen (Percocet 5/325 Mg Tab) 1 tab PO Q4H PRN PRN Reason: Pain, severe (8-10) Stop: 08/24/17 00:17 Last Admin: 08/21/17 10:02 Dose: 1 tab Pantoprazole Sodium (Protonix Ec Tab) 40 mg PO DAILY [facility] Last Admin: 08/21/17 10:03 Dose: 40 mg Pregabalin (Lyrica) 75 mg PO BID [facility] Last Admin: 08/21/17 10:02 Dose: 75 mg Rosuvastatin Calcium (Crestor) 5 mg PO HS [facility] Last Admin: 08/20/17 21:32 Dose: 5 mg Saccharomyces Boulardii (Florastor) 250 mg PO DAILY [facility] Last Admin: 08/21/17 10:01 Dose: 250 mg Zolpidem Tartrate (Ambien) 5 mg PO [facility] Last Admin: 08/20/17 23:01 Dose: 5 mg - Labs Labs: 08/20/17 10:58 08/20/17 10:58 - Constitutional Appears: Well - Head Exam Head Exam: ATRAUMATIC, NORMAL INSPECTION, NORMOCEPHALIC - Eye Exam Eye Exam: EOMI, Normal appearance, PERRL Pupil Exam: NORMAL ACCOMODATION, PERRL - ENT Exam ENT Exam: Mucous Membranes Moist, Normal Exam - Neck Exam Neck Exam: Full ROM, Normal Inspection. absent: Lymphadenopathy - Respiratory Exam Respiratory Exam: Decreased Breath Sounds - Cardiovascular Exam Cardiovascular Exam: REGULAR RHYTHM, +S1, +S2 - GI/Abdominal Exam GI & Abdominal Exam: Soft, Diminished Bowel Sounds - Rectal Exam Rectal Exam: Deferred
--- NOTE | 2017-08-21 16:05 | CP.PCM.CON ---
<Marv Hinojosa - Last Filed: 08/21/17 16:01> History of Present Illness - History of Present Illness History of Present Illness: PGY 5 GI Follow-up Pt seen and examined bedside emesis x1 during BM yesterday +appetite denies any nausea and vomiting ROS:12 point ROS conducted, neg other than above Past Patient History - Infectious Disease Hx of Infectious Diseases: None - Tetanus Immunizations Tetanus Immunization: Unknown - Past Medical History & Family History Past Medical History?: Yes - Past Social History Smoking Status: Heavy Smoker > 10 Cigarettes Daily - CARDIAC Hx Hypertension: Yes - PULMONARY Hx Asthma: Yes Hx Bronchitis: Yes - NEUROLOGICAL HX Cerebrovascular Accident: No - HEMATOLOGICAL/ONCOLOGICAL Hx Hepatitis B: Yes - MUSCULOSKELETAL/RHEUMATOLOGICAL Hx Falls: No - GASTROINTESTINAL Hx Colitis: Yes - PSYCHIATRIC Hx Substance Use: No - SURGICAL HISTORY Hx Surgeries: Yes Hx Orthopedic Surgery: Yes (right ankle, left hip replacement, neck surgery) Other/Comment: right knee sx. 14 screws to left ankle. left hip replacement - ANESTHESIA Hx Anesthesia: Yes Meds Allergies/Adverse Reactions: Allergies Allergy/AdvReac Type Severity Reaction Status Date / Time No Known Allergies Allergy Verified 08/17/17 02:38 - Medications Medications: Current Medications Amlodipine Besylate (Norvasc) 10 mg PO DAILY [facility] Last Admin: 08/21/17 10:03 Dose: 10 mg Apixaban (Eliquis) 5 mg PO BID [facility] Last Admin: 08/20/17 09:26 Dose: 5 mg Aspirin (Ecotrin) 81 mg PO DAILY [facility] Last Admin: 08/21/17 10:01 Dose: 81 mg Heparin Sodium (Porcine) (Heparin) 5,000 units SC Q8 [facility] Stop: 08/23/17 00:00 Last Admin: 08/21/17 13:27 Dose: 5,000 units Home Med (Patient's Own Medication) 1 tab PO DAILY [facility] Last Admin: 08/21/17 10:05 Dose: 1 tab Home Med (Patient's Own Medication) 1 tab PO BID [facility] Last Admin: 08/21/17 10:03 Dose: 1 tab Ciprofloxacin (Cipro 400mg/200ml Dsw) 400 mg in 200 mls @ 133 mls/hr IVPB Q12H [facility] PRN Reason: Protocol Last Admin: 08/21/17 10:01 Dose: 133 mls/hr Multivitamins (Hexavitamin) 1 tab PO DAILY [facility] Last Admin: 08/21/17 10:02 Dose: 1 tab Oxycodone/Acetaminophen (Percocet 5/325 Mg Tab) 1 tab PO Q4H PRN PRN Reason: Pain, severe (8-10) Stop: 08/24/17 00:17 Last Admin: 08/21/17 15:37 Dose: 1 tab Pantoprazole Sodium (Protonix Ec Tab) 40 mg PO DAILY [facility] Last Admin: 08/21/17 10:03 Dose: 40 mg Pregabalin (Lyrica) 75 mg PO BID [facility] Last Admin: 08/21/17 10:02 Dose: 75 mg Rosuvastatin Calcium (Crestor) 5 mg PO [facility] Last Admin: 08/20/17 21:32 Dose: 5 mg Saccharomyces Boulardii (Florastor) 250 mg PO DAILY [facility] Last Admin: 08/21/17 10:01 Dose: 250 mg Zolpidem Tartrate (Ambien) 5 mg PO [facility] Last Admin: 08/20/17 23:01 Dose: 5 mg Physical Exam - Constitutional Appears: Well, No Acute Distress - Head Exam Head Exam: ATRAUMATIC, NORMOCEPHALIC - Eye Exam Eye Exam: EOMI, Normal appearance Pupil Exam: NORMAL ACCOMODATION - ENT Exam ENT Exam: Mucous Membranes Moist, Normal Exam - Neck Exam Neck exam: Positive for: Normal Inspection - Respiratory Exam Respiratory Exam: Clear to Auscultation Bilateral, NORMAL BREATHING PATTERN. absent: Rhonchi, Wheezes, Respiratory Distress - Cardiovascular Exam Cardiovascular Exam: REGULAR RHYTHM, +S1, +S2 - GI/Abdominal Exam GI & Abdominal Exam: Normal Bowel Sounds, Soft. absent: Diminished Bowel Sounds , Distended, Guarding, Organomegaly, Rebound, Rigid - Extremities Exam Extremities exam: Negative for: joint swelling, pedal edema - Neurological Exam Neurological exam: Alert, Oriented x3 - Skin Skin Exam: Dry, Intact, Normal Color, Warm Results - Vital Signs Recent Vital Signs: Last Vital Signs Temp 98.6 F 08/21/17 07:00 Pulse 97 H 08/21/17 07:00 Resp 20 08/21/17 07:00 BP 110/71 08/21/17 07:00 Pulse Ox 99 08/21/17 07:00 - Labs Result Diagrams: 08/20/17 10:58 08/20/17 10:58 Labs: Laboratory Results - last 24 hr 08/18/17 08/20/17 06:53 06:00 Highland/Lambda Light Chain Free [place] Light Chains 47.2 H Free Lambda Light Chain 42.6 H Free [place]/Lambda Ratio 1.11 C. difficile Ag & Toxin Negative Assessment & Plan - Assessment and Plan (Free Text) Assessment: 67yo AAM with history of ulcerative colitis, HIV, c.diff, and HCV who initially presented with TIA symptoms now with acute vomiting and diarrhea likely due to infectious etiology. Acute diarrhea - Immunocompromised host. DDx includes GE, c.diff, other infectious etiology including CMV depending on HIV status Ulcerative colitis, chronic Weight loss Chronic Anemia, non microcytic HIV HCV - reactive serology 2013 DVT on Eliquis TIA Hx of C.diff - Positive result 2016. Plan: -Continue supportive care -Repeat CBC and CMP -Ordered C. Diff study and stool culture [place] [facility] [place] diet as tolerated -Agree with Zofran as needed -will make NPO after midnight for EGD tomorrow -eliquis stopped since yesterday D/W Dr. Villa . <Marisabel Villa - Last Filed: 08/21/17 16:31> Meds - Medications Medications: Current Medications Amlodipine Besylate (Norvasc) 10 mg PO DAILY [facility] Last Admin: 08/21/17 10:03 Dose: 10 mg Apixaban (Eliquis) 5 mg PO BID [facility] Last Admin: 08/20/17 09:26 Dose: 5 mg Aspirin (Ecotrin) 81 mg PO DAILY [facility] Last Admin: 08/21/17 10:01 Dose: 81 mg Heparin Sodium (Porcine) (Heparin) 5,000 units SC Q8 [facility] Stop: 08/23/17 00:00 Last Admin: 08/21/17 13:27 Dose: 5,000 units Home Med (Patient's Own Medication) 1 tab PO DAILY [facility] Last Admin: 08/21/17 10:05 Dose: 1 tab Home Med (Patient's Own Medication) 1 tab PO BID [facility] Last Admin: 08/21/17 10:03 Dose: 1 tab Ciprofloxacin (Cipro 400mg/200ml Dsw) 400 mg in 200 mls @ 133 mls/hr IVPB Q12H [facility] PRN Reason: Protocol Last Admin: 08/21/17 10:01 Dose: 133 mls/hr Multivitamins (Hexavitamin) 1 tab PO DAILY [facility] Last Admin: 08/21/17 10:02 Dose: 1 tab Oxycodone/Acetaminophen (Percocet 5/325 Mg Tab) 1 tab PO Q4H PRN PRN Reason: Pain, severe (8-10) Stop: 08/24/17 00:17 Last Admin: 08/21/17 15:37 Dose: 1 tab Pantoprazole Sodium (Protonix Ec Tab) 40 mg PO DAILY [facility] Last Admin: 08/21/17 10:03 Dose: 40 mg Pregabalin (Lyrica) 75 mg PO BID [facility] Last Admin: 08/21/17 10:02 Dose: 75 mg Rosuvastatin Calcium (Crestor) 5 mg PO HS [facility] Last Admin: 08/20/17 21:32 Dose: 5 mg Saccharomyces Boulardii (Florastor) 250 mg PO DAILY [facility] Last Admin: 08/21/17 10:01 Dose: 250 mg Zolpidem Tartrate (Ambien) 5 mg PO [facility] Last Admin: 08/20/17 23:01 Dose: 5 mg Results - Vital Signs Recent Vital Signs: Last Vital Signs Temp 98.2 F 08/21/17 16:08 Pulse 80 08/21/17 16:08 Resp 20 08/21/17 16:08 BP 101/62 08/21/17 16:08 Pulse Ox 99 08/21/17 16:08 - Labs Result Diagrams: 08/20/17 10:58 08/20/17 10:58 Labs: Laboratory Results - last 24 hr 08/18/17 08/20/17 06:53 06:00 [place]/Lambda Light Chain Free [place] Light Chains 47.2 H Free Lambda Light Chain 42.6 H Free [place]/Lambda Ratio 1.11 C. difficile Ag & Toxin Negative Attending/Attestation - Attestation I have personally seen and examined this patient.: Yes I have fully participated in the care of the patient.: Yes I have reviewed all pertinent clinical information: Yes Notes (Text): 08/21/17 16:19 Patient craig on GI rounds this am. This is a 67 year old M with history of ulcerative colitis diagnosed 10 years ago, HIV, HCV achieved SVR , DVT on eliquis (held yesterday) who initially presented with TIA symptoms now with acute vomiting and diarrhea likely due to infectious etiology. Stool infectious work up pending. Also with weight loss and [place] 2[place] [facility] [place] Currently on asacaol 800 mg po bid and was on asacol suppositories two weeks ago. He is scheduled for EGD in am with Dr Germain. Continue supportive care and diet as tolerated. NPO past midnight.
[2017-08-22] MEDS: Oxycodone/Acetaminophen 5/325 mg Tab PO PRN ×4 (06:28→19:59)
[2017-08-22] MEDS ORDERED: Lactated Ringer's 500 ML IV ONE ×2 (09:18)
[2017-08-22] MEDS ORDERED: Propofol 10 mg/ml Inj (20 ML) ONE (09:25)
--- NOTE | 2017-08-22 10:03 | CP.PCM.PN ---
Subjective - Date & Time of Evaluation Date of Evaluation: 08/22/17 Time of Evaluation: 10:00 - Subjective Subjective: Patient seen and examined, resting comfortably in bed. No acute events overnight. No vomiting over past 24 hours and tolerating PO liquids without difficulty. s/p EGD today showing mild gastritis and hiatal hernia. Objective - Vital Signs/Intake and Output Vital Signs (last 24 hours): Temp Pulse Resp BP Pulse Ox 98.2 F 68 19 113/47 L 100 08/22/17 08:00 08/22/17 09:27 08/22/17 09:27 08/22/17 09:27 08/22/17 09:27 Intake and Output: 08/22/17 08/22/17 06:59 18:59 Output Total 600 Balance -600 - Medications Medications: Current Medications Amlodipine Besylate (Norvasc) 10 mg PO DAILY [facility] Last Admin: 08/21/17 10:03 Dose: 10 mg Apixaban (Eliquis) 5 mg PO BID [facility] Last Admin: 08/20/17 09:26 Dose: 5 mg Aspirin (Ecotrin) 81 mg PO DAILY [facility] Last Admin: 08/21/17 10:01 Dose: 81 mg Heparin Sodium (Porcine) (Heparin) 5,000 units SC Q8 [facility] Stop: 08/23/17 00:00 Last Admin: 08/22/17 06:30 Dose: Not Given Home Med (Patient's Own Medication) 1 tab PO DAILY [facility] Last Admin: 08/21/17 10:05 Dose: 1 tab Home Med (Patient's Own Medication) 1 tab PO BID [facility] Last Admin: 08/21/17 17:32 Dose: 1 tab Ciprofloxacin (Cipro 400mg/200ml Dsw) 400 mg in 200 mls @ 133 mls/hr IVPB Q12H [facility] PRN Reason: Protocol Last Admin: 08/21/17 21:50 Dose: 133 mls/hr Multivitamins (Hexavitamin) 1 tab PO DAILY [facility] Last Admin: 08/21/17 10:02 Dose: 1 tab Oxycodone/Acetaminophen (Percocet 5/325 Mg Tab) 1 tab PO Q4H PRN PRN Reason: Pain, severe (8-10) Stop: 08/24/17 00:17 Last Admin: 08/22/17 06:28 Dose: 1 tab Pantoprazole Sodium (Protonix Ec Tab) 40 mg PO DAILY [facility] Last Admin: 08/21/17 10:03 Dose: 40 mg Pregabalin (Lyrica) 75 mg PO BID [facility] Last Admin: 08/21/17 17:32 Dose: 75 mg Rosuvastatin Calcium (Crestor) 5 mg PO HS [facility] Last Admin: 08/21/17 21:50 Dose: 5 mg Saccharomyces Boulardii (Florastor) 250 mg PO DAILY [facility] Last Admin: 08/21/17 10:01 Dose: 250 mg Zolpidem Tartrate (Ambien) 5 mg PO [facility] Last Admin: 08/21/17 21:50 Dose: 5 mg - Labs Labs: 08/20/17 10:58 08/20/17 10:58 Assessment and Plan - Assessment and Plan (Free Text) Assessment: HIV HCV TIA Ulcerative proctitis Nausea, vomiting - resolved. s/p EGD showing mild gastritis, hiatal hernia Plan: - Advance diet as tolerated - Continue with PPI therapy - Follow up EGD biopsy results - Follow up stool study results - May resume Eliquis from GI standpoint - No further planned intervention, will sign off case. Patient requires additional outpatient follow up for ulcerative proctitis. Please reconsult as necessary, thank you.
[2017-08-22] MEDS: Ciprofloxacin 400mg/200ml D5W 400 MG/200 ML BAG IVPB SCH ×2 (11:17→21:51)
[2017-08-22] MEDS: Multiple Vitamins Tab PO SCH (11:53)
--- NOTE | 2017-08-22 12:42 | PN ---
DATE: 08/22/2017 TIME OF EVALUATION: 06:55 a.m. NEUROLOGICAL PROBLEM: Transient right cerebral dysfunction manifesting with left sensory deficit. VITAL SIGNS: Blood pressure 114/67, mean arterial pressure of 82, respiratory rate 18, temperature 98.1, pulse rate 76 and regular. The patient is sleeping, comfortable, responds on calling his first name. Follows all commands. No right and left confusion. The symptoms what he was admitted for with left-sided facial numbness and left arm numbness with weakness all gone. WORKUP: MRI of the brain showed periventricular ischemic changes consistent with his age and blood pressure, associating with cerebral atrophy. Carotid Doppler does not show any significant stenosis. RECENT BLOOD WORKUP: WBC 5, hemoglobin 11.3, hematocrit 33, platelet 155. Sodium 138, potassium 3.9, chloride 105, bicarbonate 17, creatinine 1.1, GFR more than 60, glucose 116. TSH 0.56, homocysteine 22.03. Immunoprotein electrophoresis shows faint band of kappa and lambda light chain noted in immunofixation. RECOMMENDATIONS: The patient may need further workup for his abnormal immunoprotein electrophoresis to rule out multiple myeloma. The patient is on folic acid supplements for his homocystinuria. I would like to continue the same at present when medically stable. inhibitor can be started because of his either vascular dementia or senile dementia type of earlier onset. The patient will be followed while he is in the hospital . Pal Osuna MD
[2017-08-22] MEDS: Saccharomyces Boulardi 250 mg Cap PO SCH (14:07)
[2017-08-22] MEDS: MESALAMINE 800 MG PO SCH ×2 (14:08→17:59)
[2017-08-22] MEDS: Pantoprazole 40 mg EC Tab PO SCH (14:09)
--- NOTE | 2017-08-22 16:48 | CP.PCM.PN ---
Subjective - Date & Time of Evaluation Date of Evaluation: 08/22/17 Time of Evaluation: 10:20 - Subjective Subjective: clinically same Objective - Vital Signs/Intake and Output Vital Signs (last 24 hours): Temp Pulse Resp BP Pulse Ox 97 F L 83 17 102/62 99 08/22/17 09:55 08/22/17 14:18 08/22/17 10:25 08/22/17 14:18 08/22/17 10:25 Intake and Output: 08/22/17 08/22/17 06:59 18:59 Output Total 600 Balance -600 - Medications Medications: Current Medications Amlodipine Besylate (Norvasc) 10 mg PO DAILY [facility] Last Admin: 08/22/17 14:08 Dose: 10 mg Apixaban (Eliquis) 5 mg PO BID [facility] Aspirin (Ecotrin) 81 mg PO DAILY [facility] Last Admin: 08/22/17 11:53 Dose: Not Given Heparin Sodium (Porcine) (Heparin) 5,000 units SC Q8 [facility] Stop: 08/23/17 00:00 Last Admin: 08/22/17 15:01 Dose: 5,000 units Home Med (Patient's Own Medication) 1 tab PO DAILY [facility] Last Admin: 08/22/17 14:08 Dose: 1 tab Home Med (Patient's Own Medication) 1 tab PO BID [facility] Last Admin: 08/22/17 14:08 Dose: 1 tab Ciprofloxacin (Cipro 400mg/200ml Dsw) 400 mg in 200 mls @ 133 mls/hr IVPB Q12H [facility] PRN Reason: Protocol Last Admin: 08/22/17 11:17 Dose: 133 mls/hr Multivitamins (Hexavitamin) 1 tab PO DAILY [facility] Last Admin: 08/22/17 11:53 Dose: Not Given Oxycodone/Acetaminophen (Percocet 5/325 Mg Tab) 1 tab PO Q4H PRN PRN Reason: Pain, severe (8-10) Stop: 08/24/17 00:17 Last Admin: 08/22/17 16:28 Dose: 1 tab Pantoprazole Sodium (Protonix Ec Tab) 40 mg PO DAILY [facility] Last Admin: 08/22/17 14:09 Dose: 40 mg Pregabalin (Lyrica) 75 mg PO BID [facility] Last Admin: 08/22/17 14:16 Dose: 75 mg Rosuvastatin Calcium (Crestor) 5 mg PO [facility] Last Admin: 08/21/17 21:50 Dose: 5 mg Saccharomyces Boulardii (Florastor) 250 mg PO DAILY [facility] Last Admin: 08/22/17 14:07 Dose: 250 mg Zolpidem Tartrate (Ambien) 5 mg PO [facility] Last Admin: 08/21/17 21:50 Dose: 5 mg - Labs Labs: 08/20/17 10:58 08/20/17 10:58 - Constitutional Appears: Well - Head Exam Head Exam: ATRAUMATIC, NORMAL INSPECTION, NORMOCEPHALIC - Eye Exam Eye Exam: EOMI, Normal appearance, PERRL Pupil Exam: NORMAL ACCOMODATION, PERRL - ENT Exam ENT Exam: Mucous Membranes Moist, Normal Exam - Neck Exam Neck Exam: Full ROM, Normal Inspection. absent: Lymphadenopathy - Respiratory Exam Respiratory Exam: Decreased Breath Sounds - Cardiovascular Exam Cardiovascular Exam: REGULAR RHYTHM, +S1, +S2 - GI/Abdominal Exam GI & Abdominal Exam: Soft, Diminished Bowel Sounds - Rectal Exam Rectal Exam: Deferred
[2017-08-22 17:07] VITALS: RESP 20
[2017-08-22 21:36] LABS: ALBUMIN (PEP) 3.1 g/dL (3.8-4.8); ALPHA-1-GLOBULIN (PEP) 0.3 g/dL (0.2-0.3)
[2017-08-23] MEDS: Oxycodone/Acetaminophen 5/325 mg Tab PO PRN ×3 (01:55→10:53)
[2017-08-23 06:22] LABS: BASO # 0.1 K/uL (0.0-0.2); BASO % 1.5 % (0.0-2.0); EOS # 0.3 K/uL (0.0-0.7); EOS % 7.5 % (0.0-4.0); HEMOGLOBIN 10.5 g/dL (12.0-18.0); LYMPH # 1.9 K/uL (1.0-4.3); LYMPH % 43.6 % (20.0-40.0); MEAN CELL VOLUME 93.2 fL (80.0-94.0); MEAN CORPUSCULAR HEMOGLOBIN 31.7 pg (27.0-31.0); MONO # 0.6 K/uL (0.0-0.8); MONO % 13.1 % (0.0-10.0); NEUT # 1.5 K/uL (1.8-7.0); NEUT % 34.3 % (50.0-75.0); RBC 3.31 Mil/uL (4.40-5.90); RED CELL DISTRIBUTION WIDTH 13.6 % (11.5-14.5); WHITE BLOOD COUNT 4.3 K/uL (4.8-10.8)
[2017-08-23 07:07] LABS: BLOOD UREA NITROGEN 18 mg/dL (9-20); CALCIUM 9.3 mg/dl (8.6-10.4); GFR AFRICAN-AMERICAN > 60; GFR NON-AFRICAN AMERICAN 55
[2017-08-23 09:05] VITALS: BP 101/55; TEMP 98; O2SAT 97
[2017-08-23] MEDS: MESALAMINE 800 MG PO SCH (10:51)
[2017-08-23] MEDS: Multiple Vitamins Tab PO SCH (10:52)
[2017-08-23] MEDS: Saccharomyces Boulardi 250 mg Cap PO SCH (10:52)
[2017-08-23] MEDS: Ciprofloxacin 400mg/200ml D5W 400 MG/200 ML BAG IVPB SCH (10:52)
[2017-08-23] MEDS: Pantoprazole 40 mg EC Tab PO SCH (10:54)
--- NOTE | 2017-08-23 14:00 | CP.PCM.PN ---
Subjective - Date & Time of Evaluation Date of Evaluation: 08/23/17 Time of Evaluation: 11:35 Objective - Vital Signs/Intake and Output Vital Signs (last 24 hours): Temp Pulse Resp BP Pulse Ox 98.0 F 78 20 101/55 L 97 08/23/17 07:10 08/23/17 07:10 08/23/17 07:10 08/23/17 07:10 08/23/17 07:10 Intake and Output: 08/23/17 08/23/17 06:59 18:59 Intake Total 480 Balance 480 - Medications Medications: Current Medications Amlodipine Besylate (Norvasc) 10 mg PO DAILY [facility] Last Admin: 08/23/17 10:52 Dose: 10 mg Apixaban (Eliquis) 5 mg PO BID [facility] Last Admin: 08/23/17 10:54 Dose: 5 mg Aspirin (Ecotrin) 81 mg PO DAILY [facility] Last Admin: 08/23/17 10:54 Dose: 81 mg Home Med (Patient's Own Medication) 1 tab PO DAILY [facility] Last Admin: 08/23/17 10:51 Dose: 1 tab Home Med (Patient's Own Medication) 1 tab PO BID [facility] Last Admin: 08/23/17 10:51 Dose: 1 tab Ciprofloxacin (Cipro 400mg/200ml Dsw) 400 mg in 200 mls @ 133 mls/hr IVPB Q12H [facility] PRN Reason: Protocol Last Admin: 08/23/17 10:52 Dose: 133 mls/hr Multivitamins (Hexavitamin) 1 tab PO DAILY [facility] Last Admin: 08/23/17 10:52 Dose: 1 tab Oxycodone/Acetaminophen (Percocet 5/325 Mg Tab) 1 tab PO Q4H PRN PRN Reason: Pain, severe (8-10) Stop: 08/24/17 00:17 Last Admin: 08/23/17 10:53 Dose: 1 tab Pantoprazole Sodium (Protonix Ec Tab) 40 mg PO DAILY [facility] Last Admin: 08/23/17 10:54 Dose: 40 mg Pregabalin (Lyrica) 75 mg PO BID [facility] Last Admin: 08/23/17 10:50 Dose: 75 mg Rosuvastatin Calcium (Crestor) 5 mg PO HS [facility] Last Admin: 08/22/17 21:51 Dose: 5 mg Saccharomyces Boulardii (Florastor) 250 mg PO DAILY [facility] Last Admin: 08/23/17 10:52 Dose: 250 mg Zolpidem Tartrate (Ambien) 5 mg PO [facility] Last Admin: 08/22/17 21:51 Dose: 5 mg - Labs Labs: 08/23/17 06:11 08/23/17 06:11
[2017-08-23 17:12] VITALS: PULSE 73
== END 2017-08-23 14:46 | disposition home or self-care (01) ==
LOC: C.ER 02:20 → C.9E 09:33 → C.6T 10:00
PROVIDERS: ADMIT Internal Medicine Nephrology; ATTEND Internal Medicine Nephrology
DX: G45.9 Transient cerebral ischemic attack, unspecified (principal); D63.8 Anemia in other chronic diseases classified elsewhere; E78.5 Hyperlipidemia, unspecified; E86.0 Dehydration; F17.210 Nicotine dependence, cigarettes, uncomplicated; G81.94 Hemiplegia, unspecified affecting left nondominant side; I10 Essential (primary) hypertension; J45.909 Unspecified asthma, uncomplicated; I82.401 Acute embolism and thrombosis of unspecified deep veins of right lower extremity; Z21 Asymptomatic human immunodeficiency virus [HIV] infection status; B19.10 Unspecified viral hepatitis B without hepatic coma; G25.3 Myoclonus; G31.9 Degenerative disease of nervous system, unspecified
CPT/HCPCS: 36415; 70450; 70551; 71275; 80048; 80053; 80061; 82948; 83090; 83735; 83883; 84100; 84155; 84165; 84439; 84443; 85025; 85378; 86334; 86592; 87045; 87177; 87209; 87230; 88305; 88312; 88313; 88342; 93005; 93306; 93880; 93970; 96374; 97116; 97162; 99285; G0378; G8978; G8979; J0744; J1644; J1885; J2405; J7040; J7120; Q9967